=== PATIENT | female | born 1945 | race Caucasian/White ===

== ENCOUNTER → 2018-03-05 | Outpatient (CLI) | payer OTHER ==
--- NOTE | 2018-03-06 07:56 | MAMMOGRAPHY REPORT ---
THIS REPORT HAS BEEN AMENDED. BILATERAL DIGITAL SCREENING MAMMOGRAM TOMOSYNTHESIS WITH CAD: 03/05/2018 CLINICAL HISTORY: Routine screening. Patient has no complaints. TECHNIQUE: The study was acquired using full field digital technology and interpreted from soft copy. Breast tomosynthesis in addition to standard 2D mammography was performed. Current study was also ev aluated with a Computer Aided Detection (CAD) system. COMPARISON: No prior exams were available for comparison. BREAST COMPOSITION: There are scattered areas of fibroglandular density in both breasts. FINDINGS: No suspicious mass, architectural distortion or cluster of microcalcifications is seen. IMPRESSION: ACR BI-RADS CATEGORY 1: NEGATIVE There is no mammographic evidence of malignancy. Prior outside mammograms are currently being reques dwight and if obtained they will be reviewed, compared to the current exam to assess for any more subtle changes, and an addendum will be made to this report. Otherwise, a 1 year screening mammogram is re commended. The patient will receive written notification of the results. Some breast cancers are not detected with mammography. A negative mammographic report should not mariam y biopsy if a clinically suggestive mass is present. Brandy Trujillo M.D. ay/:03/05/2018 17:15:33 Production Consultant: RT Wyatt(Doc)(Tu), [facility] letter sent: Normal 08/13 BI-RADS Code: ACR BI-RADS Category 1: Negative AMENDMENT: 03/12/2018 Brandy Trujillo M.D. Prior outside mammograms from [facility] dated 11/17/2004, 03/10/2009, 03/23/2010, 03/24/2011, , 01/11/2014, 12/12/2015 became available for review. There is stable asymmetry in the posterior right breast along the posterior nipple line on the cc view. No new suspicious masses, asymmetries, areas of architectural distortion or suspicious calcifications identified bilaterally. Recommend ro utine screening mammography in 1 year. Amended BI-RADS: ACR BI-RADS Category 2: Benign letter sent: Normal 08/13
== END | disposition home or self-care (01) ==
LOC: C.MAMM 13:49
PROVIDERS: ATTEND Family Medicine
DX: Z12.31 Encounter for screening mammogram for malignant neoplasm of breast (principal)

== ENCOUNTER 2021-01-11 06:25 | Inpatient (IN) ==
--- NOTE | 2020-12-08 08:55 | PAT Medication Instructions ---
Medication Instructions Date of Service December 08, 2020 Home Medications Medication Instructions Recorded antiarthritic combination no.2 900 See Rx Instructions PO DAILY #90 04/09/19 mg tablet tab solifenacin 5 mg tablet 5 mg PO DAILY #30 tab 11/21/20 amlodipine 5 mg tablet 5 mg PO BID #180 tab 11/24/20 hydrochlorothiazide 25 mg tablet 25 mg PO BID #180 tab 11/24/20 pravastatin 80 mg tablet 80 mg PO DAILY #90 tab 11/24/20 spironolactone 25 mg tablet 25 mg PO BID #60 tab 11/24/20 antiarthritic combination no.2 900 mg tablet See Rx Instructions PO DAILY flaxseed oil 1,000 mg capsule 250 mg PO QAM evening primrose oil 500 mg capsule 1,000 mg PO QAM multivitamin 1 tab PO QAM ascorbic acid (vitamin C) 500 mg tablet 500 mg PO QAM solifenacin 5 mg tablet 5 mg PO DAILY amlodipine 5 mg tablet 5 mg PO BID hydrochlorothiazide 25 mg tablet 25 mg PO BID pravastatin 80 mg tablet 80 mg PO DAILY spironolactone 25 mg tablet 25 mg PO BID biotin 5,000 mcg SL QAM calcium carbonate-vitamin D3 [Calcium + D] 1 tab PO QAM lysine 1,000 mg PO QAM magnesium 250 mg PO QAM vit A-vit B-zxpqlg-xcjt-copper [Wqvn-Inzp-Jucl(vit A,C-biotin)] 1 cap PO QAM vitamin E 400 unit PO BID STOP taking 2 weeks before surgery (or as soon as possible if surgery is within 2 weeks) antiarthritic combination no.2 900 mg tablet See Rx Instructions PO DAILY flaxseed oil 1,000 mg capsule 250 mg PO QAM evening primrose oil 500 mg capsule 1,000 mg PO QAM lysine 1,000 mg PO QAM vit A-vit U-rhrijf-ykau-copper [Cwly-Vvxh-Vedd(vit A,C-biotin)] 1 cap PO QAM vitamin E 400 unit PO BID DO NOT take the morning of surgery multivitamin 1 tab PO QAM ascorbic acid (vitamin C) 500 mg tablet 500 mg PO QAM solifenacin 5 mg tablet 5 mg PO DAILY hydrochlorothiazide 25 mg tablet 25 mg PO BID spironolactone 25 mg tablet 25 mg PO BID biotin 5,000 mcg SL QAM calcium carbonate-vitamin D3 [Calcium + D] 1 tab PO QAM magnesium 250 mg PO QAM Take morning of surgery With a small sip of water, OTHERWISE NOTHING TO EAT OR DRINK AFTER MIDNIGHT: amlodipine 5 mg tablet 5 mg PO BID pravastatin 80 mg tablet 80 mg PO DAILY Take evening before surgery amlodipine 5 mg tablet 5 mg PO BID hydrochlorothiazide 25 mg tablet 25 mg PO BID spironolactone 25 mg tablet 25 mg PO BID Other Notes If you have any questions please call us at [phone] or [phone] or [phone] or [phone]
--- NOTE | 2020-12-12 09:21 | Anesthesiology Consultation ---
Date of Service December 12, 2020 Assessment & Plan (1) Encounter for pre-operative examination: COVID screening: Per assessment on 12/12: Travel screen negative, no known COVID- 19 positive contacts or current COVID-19 related symptoms. Patient fully vaccinated. Surgeon arranging preop COVID testing. Awaiting results. Chart Review Chart Review: Acceptable Risk for Surgery (pending surgeon-ordered PCP and cardiology clearances) and Patient seen in Pre Admission Testing Teaching & Discussion Pre-Anesthesia Teaching/Discussion Notes: Instructed NPO after midnight before surgery,except medications with 15 cc of water. Medication instructions provided according to the PAT guidelines. History Surgery Operation Date: 01/11/21 08:25 Proposed Procedures p Left Total Knee Revision - Yosvany Neumann DO Height/Weight Height: 5 ft 7 in Weight: 84.9 kg Allergies Allergy/AdvReac Type Severity Reaction Status Date / Time cyclobenzaprine AdvReac Severe Hallucinati Verified 12/08/20 13:08 ons gabapentin AdvReac Severe Hallucinati Verified 12/08/20 13:08 ons hydrocodone AdvReac Severe Hallucinati Verified 12/08/20 13:08 ons *AMITRIPTYLINE/PERPHENAZINE Allergy Unknown Unknown Uncoded 12/08/20 13:08 (Generic Allergy) TRIAVIL,FLEXORIL AdvReac Severe Hallucinati Uncoded 12/08/20 13:08 ons Medications Home Medications Medication Instructions Recorded Confirmed Last Taken antiarthritic combination no.2 900 See Rx Instructions PO DAILY #90 04/09/19 12/02/20 Unknown mg tablet tab flaxseed oil 1,000 mg capsule 250 mg PO QAM cap 02/02/20 12/02/20 Unknown evening primrose oil 500 mg capsule 1,000 mg PO QAM cap 06/02/20 12/02/20 Unknown multivitamin 1 tab PO QAM 06/02/20 12/02/20 Unknown ascorbic acid (vitamin C) 500 mg 500 mg PO QAM 09/08/20 12/02/20 Unknown tablet solifenacin 5 mg tablet 5 mg PO DAILY #30 tab 11/21/20 12/02/20 Unknown amlodipine 5 mg tablet 5 mg PO BID #180 tab 11/24/20 12/02/20 Unknown hydrochlorothiazide 25 mg tablet 25 mg PO BID #180 tab 11/24/20 12/02/20 Unknown pravastatin 80 mg tablet 80 mg PO DAILY #90 tab 11/24/20 12/02/20 Unknown spironolactone 25 mg tablet 25 mg PO BID #60 tab 11/24/20 12/02/20 Unknown biotin 5,000 mcg SL QAM 11/30/20 12/02/20 Unknown calcium carbonate-vitamin D3 1 tab PO QAM 11/30/20 12/02/20 Unknown [Calcium + D] lysine 1,000 mg PO QAM 11/30/20 12/02/20 Unknown magnesium 250 mg PO QAM 11/30/20 12/02/20 Unknown vit A-vit L-ehkjbd-bqcn-copper 1 cap PO QAM 11/30/20 12/02/20 Unknown [Oohx-Toym-Alqp(vit A,C-biotin)] vitamin E 400 unit PO BID 11/30/20 12/02/20 Unknown Past Medical History Medical History Alopecia Arthritis Claustrophobia Deep vein thrombosis post-op knee scope (2000) Degenerative disc disease GERD (gastroesophageal reflux disease) History of stomach ulcers History of TIA (transient ischemic attack) 30+ years ago HTN (hypertension) Hyperlipidemia Irregular heartbeat PAC/PVCs- follows with [facility] (Dr. Callahan) Urinary urgency + frequency Exercise / Class Metabolic Activity III < 4 Walking/Shop/Light housework (one flight of stairs (no chest pain, + sob )) Past Family History Family History Aunt Breast cancer Mother Breast cancer Colorectal cancer Father Myocardial infarction Hypertension Brother Parkinson disease Hypertension Grandfather (Maternal) Myocardial infarction Hypertension Grandmother (Maternal) Myocardial infarction Grandmother (Paternal) Myocardial infarction Aunt Breast cancer Aunt Breast cancer Aunt Breast cancer Aunt Breast cancer Aunt Breast cancer Denies family history of Ovarian cancer Prostate cancer Past Surgical History Surgical History H/O oral surgery Gum surgery H/O total hysterectomy History of arthroscopy Left knee History of back surgery x2, removal of Schwannomas (1997 + 1998) History of colonoscopy History of dilatation and curettage History of ear surgery "Water removed" from ear History of esophagogastroduodenoscopy (EGD) History of tonsillectomy and adenoidectomy History of tooth extraction 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 Resolved with "shot." Patient states she was told later that the reason was because they "fo rgot" to give her prescribed post-op medication. No similar issues with other surgeries/anesthesia. Mother- "slow to wake" History of PONV No Hx of PONV and No Hx of Motion Sickness Social History Smoking Status: Never smoker Do You Dip or Chew Tobacco: No Hx Alcohol Use: No Hx Substance Use: No Review of Systems Patient denies chest pain, shortness of breath, fever, chills, cough, wheezing, palpitations. Physical Exam Vital Signs VITALS BP 128/75 P 58 TEMP 98.2 SP02 97%RA RESP 18 PHYSICAL Mildly decreased cervical extension range of motion. Full TMJ range of motion. TMD 3 finger breaths Mallampati Score 3 Dentition: intact, +caps , + bridge (including upper front dental work) Lungs: clear throughout to auscultation Cardiac: regular rate and rhythm, III/ systolic murmur Spine: normal Carotid arteries: negative bruit Extremities: no edema Testing Laboratory Results 12/12/20 09:58 12/12/20 09:58 PT 10.2 Seconds (9.0-12.0) 12/12/20 09:58 INR 1.0 (0.9-1.1) 12/12/20 09:58 APTT 28.8 Seconds (21.0-31.0) 12/12/20 09:58 Hemoglobin A1c 5.7 % (4.5-5.6) H 12/12/20 09:58 Urine Color Dark Yellow 12/12/20 09:58 Urine Appearance Clear (Clear) 12/12/20 09:58 Urine pH 5.0 (4.5-7.5) 12/12/20 09:58 Ur Specific [place] 1.033 (1.000-1.030) H 12/12/20 09:58 Urine Protein Negative (Negative) 12/12/20 09:58 Urine Glucose (UA) Negative (Negative) 12/12/20 09:58 Urine Ketones Trace (Negative) H 12/12/20 09:58 Urine Nitrite Negative (Negative) 12/12/20 09:58 Ur Leukocyte Esterase 1+ (Negative) H 12/12/20 09:58 Urine WBC (Auto) 1-5 /hpf (0-5) 12/12/20 09:58 Urine RBC (Auto) 0-4 /hpf (0-4) 12/12/20 09:58 U Hyaline Cast (Auto) 1-5 /lpf (0-5) 12/12/20 09:58 U Epithel Cells (Auto) >30 /lpf (0-5) H 12/12/20 09:58 Urine Bacteria (Auto) Negative (Negative) 12/12/20 09:58 Blood Type O Positive 12/12/20 09:58 Antibody Screen NEGATIVE 12/12/20 09:58 Electrocardiogram Date: 01/22/20 Sinus rhythm with PVC at 61 bpm. Incomplete right bundle branch block. Moderate voltage criteria for LVH, may be normal variant. Nonspecific ST abnormality. Chest X-Ray Date: 12/12/20 FINDINGS: Lung volumes are normal. Lungs are clear. There is no pneumothorax or pleural effusion. Cardiac size is normal. Mediastinal contours are normal. There is no evidence for pulmonary edema. Incidental note is made of S-shaped scoliosis of the thoracolumbar spine. IMPRESSION: No acute cardiopulmonary findings. Echocardiogram Date: 10/24/18 EF 60 to 65%. No regional wall motion abnormality. Mild concentric LVH. Grade 1 diastolic dysfunction. Mild MR. Moderate TR.
--- NOTE | 2020-12-12 10:41 | XRay Report ---
XR chest Pre-admission PA/Lat CLINICAL HISTORY: Preoperative evaluation. COMPARISON STUDY: No previous studies for comparison. FINDINGS: Lung volumes are normal. Lungs are clear. There is no pneumothorax or pleural effusion. Car diac size is normal. Mediastinal contours are normal. There is no evidence for pulmonary edema. Incid ental note is made of S-shaped scoliosis of the thoracolumbar spine. IMPRESSION: No acute cardiopulmonary findings. ACT 112: Negative or not required by law. Electronically signed by: Sincere Mccoy M.D. 12/12/2020 10:40 AM
[2020-12-12 10:58] LABS: Basophils # (auto) 0.01 K/uL (0-0.2); Basophils % (auto) 0.1 %; Eosinophils % (auto) 1.3 %; Hematocrit (blood only) 42.2 % (37-47); Hemoglobin 14.3 g/dL (12.0-16.0); Immature Granulocytes # (auto) 0.07 K/uL (0.00-0.02); Immature Granulocytes % (auto) 0.9 %; Lymphocytes # (auto) 1.38 K/uL (1.2-3.4); Lymphocytes % (auto) 18.1 %; Mean Corpuscular Hemoglobin 31.5 pg (25-34); Mean Corpuscular Hgb Conc 33.9 g/dL (32-36); Mean Platelet Volume 9.1 fL (7.4-10.4); Monocytes # (auto) 0.74 K/uL (0.11-0.59); Monocytes % (auto) 9.7 %; Neutrophils # (auto) 5.33 K/uL (1.4-6.5); Neutrophils % (auto) 69.9 %; Platelet Count 234 K/uL (130-400); RDW Coefficient of Variation 13.5 % (11.5-14.5); RDW Standard Deviation 45.6 fL (36.4-46.3); Red Blood Count 4.54 M/uL (4.2-5.4); White Blood Count 7.63 K/uL (4.8-10.8)
[2020-12-12 11:05] LABS: Appearance Urine Clear (Clear); Bacteria Urine Automated Negative (Negative); Bilirubin Urine Negative (Negative); Blood Urine Trace (Negative); Color Urine Dark Yellow; Epithelial Cell Urine Auto >30 /lpf (0-5); Glucose Urine UA Negative (Negative); Ketones Urine Trace (Negative); Leukocyte Esterase Urine 1+ (Negative); Nitrite Urine Negative (Negative); Protein Urine Negative (Negative); Specific Gravity Urine 1.033 (1.000-1.030); Urobilinogen Urine Negative (Negative)
[2020-12-12 11:08] LABS: Albumin Level 3.9 gm/dl (3.4-5.0); BUN Creatinine Ratio 35.5 (10-20); Calcium 9.2 mg/dl (8.5-10.1); Est GFR (African American) 68.3; Est GFR (Non-African American) 58.9; Potassium 4.1 mmol/L (3.5-5.1)
[2020-12-12 11:16] LABS: Partial Thromboplastin Ratio 1.1; Partial Thromboplastin Time 28.8 Seconds (21.0-31.0); Prothrombin Time 10.2 Seconds (9.0-12.0)
[2020-12-12 11:26] LABS: RBC Urine Automated 0-4 /hpf (0-4)
[2020-12-12 12:03] LABS: Estimated Average Glucose 117 mg/dl; Hemoglobin A1C 5.7 % (4.5-5.6)
--- NOTE | 2020-12-15 12:05 | History & Physical Report ---
Date of Service December 15, 2020 date of surgery: 01/11/21 Procedure: Left Total Knee Revision Assessment & Plan (1) Aseptic loosening of prosthetic knee: presents with continued left knee pain and instability, her bone scan shows loosening of her knee prosthesis, she would like to proceed with left total knee revision at [facility]. intra-op cultures will be obtained as well. The risks and benefits have been discussed including, but not limited to, risk of infection, nerve injury, stiffness, loss of motion, failure to improve, etc. Reasonable outcomes and options of treatment were discussed. An explanation of appropriate alternatives to the procedure that may be advantageous were discusse d and their risks and benefits, as well as the risks and benefits of not proceeding with treatment. I offered to answer any additional inquiries concerning the treatment involved. All the patient's questions were answered. The patient is agreeable, understanding of the treatment plan and alternatives, and wishes to proceed with the treatment plan. History of Present Illness Chief Complaint: left knee pain Primary Care Provider: Mey Gruber DO Irish is a pleasant 75 year old female who complains of left knee pain, presents for pre op evaluation prior to a left total knee revision arthroplasty at [facility] by Dr Neumann. she originally underwent left TKA by Dr Dangelo on 05/12/2001 and did well for the past several years. she denies any injuries or trauma, denies fever or chills, has intermittent swelling with activities. she also admits to instability to her knee. she had a bone scan performed on 03/10/20 which showed loosening of her left tka. Allergies Allergy/AdvReac Type Severity Reaction Status Date / Time cyclobenzaprine AdvReac Severe Hallucinati Verified 12/08/20 13:08 ons gabapentin AdvReac Severe Hallucinati Verified 12/08/20 13:08 ons hydrocodone AdvReac Severe Hallucinati Verified 12/08/20 13:08 ons *AMITRIPTYLINE/PERPHENAZINE Allergy Unknown Unknown Uncoded 12/08/20 13:08 (Generic Allergy) TRIAVIL,FLEXORIL AdvReac Severe Hallucinati Uncoded 12/08/20 13:08 ons Home Medications Medication Instructions Recorded Confirmed Type antiarthritic combination no.2 900 See Rx Instructions PO DAILY #90 04/09/19 12/02/20 Rx mg tablet tab flaxseed oil 1,000 mg capsule 250 mg PO QAM cap 02/02/20 12/02/20 History evening primrose oil 500 mg capsule 1,000 mg PO QAM cap 06/02/20 12/02/20 History multivitamin 1 tab PO QAM 06/02/20 12/02/20 History ascorbic acid (vitamin C) 500 mg 500 mg PO QAM 09/08/20 12/02/20 History tablet solifenacin 5 mg tablet 5 mg PO DAILY #30 tab 11/21/20 12/02/20 Rx amlodipine 5 mg tablet 5 mg PO BID #180 tab 11/24/20 12/02/20 Rx hydrochlorothiazide 25 mg tablet 25 mg PO BID #180 tab 11/24/20 12/02/20 Rx pravastatin 80 mg tablet 80 mg PO DAILY #90 tab 11/24/20 12/02/20 Rx spironolactone 25 mg tablet 25 mg PO BID #60 tab 11/24/20 12/02/20 Rx biotin 5,000 mcg SL QAM 11/30/20 12/02/20 History calcium carbonate-vitamin D3 1 tab PO QAM 11/30/20 12/02/20 History [Calcium + D] lysine 1,000 mg PO QAM 11/30/20 12/02/20 History magnesium 250 mg PO QAM 11/30/20 12/02/20 History vit A-vit J-pdebwh-grcf-copper 1 cap PO QAM 11/30/20 12/02/20 History [Lgii-Sjaw-Xkra(vit A,C-biotin)] vitamin E 400 unit PO BID 11/30/20 12/02/20 History Past Med/Surg History Medical History Alopecia Arthritis Claustrophobia Deep vein thrombosis post-op knee scope (2000) Degenerative disc disease GERD (gastroesophageal reflux disease) History of stomach ulcers History of TIA (transient ischemic attack) 30+ years ago HTN (hypertension) Hyperlipidemia Irregular heartbeat PAC/PVCs- follows with [facility] (Dr. 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 Family History Aunt Breast cancer Mother Breast cancer Colorectal cancer Father Myocardial infarction Hypertension Brother Parkinson disease Hypertension Grandfather (Maternal) Myocardial infarction Hypertension Grandmother (Maternal) Myocardial infarction Grandmother (Paternal) Myocardial infarction Aunt Breast cancer Aunt Breast cancer Aunt Breast cancer Aunt Breast cancer Aunt Breast cancer Denies family history of Ovarian cancer Prostate cancer Social History Smoking Status: Never smoker Second Hand Exposure: Yes ( A CHILD); Hx Alcohol Use: No Hx Substance Use: No Preferred Language: Welsh Communication Ability: Effective Visual Impairment: No Limitations Hearing Ability: Normal Cutter Machine Required: No Beliefs That Will Affect Care: None marital status: Current Living Situation: Spouse current occupational status: retired Feels Safe at Home: Yes caffeine: No during the past year weight has: remained stable Dental Care, Regularly: Yes Physical Activity Frequency: 3-4 Times per Week Physical Activity Frequency Comment: walking and gardening Seatbelt Use: always Sunscreen Use: Yes Assistive Devices: Glasses Review of Systems Review of Systems: All systems reviewed & are unremarkable except as noted in HPI & below Constitutional: no fever, no chills and no sweats Respiratory: no cough and no dyspnea Cardiovascular: no chest pain, no dyspnea and no orthopnea Gastrointestinal: no abdominal pain, no nausea and no vomiting Musculoskeletal: as per Subjective / HPI Physical Exam Physical Exam: HT: 5ft 7in WT: 84.9kg Constitutional: WD/WN, vitals as above no acute distress Respiratory: normal respiratory effort, lungs clear to auscultation no respiratory distress, no labored breathing and does not use accessory muscles Cardiovascular: RRR, no murmur, no edema Gastrointestinal (Abdomen): normal bowel sounds, soft, nontender, no hepatosplenomegaly Musculoskeletal: Left Knee Exam Ambulates with a limp, overall neutral alignment, there is no atrophy warmth or ecchymosis noted, mild effusion, maximum tenderness medial aspect of her tibia. negative patellar Apprehension , no crepitation with motion, valgus stress Negative, Varus stress Negative, no Extensor lag, Pain with Active range of motion, also passive painful ROM, Range of motion 0/3/115. No pain with active/passive ROM of ankle. Lower Extremity Strength normal. Lower Extremity Neuro-vascular is normal Results & Data Results & Data ([facility]) Laboratory Results Laboratory Results WBC 7.63 K/uL (4.8-10.8) 12/12/20 09:58 RBC 4.54 M/uL (4.2-5.4) 12/12/20 09:58 Hgb 14.3 g/dL (12.0-16.0) 12/12/20 09:58 Hct 42.2 % (37-47) 12/12/20 09:58 MCV 93.0 fL (80-100) 12/12/20 09:58 MCH 31.5 pg (25-34) 12/12/20 09:58 MCHC 33.9 g/dL (32-36) 12/12/20 09:58 RDW Std Deviation 45.6 fL (36.4-46.3) 12/12/20 09:58 RDW Coeff of Ronald 13.5 % (11.5-14.5) 12/12/20 09:58 Plt Count 234 K/uL (130-400) 12/12/20 09:58 MPV 9.1 fL (7.4-10.4) 12/12/20 09:58 Immature Gran % (Auto) 0.9 % 12/12/20 09:58 Neut % (Auto) 69.9 % 12/12/20 09:58 Lymph % (Auto) 18.1 % 12/12/20 09:58 [place] % (Auto) 9.7 % 12/12/20 09:58 Eos % (Auto) 1.3 % 12/12/20 09:58 Baso % (Auto) 0.1 % 12/12/20 09:58 Neut # (Auto) 5.33 K/uL (1.4-6.5) 12/12/20 09:58 Lymph # (Auto) 1.38 K/uL (1.2-3.4) 12/12/20 09:58 [place] # (Auto) 0.74 K/uL (0.11-0.59) H 12/12/20 09:58 Eos # (Auto) 0.10 K/uL (0-0.5) 12/12/20 09:58 Baso # (Auto) 0.01 K/uL (0-0.2) 12/12/20 09:58 Immature Gran # (Auto) 0.07 K/uL (0.00-0.02) H 12/12/20 09:58 PT 10.2 Seconds (9.0-12.0) 12/12/20 09:58 INR 1.0 (0.9-1.1) 12/12/20 09:58 APTT 28.8 Seconds (21.0-31.0) 12/12/20 09:58 PTT Ratio 1.1 12/12/20 09:58 Sodium 138 mmol/L (136-145) 12/12/20 09:58 Potassium 4.1 mmol/L (3.5-5.1) 12/12/20 09:58 Chloride 106 mmol/L (98-107) 12/12/20 09:58 Carbon Dioxide 27 mmol/L (21-32) 12/12/20 09:58 Anion Gap 5.0 (3-11) 12/12/20 09:58 BUN 33 mg/dl (7-18) H 12/12/20 09:58 Creatinine 0.94 mg/dl (0.6-1.2) 12/12/20 09:58 Est Cr Clr Drug Dosing 57.0 ml/min 12/12/20 09:58 Est GFR ( Amer) 68.3 12/12/20 09:58 Est GFR (Non-Af Amer) 58.9 12/12/20 09:58 BUN/Creatinine Ratio 35.5 (10-20) H 12/12/20 09:58 Glucose 107 mg/dl (70-99) H 12/12/20 09:58 Estimat Average Glucose 117 mg/dl 12/12/20 09:58 Hemoglobin A1c 5.7 % (4.5-5.6) H 12/12/20 09:58 Calcium 9.2 mg/dl (8.5-10.1) 12/12/20 09:58 Albumin 3.9 gm/dl (3.4-5.0) 12/12/20 09:58 Urine Color Dark Yellow 12/12/20 09:58 Urine Appearance Clear (Clear) 12/12/20 09:58 Urine pH 5.0 (4.5-7.5) 12/12/20 09:58 Ur Specific [place] 1.033 (1.000-1.030) H 12/12/20 09:58 Urine Protein Negative (Negative) 12/12/20 09:58 Urine Glucose (UA) Negative (Negative) 12/12/20 09:58 Urine Ketones Trace (Negative) H 12/12/20 09:58 Urine Blood Trace (Negative) H 12/12/20 09:58 Urine Nitrite Negative (Negative) 12/12/20 09:58 Urine Bilirubin Negative (Negative) 12/12/20 09:58 Urine Urobilinogen Negative (Negative) 12/12/20 09:58 Ur Leukocyte Esterase 1+ (Negative) H 12/12/20 09:58 Urine WBC (Auto) 1-5 /hpf (0-5) 12/12/20 09:58 Urine RBC (Auto) 0-4 /hpf (0-4) 12/12/20 09:58 U Hyaline Cast (Auto) 1-5 /lpf (0-5) 12/12/20 09:58 U Epithel Cells (Auto) >30 /lpf (0-5) H 12/12/20 09:58 Urine Bacteria (Auto) Negative (Negative) 12/12/20 09:58 Urine Crystals Not Reportable 12/12/20 09:58 Blood Type O Positive 12/12/20 09:58 Antibody Screen NEGATIVE 12/12/20 09:58 Impressions Chest X-Ray 12/12/20 08:14 XR chest Pre-admission PA/Lat CLINICAL HISTORY: Preoperative evaluation. COMPARISON STUDY: No previous studies for comparison. FINDINGS: Lung volumes are normal. Lungs are clear. There is no pneumothorax or pleural effusion. Cardiac size is normal. Mediastinal contours are normal. There is no evidence for pulmonary edema. Incidental note is made of S-shaped scoliosis of the thoracolumbar spine. IMPRESSION: No acute cardiopulmonary findings. ACT 112: Negative or not required by law. Electronically signed by: Sincere Mccoy M.D. 12/12/2020 10:40 AM Diagnostic Findings left knee Radiographs reveal a cemented total knee replacement arthroplasty, question loosening tibial component. The patella is tracking well. ASSESSMENT: status post cemented posterior stabilized total knee replacement arthroplasty with question loosening of tka. bone scan reviewed from 03/10/20 showing loosening of her total knee arthroplasty
[~2021-01-11 06:25] MED LIST: ACETAMINOPHEN 500 MG TAB PO SCH; CeleBREX 200 MG CAP PO SCH; FAMOTIDINE 20 MG TAB PO SCH; GABAPENTIN 300 MG CAP PO SCH; LR 500ML BOLUS, THEN 15ML/HR IV SCH; METOCLOPRAMIDE HCL 10 MG TABLET PO SCH; ROPIVACAINE 0.5% HCL/PF 150 MG, BUPIVACAINE 0.75% MPF 20 ML, EPINEPHrine 30MG/30ML (OR ... INSTIL SCH; Scopolamine 1 MG TDSY TD SCH; ceFAZolin 2000MG 2,000 MG/15 ML SYR IV SCH; dexAMETHasone 4 MG TAB PO SCH
[2021-01-11] MEDS ORDERED: EPINEPHrine INJ 1 MG/ML AMP ONE (06:29)
[2021-01-11] MEDS ORDERED: ROPIVACAINE 0.5% 5 MG/ML 30 ML VIAL ONE (06:29)
[2021-01-11] MEDS ORDERED: BUPIVACAINE 0.5 % 5 MG/1 ML PF 10ML VIAL ONE (06:29)
--- NOTE | 2021-01-11 07:23 | History & Physical Bridge Note ---
Date of Service January 11, 2021 History & Physical Bridge Note I have examined the patient, reviewed the History & Physical and in the interval since the performance of the History & Physical I have noted the following changes of clinical significance: no changes noted
[2021-01-11] MEDS ORDERED: LABETALOL HCL IV 5 MG/ML 20ML IV PRN (08:03)
[2021-01-11] MEDS ORDERED: ONDANSETRON INJ 2 MG/ML 2 ML VIAL IV PRN ×2 (08:03→16:43)
[2021-01-11] MEDS ORDERED: ATROPINE SULFATE 0.1 MG/ML 10ML SYR IV PRN (08:03)
[2021-01-11] MEDS ORDERED: ePHEDrine sulfate 50 MG/ML AMP IV PRN (08:03)
[2021-01-11] MEDS ORDERED: MEPERIDINE HCL 25 MG/ML CARP/VIAL IV PRN (08:03)
[2021-01-11] MEDS ORDERED: PHENYLEPHRINE 100MCG/ML 5ML SYR IV PRN (08:03)
[2021-01-11] MEDS ORDERED: fentaNYL citrate 100 MCG/2 ML VIAL IV PRN (08:03)
[2021-01-11] MEDS ORDERED: MIDAZOLAM HCL 1 MG/ML 2ML VIAL ONE (08:23)
[2021-01-11] MEDS ORDERED: LIDOCAINE 2% 2 ML VIAL/AMP(20MG/ML) INFIL ONE (08:23)
[2021-01-11] MEDS ORDERED: PROPOFOL IV EMULSION 10 MG/ML 20 ML VIAL IV ONE (08:23)
[2021-01-11] MEDS ORDERED: ONDANSETRON INJ 2 MG/ML 2 ML VIAL ONE ×2 (08:23→10:10)
[2021-01-11] MEDS ORDERED: fentaNYL citrate 100 MCG/2 ML VIAL ONE ×3 (08:23→11:19)
[2021-01-11] MEDS ORDERED: ORTHO JOINT ANESTHETIC ONE (09:18)
[2021-01-11] MEDS ORDERED: DEXAMETHASONE SOD INJ 4 MG/ML VIAL ONE (10:10)
[2021-01-11] MEDS ORDERED: HYDROmorphone INJ 2 MG/ML SYR/VIAL ONE (11:59)
--- NOTE | 2021-01-11 12:58 | Operative Report ---
Post Operative Report Pre & Post Diagnosis Operation Date: 01/11/21 08:40 Pre-Op Diagnosis: Left Knee Loose Hardware Post-Op Diagnosis: Left Knee Loose Hardware I identified the patient and participated in the time-out.: Yes Procedure Operation Date: 01/11/21 08:40 Actual Procedures p Left Total Knee Revision(Left) utilizing [employer] Seven revision total knee system size femur 5 x 14 x 162 mm offset 6:00 5 mm medial distal augment tibia size 318 polyethylene ethylene by 13 x 162 mm offset at eleven 5 mm medial 5 mm lateral offset 29 oval patella- Yosvany Neumann DO Surgeon Yosvany Neumann DO [employer] Kuldip POOL Estimated Blood Loss 25 Findings Consistent with Post-Op Diagnosis 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 placed by another surgeon approximately 20 years prior aseptic loosening of the tibia preoperative work-up including sed rate C-reactive protein values were all within normal limits Synovasure was no alpha defense since and a no call no other cultures of any positive growth were noted intraoperative frozen section of of tissue from thin femoral bone interface tibial bone interface revealed less than 5 white cells per high-power field with no acute inflammation noted no organisms the tibial and femoral component were both loose as was the patellar component Specimens Bone and removed implant Drains Medium bore Hemovac Anesthesia Type MAC Spinal Regional Complications none Disposition Accompanied Patient To Recovery: No Disposition: Recovery Room Indications Patient presents after having ongoing complaints of pain about the left total knee arthroplasty and had developing aseptic loosening of the implant patient presents for implant removal intraoperative frozen section as well as a revision total knee arthroplasty utilizing a [employer] total knee arthroplasty as noted above the above intraoperative findings were noted patient is failed attempted conservative management quitting relative rest activity modification bracing the above intraoperative findings were noted Description of Procedure Initiation of regional anesthesia the left lower extremity was socially prepped and draped you sterile fashion surgeon's type incision the region of the previous anterior incision was made dissection was carried down to the region of the extensor mechanism medial parapatellar incision was made the patella was subluxed lateralward the synovectomy was performed at this time the distal femoral component was noted to have loosening and was subsequently removed utilizing a series of small osteotomes flexible artist osteotomes and that was removed a good bone stock was still preserved samples of tissue from the interface at the bone implant interface were sent for frozen section revealed less than 5 white cells per high-power field with no acute inflammation the tibial component was also removed utilizing Ultra-Drive as well as osteotomes and arteries chisels the medial portion of the tibial component was visibly loose part of the stemmed component that was still fixated and it was removed subsequently this the cement was removed from the part of the canal of the tibia the wound was irrigated cups amounts of sterile saline solution the patellar component was noted to have undermining and was also noted to be loose was removed subsequently appropriate reaming for the femur and tibia were performed the sample of the tissue from the interface of the implant on the tibia was also sent for white cells per high-power field was noted to be less than 5 white cells with no acute inflammation cells and performed a thorough irrigation synovectomy irrigation debridement lavage appropriate trials with a 5 femur 14 x 160 with a offset of 2 mm at 6:00 5 mm distal medial augment was placed femoral component was noted excellent fixation fit tibial component was sized to a 3 x 1 8 x 13 with 160 mm stem 2 mm offset at 11:00 with 2 medial and lateral distal augments 5 mm each 29 oval patella recreate normal patellofemoral mechanics socially the components were taken through full range of motion stability to be excellent both flexion extension mid flexion wound was irrigated tourniquet was deflated left down for 20minutes the wound was irrigated the components having been removed the final components were then subsequent brought on the back table the tourniquet was reapplied after 20 minutes of downtime the tourniquet being reinflated the wound was irrigated with copious muscle sterile saline solution the standard joint mix was placed in the posterior capsule and periosteal tissue subsequently the wound having been thoroughly irrigated the tibia followed by the femur followed by the patellar components were also uncemented to think of excellent range of motion with quite excellent stability excess cement was removed the wound having been irrigated the medial parapatellar incision closed with #1 Vicryl the a medium Hemovac in place a deep wound subcu was closed with 0 Vicryl 2-0 Vicryl skin clips sterile compressive dressings placed patient was subsequently taken to recovery in stable condition please note CORINE Naylor was necessary prepping draping traction wound closure of deep fascia subcu skin was necessary for the case I attest to the content of the Intraoperative Record and any orders documented therein. Any exceptions are noted below.
--- NOTE | 2021-01-11 14:28 | XRay Report ---
TWO VIEWS LEFT KNEE CLINICAL HISTORY: Postoperative examination. FINDINGS: AP and crosstable lateral portable views of the left knee are obtained. A left knee arthrop lasty is in near anatomic alignment. There are long tibial and femoral stems. There has been undersur face remodeling of the patella. No acute fracture is seen. There are expected postoperative changes a round the knee including skin clips, a surgical drain, soft tissue edema, and subcutaneous gas. IMPRESSION: Expected postoperative changes status post left knee arthroplasty. No acute fracture is s een. ACT 112: Negative or not required by law. Electronically signed by: Aj Sethi M.D. 01/11/2021 2:27 PM
[2021-01-11] MEDS ORDERED: NALOXONE HCL 0.4 MG/1 ML VIAL/CARP IV STA ×2 (14:29→14:40)
[2021-01-11] MEDS ORDERED: NALOXONE HCL 0.4 MG/1 ML VIAL/CARP ONE (14:29)
--- NOTE | 2021-01-11 15:26 | Communication Note ---
Date of Service: January 11, 2021 The patient was brought to PACU with an oral airway. She was breathing on her own but requiring jaw thrust to maintain respirations. Her vitals remained s table with SpO2 in the high 90s. Her pupils were noted to be significantly miotic. The patient was given several doses of naloxone in PACU. She became more arousable and her pupils slightly dilated. The patient was under general anesthesia for several hours and had received hydromorphone and fentanyl in the OR. The PACU nurses were instructed to monitor the patient and not to give her any further narcotics. Dr. Suggs evaluated the patient with me and will take over her care.
[2021-01-11] MEDS ORDERED: Scopolamine CHECK PATCH PLACEMENT SCH (16:00)
--- NOTE | 2021-01-11 16:37 | Anesthesiology Progress Note ---
Date of Service January 11, 2021 Anesthesia Post Procedure Vital Signs Vital Signs: Temp Pulse Pulse Resp BP Pulse Ox 01/11/21 16:15 65 18 115/69 95 01/11/21 16:05 36.3 C L 69 18 118/65 95 01/11/21 15:55 59 L 14 122/71 97 01/11/21 15:45 61 18 119/72 97 01/11/21 15:35 66 16 123/68 97 01/11/21 15:25 63 16 131/83 95 01/11/21 15:15 67 16 133/70 95 01/11/21 15:05 62 16 126/81 97 01/11/21 14:55 78 16 144/74 H 97 01/11/21 14:45 81 16 132/72 97 01/11/21 14:35 62 14 111/62 95 01/11/21 14:25 63 16 110/62 95 01/11/21 14:15 60 14 103/60 94 01/11/21 14:05 66 14 109/60 94 01/11/21 13:55 70 16 116/59 L 97 01/11/21 13:45 36.5 C 72 16 124/67 97 01/11/21 09:15 62 16 130/70 99 01/11/21 09:10 59 L 16 123/66 98 01/11/21 09:05 61 18 119/65 98 01/11/21 07:06 36.8 C 69 167/92 H 99 Pain Intensity Left Knee: Pain Intensity: 8 Right Leg: Pain Intensity: 9 Transfer of Care Handoff Completed per policy Notes Mental Status: alert / awake / arousable Patient Amnestic to Procedure: Yes Nausea / Vomiting: adequately controlled Pain: adequately controlled Airway Patency, RR, SpO2: stable & adequate BP & HR: stable & adequate Hydration State: stable & adequate Anesthetic Complications: no major complications apparent
[2021-01-11] MEDS ORDERED: bisacodyL 10 MG SUPP PR PRN (16:43)
[2021-01-11] MEDS ORDERED: NALOXONE HCL 0.4 MG/1 ML VIAL/CARP IV PRN (16:43)
[2021-01-11] MEDS ORDERED: MAGNESIUM HYDROXIDE SUSP 30 ML UDC PO PRN (16:43)
[2021-01-11] MEDS ORDERED: HYDROmorphone INJ 0.5 MG/0.5 ML SYR IV PRN (16:43)
--- NOTE | 2021-01-11 16:45 | Anesthesiology Progress Note ---
Date of Service January 11, 2021 Anesthesia Post Procedure Vital Signs Vital Signs: Temp Pulse Pulse Resp BP Pulse Ox 01/11/21 16:15 65 18 115/69 95 01/11/21 16:05 36.3 C L 69 18 118/65 95 01/11/21 15:55 59 L 14 122/71 97 01/11/21 15:45 61 18 119/72 97 01/11/21 15:35 66 16 123/68 97 01/11/21 15:25 63 16 131/83 95 01/11/21 15:15 67 16 133/70 95 01/11/21 15:05 62 16 126/81 97 01/11/21 14:55 78 16 144/74 H 97 01/11/21 14:45 81 16 132/72 97 01/11/21 14:35 62 14 111/62 95 01/11/21 14:25 63 16 110/62 95 01/11/21 14:15 60 14 103/60 94 01/11/21 14:05 66 14 109/60 94 01/11/21 13:55 70 16 116/59 L 97 01/11/21 13:45 36.5 C 72 16 124/67 97 01/11/21 09:15 62 16 130/70 99 01/11/21 09:10 59 L 16 123/66 98 01/11/21 09:05 61 18 119/65 98 01/11/21 07:06 36.8 C 69 167/92 H 99 Pain Intensity Left Knee: Pain Intensity: 8 Right Leg: Pain Intensity: 9 Transfer of Care Handoff Completed per policy Notes Mental Status: alert / awake / arousable and participated in evaluation Patient Amnestic to Procedure: Yes Nausea / Vomiting: adequately controlled Pain: adequately controlled Airway Patency, RR, SpO2: stable & adequate BP & HR: stable & adequate Hydration State: stable & adequate Anesthetic Complications: no major complications apparent
[2021-01-11] MEDS: ceFAZolin 2000MG 2,000 MG/15 ML SYR IV SCH (18:26)
[2021-01-11] MEDS: FERROUS GLUCONATE 324 MG TAB PO SCH (18:26)
[2021-01-11] MEDS: ACETAMINOPHEN 500 MG TAB PO SCH ×2 (18:27→21:51)
[2021-01-11] MEDS: SODIUM CHLORIDE 0.9% 1000ML 1,000 ML IV SCH (18:36)
[2021-01-11] MEDS: oxyCODONE HCL IR 5 MG TAB (IMMEDIATE RELEASE) PO PRN (20:28)
[2021-01-11] MEDS: DOCUSATE SODIUM 100 MG CAP PO SCH (20:38)
[2021-01-11] MEDS: ASPIRIN 81 MG ECTAB PO SCH (20:38)
[2021-01-11] MEDS: SENNA 8.6 MG TAB PO SCH (20:38)
[2021-01-11] MEDS: hydroCHLOROthiazide 25 MG TAB PO SCH (20:46)
[2021-01-11] MEDS: amLODIPine BESYLATE 5 MG TAB PO SCH (20:46)
[2021-01-11] MEDS: SPIRONOLACTONE 25 MG TAB PO SCH (20:46)
[2021-01-12] MEDS: ceFAZolin 2000MG 2,000 MG/15 ML SYR IV SCH (01:55)
[2021-01-12] MEDS: oxyCODONE HCL IR 5 MG TAB (IMMEDIATE RELEASE) PO PRN (02:19)
[2021-01-12] MEDS: SODIUM CHLORIDE 0.9% 1000ML 1,000 ML IV SCH ×2 (02:29→11:43)
[2021-01-12 06:38] LABS: Hematocrit (blood only) 32.2 % (37-47); Mean Corpuscular Hemoglobin 31.9 pg (25-34); Mean Corpuscular Hgb Conc 34.2 g/dL (32-36); Mean Corpuscular Volume 93.3 fL (80-100); Mean Platelet Volume 8.7 fL (7.4-10.4); Platelet Count 220 K/uL (130-400); RDW Coefficient of Variation 13.1 % (11.5-14.5); RDW Standard Deviation 44.9 fL (36.4-46.3); Red Blood Count 3.45 M/uL (4.2-5.4); White Blood Count 24.06 K/uL (4.8-10.8)
--- NOTE | 2021-01-12 07:02 | Orthopedic Progress Note ---
Date of Service January 12, 2021 Assessment & Plan (1) History of revision of total replacement of left knee joint: POD #1 s/p Left TKA revision pt/ot dvt proph with J[facility]/SCD/ASA plan for d/c home with home health PT Admission and Anticipated Discharge Date Admission Date: January 11, 2021 Subjective POD #1 s/p Left TKA revision Review of Systems Constitutional: no fever, no chills and no sweats Respiratory: no cough and no dyspnea Cardiovascular: no chest pain and no dyspnea Gastrointestinal: no abdominal pain, no nausea and no vomiting Physical Exam Physical Exam: Vital Signs Temp 36.2 C L 01/11/21 23:19 Pulse 56 L 01/12/21 02:26 Resp 20 01/12/21 02:26 BP 115/72 01/12/21 02:26 Pulse Ox 96 01/12/21 02:26 Intake & Output 01/11/21 01/12/21 01/12/21 18:59 06:59 18:59 Intake Total 1550 / 2538.333 988.333 / 2538.333 Output Total 465 / 1340 875 / 1340 Balance 1085 / 1198.333 113.333 / 1198.333 Weight 86.772 kg Intake: IV 0 / 788.333 788.333 / 788.333 Lactated Ringe r's 1,000 ml @ 15 0 / 0 mls/hr IV .Q24 H [facility] Rx#: [id number] Sodium Chlorid e 0.9% 1000ML 1, 788.333 / 788.333 000 ml @ 100 m ls/hr IV .Q10H [facility] Rx#:[id number] IV Perioperative 1550 / 1550 Oral 200 / 200 Output: Estimated Blood Loss 25 / 25 Urine Amount (Ca theter) 300 / 875 575 / 875 Zavala/Indwelli ng 300 / 875 575 / 875 Drain Output 140 / 440 300 / 440 Left Knee Hemo vac 140 / 440 300 / 440 Other: Weight Measureme nt Method Standing Scale Constitutional: WD/WN, vitals as above + acute distress Musculoskeletal: Left Leg: NVDI, calf SNT, negative eitan sign. DP palpable, able to wiggle toes/ankle movement without difficulty. dressing clean dry and intact. Vital Signs Temp 36.2 C L 01/11/21 23:19 Pulse 56 L 06/03/21 02:26 Resp 20 01/12/21 02:26 BP 115/72 01/12/21 02:26 Pulse Ox 96 01/12/21 02:26 Intake & Output 01/11/21 01/12/21 01/12/21 18:59 06:59 18:59 Intake Total 1550 / 2538.333 988.333 / 2538.333 Output Total 465 / 1340 875 / 1340 Balance 1085 / 1198.333 113.333 / 1198.333 Weight 86.772 kg Intake: IV 0 / 788.333 788.333 / 788.333 Lactated Ringe r's 1,000 ml @ 15 0 / 0 mls/hr IV .Q24 H [facility] Rx#: [id number] Sodium Chlorid e 0.9% 1000ML 1, 788.333 / 788.333 000 ml @ 100 m ls/hr IV .Q10H [facility] Rx#:[id number] IV Perioperative 1550 / 1550 Oral 200 / 200 Output: Estimated Blood Loss 25 / 25 Urine Amount (Ca theter) 300 / 875 575 / 875 Zavala/Indwelli ng 300 / 875 575 / 875 Drain Output 140 / 440 300 / 440 Left Knee Hemo vac 140 / 440 300 / 440 Other: Weight Measureme nt Method Standing Scale Results & Data ([facility]) Vital Signs (Past 12 Hours) Vital Signs Temp Pulse Resp BP Pulse Ox 01/12/21 02:26 56 L 20 115/72 96 01/11/21 23:19 36.2 C L 53 L 16 100/61 95 01/11/21 20:43 64 127/75 98 01/11/21 19:13 36.3 C L 55 L 16 116/71 95 Laboratory Results Laboratory Results WBC 24.06 K/uL (4.8-10.8) H 01/12/21 06:27 RBC 3.45 M/uL (4.2-5.4) L 01/12/21 06:27 Hgb 11.0 g/dL (12.0-16.0) L 01/12/21 06:27 Hct 32.2 % (37-47) L 01/12/21 06:27 MCV 93.3 fL (80-100) 01/12/21 06:27 MCH 31.9 pg (25-34) 01/12/21 06:27 MCHC 34.2 g/dL (32-36) 01/12/21 06:27 RDW Std Deviation 44.9 fL (36.4-46.3) 01/12/21 06:27 RDW Coeff of Ronald 13.1 % (11.5-14.5) 01/12/21 06:27 Plt Count 220 K/uL (130-400) 01/12/21 06:27 MPV 8.7 fL (7.4-10.4) 01/12/21 06:27 Immature Gran % (Auto) 0.9 % 12/12/20 09:58 Neut % (Auto) 69.9 % 12/12/20 09:58 Lymph % (Auto) 18.1 % 12/12/20 09:58 [place] % (Auto) 9.7 % 12/12/20 09:58 Eos % (Auto) 1.3 % 12/12/20 09:58 Baso % (Auto) 0.1 % 12/12/20 09:58 Neut # (Auto) 5.33 K/uL (1.4-6.5) 12/12/20 09:58 Lymph # (Auto) 1.38 K/uL (1.2-3.4) 12/12/20 09:58 [place] # (Auto) 0.74 K/uL (0.11-0.59) H 12/12/20 09:58 Eos # (Auto) 0.10 K/uL (0-0.5) 12/12/20 09:58 Baso # (Auto) 0.01 K/uL (0-0.2) 12/12/20 09:58 Immature Gran # (Auto) 0.07 K/uL (0.00-0.02) H 12/12/20 09:58 PT 10.2 Seconds (9.0-12.0) 12/12/20 09:58 INR 1.0 (0.9-1.1) 12/12/20 09:58 APTT 28.8 Seconds (21.0-31.0) 12/12/20 09:58 PTT Ratio 1.1 12/12/20 09:58 Sodium 138 mmol/L (136-145) 12/12/20 09:58 Potassium 4.1 mmol/L (3.5-5.1) 12/12/20 09:58 Chloride 106 mmol/L (98-107) 12/12/20 09:58 Carbon Dioxide 27 mmol/L (21-32) 12/12/20 09:58 Anion Gap 5.0 (3-11) 12/12/20 09:58 BUN 33 mg/dl (7-18) H 12/12/20 09:58 Creatinine 0.94 mg/dl (0.6-1.2) 12/12/20 09:58 Est Cr Clr Drug Dosing 57.0 ml/min 12/12/20 09:58 Est GFR ( Amer) 68.3 12/12/20 09:58 Est GFR (Non-Af Amer) 58.9 12/12/20 09:58 BUN/Creatinine Ratio 35.5 (10-20) H 12/12/20 09:58 Glucose 107 mg/dl (70-99) H 12/12/20 09:58 Estimat Average Glucose 117 mg/dl 12/12/20 09:58 Hemoglobin A1c 5.7 % (4.5-5.6) H 12/12/20 09:58 Calcium 9.2 mg/dl (8.5-10.1) 12/12/20 09:58 Albumin 3.9 gm/dl (3.4-5.0) 12/12/20 09:58 Urine Color Dark Yellow 12/12/20 09:58 Urine Appearance Clear (Clear) 12/12/20 09:58 Urine pH 5.0 (4.5-7.5) 12/12/20 09:58 Ur Specific [place] 1.033 (1.000-1.030) H 12/12/20 09:58 Urine Protein Negative (Negative) 12/12/20 09:58 Urine Glucose (UA) Negative (Negative) 12/12/20 09:58 Urine Ketones Trace (Negative) H 12/12/20 09:58 Urine Blood Trace (Negative) H 12/12/20 09:58 Urine Nitrite Negative (Negative) 12/12/20 09:58 Urine Bilirubin Negative (Negative) 12/12/20 09:58 Urine Urobilinogen Negative (Negative) 12/12/20 09:58 Ur Leukocyte Esterase 1+ (Negative) H 12/12/20 09:58 Urine WBC (Auto) 1-5 /hpf (0-5) 12/12/20 09:58 Urine RBC (Auto) 0-4 /hpf (0-4) 12/12/20 09:58 U Hyaline Cast (Auto) 1-5 /lpf (0-5) 12/12/20 09:58 U Epithel Cells (Auto) >30 /lpf (0-5) H 12/12/20 09:58 Urine Bacteria (Auto) Negative (Negative) 12/12/20 09:58 Urine Crystals Not Reportable 12/12/20 09:58 COVID-19 Eval Order Covid19 [facility]Now [facility] 01/11/21 06:45 SARS-CoV-2, RNA, NAAT NEGATIVE (NEGATIVE) 01/11/21 06:45 Blood Type O Positive 01/11/21 06:51 Antibody Screen NEGATIVE 01/11/21 06:51 Crossmatch See Detail 01/11/21 06:51 Impressions Chest X-Ray 12/12/20 08:14 XR chest Pre-admission PA/Lat CLINICAL HISTORY: Preoperative evaluation. COMPARISON STUDY: No previous studies for comparison. FINDINGS: Lung volumes are normal. Lungs are clear. There is no pneumothorax or pleural effusion. Cardiac size is normal. Mediastinal contours are normal. There is no evidence for pulmonary edema. Incidental note is made of S-shaped scoliosis of the thoracolumbar spine. IMPRESSION: No acute cardiopulmonary findings. ACT 112: Negative or not required by law. Electronically signed by: Sincere Mccoy M.D. 12/12/2020 10:40 AM Knee X-Ray 01/11/21 13:55 TWO VIEWS LEFT KNEE CLINICAL HISTORY: Postoperative examination. FINDINGS: AP and crosstable lateral portable views of the left knee are obtained. A left knee arthroplasty is in near anatomic alignment. There are long tibial and femoral stems. There has been undersurface remodeling of the patella. No acute fracture is seen. There are expected postoperative changes around the knee including skin clips, a surgical drain, soft tissue edema, and subcutaneous gas. IMPRESSION: Expected postoperative changes status post left knee arthroplasty. No acute fracture is seen. ACT 112: Negative or not required by law. Electronically signed by: Aj Sethi M.D. 01/11/2021 2:27 PM
[2021-01-12 07:19] LABS: BUN Creatinine Ratio 26.9 (10-20); Calcium 8.5 mg/dl (8.5-10.1); Creatinine Clr Calc Pharmacy 43.3 ml/min; Est GFR (African American) 48.4 ml/min; Est GFR (Non-African American) 41.8 ml/min
[2021-01-12] MEDS: ACETAMINOPHEN 500 MG TAB PO SCH ×3 (07:52→21:26)
[2021-01-12] MEDS: FERROUS GLUCONATE 324 MG TAB PO SCH ×2 (09:59→18:12)
[2021-01-12] MEDS: amLODIPine BESYLATE 5 MG TAB PO SCH (10:01)
[2021-01-12] MEDS: ASCORBIC ACID 500 MG TAB PO SCH (10:03)
[2021-01-12] MEDS: ASPIRIN 81 MG ECTAB PO SCH ×2 (10:03→20:00)
[2021-01-12] MEDS: CALCIUM 600MG + VIT D 400 IU TAB PO SCH (10:04)
[2021-01-12] MEDS: DOCUSATE SODIUM 100 MG CAP PO SCH ×2 (10:06→20:00)
[2021-01-12] MEDS: MAGNESIUM OXIDE 400 MG TAB PO SCH (10:09)
[2021-01-12] MEDS: MULTIVITAMIN TAB PO SCH (10:10)
[2021-01-12] MEDS: PRAVASTATIN SOD 40 MG TAB PO SCH (10:11)
[2021-01-12] MEDS: SPIRONOLACTONE 25 MG TAB PO SCH (10:15)
[2021-01-12] MEDS: hydroCHLOROthiazide 25 MG TAB PO SCH (10:15)
--- NOTE | 2021-01-12 10:37 | XRay Report ---
XR chest 1V portable CLINICAL HISTORY: elevated WBC COMPARISON STUDY: Chest radiograph December 12, 2020. FINDINGS: Lung volumes are diminished. There is S-shaped scoliosis of the thoracolumbar spine. No pne umothorax or pleural effusion is noted. Mild enlargement of the cardiac silhouette is accentuated on this hypoventilatory study. There is minimal left basilar opacity. This favors atelectasis. There may be minimal right basilar opacity. IMPRESSION: Low lung volumes with minimal bibasilar opacities that favor atelectasis. ACT 112: Negative or not required by law. Electronically signed by: Sincere Mccoy M.D. 01/12/2021 10:36 AM
--- NOTE | 2021-01-12 10:49 | Hospitalist Consultation ---
Date of Consultation January 12, 2021 Assessment & Plan (1) Confusion, postoperative: POD 1 s/p L TKA revision with Dr. Neumann PT/OT/pain management/DVT prophylaxis per primary service (ASA 81mg BID) --> developed confusion overnight and ended up pulling out IV, Kaminski and her surgical drain Of note, per anesthesia note yesterday afternoon, "The patient was brought to PACU with an oral airway. She was breathing on her own but requiring jaw thrust to maintain respirations. Her vitals remained stable with SpO2 in the high 90s. Her pupils were noted to be significantly miotic. The patient was given several doses of naloxone in PACU. She became more arousable and her pupils slightly dilated. The patient was under general anesthesia for several hours and had received hydromorphone and fentanyl in the OR. The PACU nurses were instructed to monitor the patient and not to give her any further narcotics. Dr. Suggs evaluated the patient with me and will take over her care. " Possible prior adverse rxn to anesthesia vs pain medications vs infection/inflammatory response -- Allergy to hydrocodone with hallucinations (she did also get a scopolamine patch pre-op and anticholinergic with anesthesia may also be contributing) She recalls looking down and seeing blood but did not remember events. Did get dose of oxycodone around 2am and this may be culprit but will also investigate other causes WBC elevated to 24k post-operative from 5.5k. Bicarb 20 H/h dropped from 14.3/11 -- acute blood loss anemia from surgery/above and dilutional from IVF which have since been discontinued Will obtain CXR, repeat UA (hx hematuria in setting of UTI/urinary freq/urg and started vesicae recently to help), ammonia, TSH, EKG Hold HCTZ and spironolactone -- IVF ordered for MICHELLE and dehydration Avoid oxycodone -- utilize tramadol if needed but would try to get relief with Tylenol alone for now *CXR with atelectasis but possible L basilar opacity -- Ordered incentive spirometer -- 91% on RA Continue to monitor (2) History of revision of total replacement of left knee joint: pod 1 management per surgery (3) HTN (hypertension): BP slightly low -- recent addition of BP medication last year and followed by Dr Dranov 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 evening but will hold AM HCTZ, Spironolactone given MICHELLE Cr 1.24 and provide some IVF Resume on reassessment of BP/BMP Continue to monitor (4) Hyperlipidemia: continue statin (5) History of TIA (transient ischemic attack): Hx of, related to poorly controlled blood pressure -- on ASA on "as needed basis" and pravastatin 80mg daily ASA 81 -- on BID for DVT proph No focal deficits at this time (6) Diastolic dysfunction: follows locally w Dr Callahan last echo in October 2018 noting EF 60-65%, grade 1 diastolic dysfunction, Mild MR, mod TR hypovolemic as above (7) Incomplete RBBB: Hx of -- repeating EKG, trop (8) Hypothyroidism: Supposed history of such, but per most recent PCP note, currently not on medication and noted patient was told her thyroid function is ok -- did previously try medication however did not feel well with medication apparently and last TSH in May 2020 was within normal range Repeating TSH DVT Proph -- ASA 81mg BID Thank you for allowing hospitalist to participate int he care of Ms Muhammad. Hospitalist service will follow along. Please call with any urgent questions/concerns. Supervising Physician Co-Signing Physician Notes Patient was seen and examined independently I discussed the case with Ana Drake PAC I reviewed pertinent past medical social family history and also the plan of care and agree with the plan of care. Patient was seen in her room without much distress her leg looked to be fine no explanation for her leukocytosis the previous noted issues with her oxycodone and the seemingly resolved. Physical neurological exam was found to be nonfocal her knee looked to be with typical postoperative changes there is no changes with regard to her pulmonary exam or abdominal exam. This time will recommend having a hospital overnight because of her white count 24,000 and mental status changes this morning. We will continue to evaluate her Any exceptions will be noted below History of Present Illness Reason for Consultation: post op med management -- post-op confusion Requesting Physician: Dr Neumann Attending Physician: Yosvany Neumann DO History of Present Illness 75 yo female presented for LEFT TKA revision by Dr Neumann. She had been doing well until overnight after administration of oxycodone around 2am and subsequently pulled her IV site, kaminski catheter and Hemovac out. She states she does not remember doing this until after it happened. There may be a chance she has had issues with anesthesia in the past however it does appear that this could have been another family member but she does endorse waking up from anethesia and feeling like something was sitting on her chest and seeing a white cloud when she was in [place] for prior surgery. She states she is very sensitive to medications and that she cannot take hydrocodone. Discussed may possibly be from the oxycodone and we will try alternative medications for pain control if needed to avoid further confusion. She denies fever, chills, chest pain. She endorses chronic shortness of breath w ith exertion but denies any increased shortness of breath, cough, or sputum production. Does have some suprapubic discomfort but she states this is chronic. No visual changes, blurred vision, neck pain or headache. Of note, she states her BP was elevated significantly last summer and her Turning Machine Operator, Dr Callahan, got her in with nephrology and they have added several medications to help gain better control, which she notes has been excellent since starting these medications. Review of her chart indicates elevated WBC to 24k from 5k pre-operatively. Cr elevated to 1.24 from normal baseline. Will place on IVF, obtain CXR and repeat UA. No focal deficits, given her hx of TIA. No need for CT Head at this time. She did have a DVT post-op knee scope 2010 -- does have swelling and slightly tender. Will get Venous Doppler to r/o DVT. Allergies Allergy/AdvReac Type Severity Reaction Status Date / Time cyclobenzaprine AdvReac Severe Hallucinati Verified 01/11/21 06:47 ons gabapentin AdvReac Severe Hallucinati Verified 01/11/21 06:47 ons hydrocodone AdvReac Severe Hallucinati Verified 01/11/21 06:47 ons amitriptyline AdvReac Hallucinati Verified 01/11/21 08:14 ng perphenazine AdvReac Hallucinati Verified 01/11/21 08:14 ng Home Medications Medication Instructions Recorded Confirmed Type antiarthritic combination no.2 900 See Rx Instructions PO DAILY #90 04/09/19 01/11/21 Rx mg tablet tab flaxseed oil 1,000 mg capsule 250 mg PO QAM cap 02/02/20 01/11/21 History evening primrose oil 500 mg capsule 1,000 mg PO QAM cap 06/02/20 01/11/21 History multivitamin 1 tab PO QAM 06/02/20 01/11/21 History ascorbic acid (vitamin C) 500 mg 500 mg PO QAM 09/08/20 01/11/21 History tablet solifenacin 5 mg tablet 5 mg PO DAILY #30 tab 11/21/20 01/11/21 Rx amlodipine 5 mg tablet 5 mg PO BID #180 tab 11/24/20 01/11/21 Rx hydrochlorothiazide 25 mg tablet 25 mg PO BID #180 tab 11/24/20 01/11/21 Rx pravastatin 80 mg tablet 80 mg PO DAILY #90 tab 11/24/20 01/11/21 Rx biotin 5,000 mcg SL QAM 11/30/20 01/11/21 History calcium carbonate-vitamin D3 1 tab PO QAM 11/30/20 01/11/21 History [Calcium + D] lysine 1,000 mg PO QAM 11/30/20 01/11/21 History magnesium 250 mg PO QAM 11/30/20 01/11/21 History vit A-vit H-kpiecu-fnhh-copper 1 cap PO QAM 11/30/20 01/11/21 History [Qeoq-Utkv-Nces(vit A,C-biotin)] vitamin E 400 unit PO BID 11/30/20 01/11/21 History spironolactone 25 mg tablet 25 mg PO BID #180 tab 12/20/20 01/11/21 Rx Patient History Medical History Alopecia Arthritis Claustrophobia Deep vein thrombosis post-op knee scope (2000) Degenerative disc disease GERD (gastroesophageal reflux disease) History of stomach ulcers History of TIA (transient ischemic attack) 30+ years ago HTN (hypertension) Hyperlipidemia Irregular heartbeat PAC/PVCs- follows with [facility] (Dr. 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 Family History Aunt Breast cancer Mother Breast cancer Colorectal cancer Father Myocardial infarction Hypertension Brother Parkinson disease Hypertension Grandfather (Maternal) Myocardial infarction Hypertension Grandmother (Maternal) Myocardial infarction Grandmother (Paternal) Myocardial infarction Aunt Breast cancer Aunt Breast cancer Aunt Breast cancer Aunt Breast cancer Aunt Breast cancer Denies family history of Ovarian cancer Prostate cancer Social History Smoking Status: Never smoker Second Hand Exposure: Yes ( A CHILD); Do You Dip or Chew Tobacco: No; Hx Alcohol Use: No Hx Substance Use: No Preferred Language: Sinhala Communication Ability: Effective Visual Impairment: No Limitations Hearing Ability: Normal Client Retention Specialist Required: No Beliefs That Will Affect Care: None marital status: Current Living Situation: Spouse current occupational status: retired How many Children do You have: 2 Feels Safe at Home: Yes Safety Concerns: Feels Safe At This Time caffeine: No during the past year weight has: remained stable Dental Care, Regularly: Yes Physical Activity Frequency: 3-4 Times per Week Physical Activity Frequency Comment: walking and gardening Seatbelt Use: always Sunscreen Use: Yes Assistive Devices: Walker Review of Systems Review of Systems: All systems reviewed & are unremarkable except as noted in HPI & below Physical Exam Constitutional: WD/WN, vitals as above cooperative and comfortable; no acute distress confused at times Eyes: + anicteric sclerae and PERRL ENMT: Ears: no hearing impairment dry mm Neck: trachea midline, no thyromegaly Respiratory: normal respiratory effort, lungs clear to auscultation Auscultation: + crackles (bibasilar) Cardiovascular: Rate/Rhythm: regular rate and regular rhythm Heart Sounds: + murmur (ANGELA) Vessels: no JVD Extremities: + calf tenderness (L leg) and + edema (L leg) Gastrointestinal (Abdomen): Inspection/Auscultation: abdomen normal to inspection and normal bowel sounds Percussion/Palpation: + abdomen tender (suprapubic) and abdomen soft; no guarding and abdomen not rigid Musculoskeletal: dressing to R knee c/d/i prevena/hemovac not intact NVI pulses palpable L calf tender to palpation strength equal b/l Skin: no rashes, warm and dry Neurologic: patellar DTR's 2+ bilat, sensation intact and PERRL, EOMI, accommodation nl, no face palsy, no dysarthria Psychiatric: Orientation: alert, oriented to person, oriented to place, oriented to time (intermittient confusion) and cooperative Genitourinary: NO KAMINSKI Results & Data Results & Data ([facility]) Vital Signs (Past 12 Hours) Vital Signs Temp Pulse Resp BP BP Pulse Ox 01/12/21 07:11 36.7 C 60 16 113/65 91 01/12/21 02:26 56 L 20 115/72 96 01/11/21 23:19 36.2 C L 53 L 16 100/61 95 Laboratory Results 01/12/21 01/12/21 Range/Units 06:27 06:27 WBC 24.06 H (4.8-10.8) K/uL RBC 3.45 L (4.2-5.4) M/uL Hgb 11.0 L (12.0-16.0) g/dL Hct 32.2 L (37-47) % MCV 93.3 (80-100) fL MCH 31.9 (25-34) pg MCHC 34.2 (32-36) g/dL RDW Std Deviation 44.9 (36.4-46.3) fL RDW Coeff of Ronald 13.1 (11.5-14.5) % Plt Count 220 (130-400) K/uL MPV 8.7 (7.4-10.4) fL Sodium 138 (136-145) mmol/L Potassium 4.0 (3.5-5.1) mmol/L Chloride 107 (98-107) mmol/L Carbon Dioxide 20 L (21-32) mmol/L Anion Gap 11.0 (3-11) BUN 34 H (7-18) mg/dl Creatinine 1.25 H (0.6-1.2) mg/dl Est Cr Clr Drug Dosing 43.3 ml/min Est GFR ( Amer) 48.4 ml/min Est GFR (Non-Af Amer) 41.8 ml/min BUN/Creatinine Ratio 26.9 H (10-20) Glucose 137 H (70-99) mg/dl Calcium 8.5 (8.5-10.1) mg/dl Diagnostic Findings Knee X-Ray 01/11/21 13:55 TWO VIEWS LEFT KNEE CLINICAL HISTORY: Postoperative examination. FINDINGS: AP and crosstable lateral portable views of the left knee are obtained. A left knee arthroplasty is in near anatomic alignment. There are long tibial and femoral stems. There has been undersurface remodeling of the patella. No acute fracture is seen. There are expected postoperative changes around the knee including skin clips, a surgical drain, soft tissue edema, and subcutaneous gas. IMPRESSION: Expected postoperative changes status post left knee arthroplasty. No acute fracture is seen. ACT 112: Negative or not required by law. Electronically signed by: Aj Sethi M.D. 01/11/2021 2:27 PM Chest X-Ray 01/12/21 10:04 XR chest 1V portable CLINICAL HISTORY: elevated WBC COMPARISON STUDY: Chest radiograph December 12, 2020. FINDINGS: Lung volumes are diminished. There is S-shaped scoliosis of the thoracolumbar spine. No pneumothorax or pleural effusion is noted. Mild enlargement of the cardiac silhouette is accentuated on this hypoventilatory study. There is minimal left basilar opacity. This favors atelectasis. There may be minimal right basilar opacity. IMPRESSION: Low lung volumes with minimal bibasilar opacities that favor atelectasis. ACT 112: Negative or not required by law. Electronically signed by: Sincere Mccoy M.D. 01/12/2021 10:36 AM PG Care Time/CCT Total # of Minutes Spent Total Time Spent with Patient: Total time spent is greater than 50% in coordination of care (as documented) at patient's floor/unit and/or counseling patient: Coding Level of Care Code 65476 Office/OBS Consult Lvl 3 Diagnoses Confusion, postoperative R41.0 History of revision of total replacement of left knee joint Z96.652 HTN (hypertension) I10 Hyperlipidemia E78.5 History of TIA (transient ischemic attack) Z86.73 Diastolic dysfunction I51.89 Incomplete RBBB I45.10 Hypothyroidism E03.9
[2021-01-12 11:56] LABS: Thyroid Stimulating Hormone 0.389 uIu/ml (0.300-4.500); Troponin I < 0.015 ng/ml (0-0.045)
--- NOTE | 2021-01-12 12:36 | Electrocardiogram Report ---
Test Reason : Blood Pressure : / mmHG Vent. Rate : 058 BPM Atrial Rate : 058 BPM P-R Int : 162 ms QRS Dur : 108 ms QT Int : 438 ms P-R-T Axes : 006 -13 007 degrees QTc Int : 429 ms Poor data quality, interpretation may be adversely affected Sinus bradycardia Voltage criteria for left ventricular hypertrophy Abnormal ECG When compared with ECG of 24-APR-2001 15:45, No significant change was found Confirmed by Carmelo Teixeira ([id number]) on 01/12/2021 12:36:03 PM Referred By: Yosvany Neumann Confirmed By:Carmelo Teixeira
[2021-01-12 13:27] LABS: Appearance Urine Clear (Clear); Bacteria Urine Automated Negative (Negative); Bilirubin Urine Negative (Negative); Blood Urine 3+ (Negative); Color Urine Yellow; Epithelial Cell Urine Auto >30 /lpf (0-5); Glucose Urine UA Negative (Negative); Ketones Urine Negative (Negative); Leukocyte Esterase Urine 2+ (Negative); Nitrite Urine Negative (Negative); Protein Urine Negative (Negative); RBC Urine Automated >30 /hpf (0-4); Specific Gravity Urine 1.016 (1.000-1.030); Urobilinogen Urine Negative (Negative)
--- NOTE | 2021-01-12 13:56 | Ultrasound Report ---
LEFT LOWER EXTREMITY VENOUS DOPPLER CLINICAL HISTORY: Left lower extremity pain and swelling. COMPARISON STUDY: No previous studies for comparison. TECHNIQUE: Sonography of the deep venous system of the left lower extremity was performed. Compressi on and augmentation were evaluated. FINDINGS: The left common femoral, superficial femoral and popliteal veins were compressible. Augmen tation was normal. Flow was shown within the deep calf vessels. IMPRESSION: No evidence of deep venous thrombus within the left lower extremity. ACT 112: Negative or not required by law. Electronically signed by: Sincere Mccoy M.D. 01/12/2021 1:54 PM
[2021-01-12 14:17] LABS: Hematocrit (blood only) 31.3 % (37-47); Hemoglobin 10.6 g/dL (12.0-16.0); Mean Corpuscular Hemoglobin 31.1 pg (25-34); Mean Corpuscular Hgb Conc 33.9 g/dL (32-36); Mean Corpuscular Volume 91.8 fL (80-100); Platelet Count 222 K/uL (130-400); RDW Coefficient of Variation 13.4 % (11.5-14.5); RDW Standard Deviation 44.7 fL (36.4-46.3); Red Blood Count 3.41 M/uL (4.2-5.4); White Blood Count 23.74 K/uL (4.8-10.8)
[2021-01-12 14:40] LABS: Basophils # (auto) 0.02 K/uL (0-0.2); Basophils % (auto) 0.1 %; Immature Granulocytes % (auto) 0.4 %; Lymphocytes # (auto) 0.73 K/uL (1.2-3.4); Lymphocytes % (auto) 3.1 %; Monocytes # (auto) 1.83 K/uL (0.11-0.59); Monocytes % (auto) 7.7 %; Neutrophils # (auto) 21.06 K/uL (1.4-6.5); Neutrophils % (auto) 88.7 %
[2021-01-12] MEDS ORDERED: cefTRIAXone SODIUM 2,000 MG in DEXTROSE 5% 50 ML IV SCH (17:00)
--- NOTE | 2021-01-12 17:55 | Ultrasound Report ---
ULTRASOUND KIDNEYS AND BLADDER CLINICAL HISTORY: Hematuria. Low back pain. COMPARISON STUDY: Renal ultrasound dated 05/19/2020. TECHNIQUE: Real-time, grayscale, and color flow sonography of the kidneys and bladder is performed. I mages are reviewed in the transverse and longitudinal planes. FINDINGS: Kidneys: The kidneys demonstrate cortical atrophy. Echotexture is normal. The right kidney measures 1 3.1 x 5.1 x 5.7 cm and the left kidney measures 11.8 x 5.9 x 5.5 cm. There is no hydronephrosis. No shadowing renal calculi are identified. A 1.2 cm cyst is incidentally noted on the left. There is no sonographic evidence of contour deforming renal mass lesion. No perinephric fluid is identified. Bladder: The bladder is normal in appearance. Bilateral ureteral jets were seen. Upper abdomen: Survey images of the liver show evidence of steatosis. IMPRESSION: 1. The kidneys demonstrate cortical atrophy and are without hydronephrosis. 2. No shadowing renal calculi are identified. 3. The bladder is normal as imaged. ACT 112: Negative or not required by law. Electronically signed by: Aj Sethi M.D. 01/12/2021 5:54 PM
[2021-01-12] MEDS: traMADol HCL 50 MG TABLET PO PRN (18:01)
[2021-01-12] MEDS: SENNA 8.6 MG TAB PO SCH (20:00)
[2021-01-13] MEDS: SODIUM CHLORIDE 0.9% 1000ML 1,000 ML IV SCH (00:50)
[2021-01-13] MEDS: traMADol HCL 50 MG TABLET PO PRN (03:21)
[2021-01-13] MEDS: ACETAMINOPHEN 500 MG TAB PO SCH (05:53)
[2021-01-13 06:38] LABS: Hematocrit (blood only) 29.6 % (37-47); Hemoglobin 9.8 g/dL (12.0-16.0); Immature Granulocytes # (auto) 0.06 K/uL (0.00-0.02); Immature Granulocytes % (auto) 0.4 %; Lymphocytes # (auto) 1.18 K/uL (1.2-3.4); Lymphocytes % (auto) 7.8 %; Mean Corpuscular Hemoglobin 31.6 pg (25-34); Mean Corpuscular Hgb Conc 33.1 g/dL (32-36); Mean Corpuscular Volume 95.5 fL (80-100); Mean Platelet Volume 9.2 fL (7.4-10.4); Monocytes # (auto) 1.12 K/uL (0.11-0.59); Monocytes % (auto) 7.4 %; Neutrophils # (auto) 12.82 K/uL (1.4-6.5); Neutrophils % (auto) 84.4 %; Nucleated RBC # (auto) 0.03 K/uL (0-0); Nucleated RBC % (auto) 0.2 %; Platelet Count 212 K/uL (130-400); RDW Coefficient of Variation 13.7 % (11.5-14.5); RDW Standard Deviation 47.4 fL (36.4-46.3); White Blood Count 15.18 K/uL (4.8-10.8)
[2021-01-13 06:49] LABS: BUN Creatinine Ratio 38.1 (10-20); Bilirubin,Total 0.5 mg/dl (0.2-1); Calcium 8.2 mg/dl (8.5-10.1); Creatinine Clr Calc Pharmacy 68.5 ml/min; Est GFR (African American) 84.3 ml/min; Est GFR (Non-African American) 72.7 ml/min; Globulin 2.9 gm/dl (2.5-4.0); Total Protein 5.9 gm/dl (6.4-8.2)
--- NOTE | 2021-01-13 07:05 | Orthopedic Progress Note ---
Date of Service January 13, 2021 Assessment & Plan (1) History of revision of total replacement of left knee joint: POD #2 s/p Left TKA revision pt/ot dvt proph with JESE/SCD/ASA plan for d/c home with home health PT she seems to be doing much better this am, will await CXR, UA and medical wo rkup. reassess this afternoon, we discussed using home health at time of d/c and she is agreeble, will then set up OPPT at [facility] after she completes HHPT Admission and Anticipated Discharge Date Admission Date: January 11, 2021 Subjective POD #2 s/p Left TKA revision denies fever/chills denies CP/SOB Review of Systems Constitutional: no fever and no chills Respiratory: no cough Cardiovascular: no chest pain, no dyspnea and no orthopnea Gastrointestinal: no nausea and no vomiting Physical Exam Physical Exam: Vital Signs Temp 36.8 C 01/12/21 22:11 Pulse 72 01/12/21 22:11 Resp 20 01/12/21 22:11 BP 150/72 H 01/12/21 22:11 Pulse Ox 94 01/12/21 22:11 Intake & Output 01/12/21 01/13/21 01/13/21 18:59 06:59 18:59 Intake Total 914.334 / 1691.667 777.333 / 1691.667 Output Total 350 / 2275 1925 / 2275 Balance 564.334 / -583.333 -1147.667 / -583.3 33 Intake: IV 914.334 / 1691.667 777.333 / 1691.667 Sodium Chlorid e 0.9% 1000ML 1, 844.334 / 1621.667 777.333 / 1621.667 000 ml @ 80 ml s/hr IV .[id number] [facility] Rx#:[id number] cefTRIAXone SO DIUM 2,000 mg In 70 / 70 Dextrose 5% 50 ml @ 100 mls/hr IV Q24H [facility] Rx #:[id number] Output: Urine 350 / 1675 1325 / 1675 Urine Amount (Ca theter) 600 / 600 Straight 600 / 600 Other: # Unmeasured Voi ds 1 Constitutional: WD/WN, vitals as above no acute distress Musculoskeletal: Left knee: NVDI, calf SNT, negative eitan sign. DP palpable, able to wiggle toes/ankle movement without difficulty. AVELINO dressing clean dry and intact. expected post-operative bruising noted. Results & Data ([facility]) Vital Signs (Past 12 Hours) Vital Signs Temp Pulse Resp BP Pulse Ox 01/12/21 22:11 36.8 C 72 20 150/72 H 94
[2021-01-13] MEDS: FERROUS GLUCONATE 324 MG TAB PO SCH (07:59)
[2021-01-13] MEDS: CALCIUM 600MG + VIT D 400 IU TAB PO SCH (07:59)
[2021-01-13] MEDS: ASPIRIN 81 MG ECTAB PO SCH (07:59)
[2021-01-13] MEDS: MULTIVITAMIN TAB PO SCH (07:59)
[2021-01-13] MEDS: ASCORBIC ACID 500 MG TAB PO SCH (07:59)
[2021-01-13] MEDS: MAGNESIUM OXIDE 400 MG TAB PO SCH (08:00)
[2021-01-13] MEDS: PRAVASTATIN SOD 40 MG TAB PO SCH (08:00)
[2021-01-13] MEDS: DOCUSATE SODIUM 100 MG CAP PO SCH (08:00)
--- NOTE | 2021-01-13 08:24 | Hospitalist Progress Note ---
Date of Service January 13, 2021 Assessment & Plan (1) Confusion, postoperative: POD 2 s/p L TKA revision with Dr. Neumann PT/OT/pain management/DVT prophylaxis per primary service (ASA 81mg BID) --> developed confusion overnight 01/11-01/12 and ended up pulling out IV, Zavala and her surgical drain Of note, per anesthesia note yesterday afternoon, "The patient was brought to PACU with an oral airway. She was breathing on her own but requiring jaw thrust to maintain respirations. Her vitals remained stable with SpO2 in the high 90s. Her pupils were noted to be significantly miotic. The patient was given several doses of naloxone in PACU. She became more arousable and her pupils slightly dilated. The patient was under general anesthesia for several hours and had received hydromorphone and fentanyl in the OR. The PACU nurses were instructed to monitor the patient and not to give her any further narcotics. Dr. Suggs evaluated the patient with me and will take over her care. " Possible prior adverse rxn to anesthesia vs pain medications vs infection/inflammatory response -- Allergy to hydrocodone with hallucinations (she did also get a scopolamine patch pre-op and anticholinergic with anesthesia may also be contributing) She recalls looking down and seeing blood but did not remember events. Did get dose of oxycodone around 2am and this may be culprit but will also investigate other causes WBC elevated to 24k post-operative from 5.5k. Bicarb 20 H/h dropped from 14.3/11 -- acute blood loss anemia from surgery/above and dilutional from IVF which have since been discontinued CXR negative UA without bacteria but with leuk est/WBC --> given ROcephin and would dc with Keflex for another 2 days given symptoms and improvement of those symptoms. -- Cx pending AMmonia wnl CTAP without acute infection, chronic changes ECHO LV systolic function normal, EF 6-065%, no wma, Grade I diastolic. Mild , Mild MN, mod-severe TR ---> recommend f/u with Cardiology at d/c. RVSP elevated 30-40mmhG TSH wnl Hold HCTZ and spironolactone -- IVF ordered for MICHELLE and dehydration Avoid oxycodone -- utilize tramadol if needed but would try to get relief with Tylenol alone for now (2) History of revision of total replacement of left knee joint: pod 2 management per surgery (3) HTN (hypertension): BP slightly low -- recent addition of BP medication last year and followed by Dr Holman Held HCTZ, spironolactone, amlodipine but ok to resume in AM Cr now stable 0.79, no further IVF (4) Hyperlipidemia: continue statin (5) History of TIA (transient ischemic attack): Hx of, related to poorly controlled blood pressure -- on ASA on "as needed basis" and pravastatin 80mg daily ASA 81 -- on BID for DVT proph No focal deficits at this time (6) Diastolic dysfunction: follows locally w Dr Callahan last echo in October 2018 noting EF 60-65%, grade 1 diastolic dysfunction, Mild MR, mod TR --> mod-severe MR --> rec f/u with PCP/Cardiology at discharge hypovolemic as above posot-operatively -- euvolemic today (7) Incomplete RBBB: Hx of -- repeating EKG, trop. Trop negative. EKG sinus aftab (8) Hypothyroidism: Supposed history of such, but per most recent PCP note, currently not on medication and noted patient was told her thyroid function is ok -- did previously try medication however did not feel well with medication apparently and last TSH in May 2020 was within normal range Repeating TSH -- wnl but low nowmal 0.389 DVT Proph -- ASA 81mg BID Thank you for allowing hospitalist to participate int he care of Ms Muhammad. Hospitalist service will follow along. Please call with any urgent questions/concerns. Ok for d/c from medical standpoint Admission and Anticipated Discharge Date Admission Date: January 11, 2021 Subjective Patient evaluated this morning. Doing well. Much more alert/oriented. Discussed continuing with tylenol alone for control given increased issues last night with the tramadol. Pain controlled with tylenol. Less suprapubic discomfort. Less frequency Discussed Urine cx pending but given symptoms and improvement in WBC (which could also be in part from stress/surgery/anesthesia and post op issues w anesthesia). She is feels well and hopeful for d/c this afternoon. Review of Systems Review of Systems: All systems reviewed & are unremarkable except as noted in HPI & below Physical Exam 2 Constitutional: WD/WN, vitals as above cooperative and comfortable; no acute distress Eyes: + anicteric sclerae and PERRL ENMT: Ears: no hearing impairment Neck: trachea midline, no thyromegaly Respiratory: normal respiratory effort, lungs clear to auscultation Auscultation: + crackles (bibasilar (IMPROVED, faint)) Cardiovascular: Rate/Rhythm: regular rate and regular rhythm Heart Sounds: + murmur (ANGELA) Vessels: no JVD Extremities: + edema (post-op, expected); no calf tenderness Gastrointestinal (Abdomen): Inspection/Auscultation: abdomen normal to inspection and normal bowel sounds Percussion/Palpation: + abdomen tender (suprapubic) and abdomen soft; no guarding and abdomen not rigid Musculoskeletal: dressing to knee c/d/i NVI pulses palpable calves non-tender equal strength dorsiflexion/plantar flexion Skin: no rashes, warm and dry Neurologic: patellar DTR's 2+ bilat, sensation intact and PERRL, EOMI, accommodation nl, no face palsy, no dysarthria Psychiatric: Orientation: alert, oriented to person, oriented to place, oriented to time and cooperative Results & Data Results & Data ([facility]) Vital Signs (Past 12 Hours) Vital Signs Temp Pulse Pulse Resp BP Pulse Ox 01/13/21 07:59 36.7 C 58 L 18 138/78 95 01/12/21 22:11 36.8 C 72 20 150/72 H 94 Laboratory Results 01/13/21 01/13/21 01/12/21 Range/Units 05:25 05:25 14:08 WBC 15.18 H 23.74 H (4.8-10.8) K/uL RBC 3.10 L 3.41 L (4.2-5.4) M/uL Hgb 9.8 L 10.6 L (12.0-16.0) g/dL Hct 29.6 L 31.3 L (37-47) % MCV 95.5 91.8 (80-100) fL MCH 31.6 31.1 (25-34) pg MCHC 33.1 33.9 (32-36) g/dL RDW Std Deviation 47.4 H 44.7 (36.4-46.3) fL RDW Coeff of Ronald 13.7 13.4 (11.5-14.5) % Plt Count 212 222 (130-400) K/uL MPV 9.2 9.0 (7.4-10.4) fL Immature Gran % (Auto) 0.4 0.4 % Neut % (Auto) 84.4 88.7 % Lymph % (Auto) 7.8 3.1 % [place] % (Auto) 7.4 7.7 % Eos % (Auto) 0.0 0.0 % Baso % (Auto) 0.0 0.1 % Neut # (Auto) 12.82 H 21.06 H (1.4-6.5) K/uL Lymph # (Auto) 1.18 L 0.73 L (1.2-3.4) K/uL [place] # (Auto) 1.12 H 1.83 H (0.11-0.59) K/uL Eos # (Auto) 0.00 0.00 (0-0.5) K/uL Baso # (Auto) 0.00 0.02 (0-0.2) K/uL Immature Gran # (Auto) 0.06 H 0.10 H (0.00-0.02) K/uL Absolute Nucleated RBC 0.03 H (0-0) K/uL Nucleated RBC % (auto) 0.2 % Sodium 142 (136-145) mmol/L Potassium 4.0 (3.5-5.1) mmol/L Chloride 112 H (98-107) mmol/L Carbon Dioxide 24 (21-32) mmol/L Anion Gap 6.0 (3-11) BUN 30 H (7-18) mg/dl Creatinine 0.79 D (0.6-1.2) mg/dl Est Cr Clr Drug Dosing 68.5 ml/min Est GFR ( Amer) 84.3 ml/min Est GFR (Non-Af Amer) 72.7 ml/min BUN/Creatinine Ratio 38.1 H (10-20) Glucose 93 (70-99) mg/dl Calcium 8.2 L (8.5-10.1) mg/dl Total Bilirubin 0.5 (0.2-1) mg/dl AST 26 (15-37) U/L ALT 16 (12-78) U/L Alkaline Phosphatase 59 (45-117) U/L Ammonia (11-32) umol/L Troponin I (0-0.045) ng/ml Total Protein 5.9 L (6.4-8.2) gm/dl Albumin 3.0 L (3.4-5.0) gm/dl Globulin 2.9 (2.5-4.0) gm/dl Albumin/Globulin Ratio 1.0 (0.9-2) Lipase 56 L (73-393) U/L TSH (0.300-4.500) uIu/ml Urine Color Urine Appearance (Clear) Urine pH (4.5-7.5) Ur Specific [place] (1.000-1.030) Urine Protein (Negative) Urine Glucose (UA) (Negative) Urine Ketones (Negative) Urine Blood (Negative) Urine Nitrite (Negative) Urine Bilirubin (Negative) Urine Urobilinogen (Negative) Ur Leukocyte Esterase (Negative) Urine WBC (Auto) (0-5) /hpf Urine RBC (Auto) (0-4) /hpf U Hyaline Cast (Auto) (0-5) /lpf U Epithel Cells (Auto) (0-5) /lpf Urine Bacteria (Auto) (Negative) Crossmatch 01/12/21 01/12/21 01/12/21 Range/Units 13:15 11:20 11:10 WBC (4.8-10.8) K/uL RBC (4.2-5.4) M/uL Hgb (12.0-16.0) g/dL Hct (37-47) % MCV (80-100) fL MCH (25-34) pg MCHC (32-36) g/dL RDW Std Deviation (36.4-46.3) fL RDW Coeff of Ronald (11.5-14.5) % Plt Count (130-400) K/uL MPV (7.4-10.4) fL Immature Gran % (Auto) % Neut % (Auto) % Lymph % (Auto) % [place] % (Auto) % Eos % (Auto) % Baso % (Auto) % Neut # (Auto) (1.4-6.5) K/uL Lymph # (Auto) (1.2-3.4) K/uL [place] # (Auto) (0.11-0.59) K/uL Eos # (Auto) (0-0.5) K/uL Baso # (Auto) (0-0.2) K/uL Immature Gran # (Auto) (0.00-0.02) K/uL Absolute Nucleated RBC (0-0) K/uL Nucleated RBC % (auto) % Sodium (136-145) mmol/L Potassium (3.5-5.1) mmol/L Chloride (98-107) mmol/L Carbon Dioxide (21-32) mmol/L Anion Gap (3-11) BUN (7-18) mg/dl Creatinine (0.6-1.2) mg/dl Est Cr Clr Drug Dosing ml/min Est GFR ( Amer) ml/min Est GFR (Non-Af Amer) ml/min BUN/Creatinine Ratio (10-20) Glucose (70-99) mg/dl Calcium (8.5-10.1) mg/dl Total Bilirubin (0.2-1) mg/dl AST (15-37) U/L ALT (12-78) U/L Alkaline Phosphatase (45-117) U/L Ammonia 14.0 (11-32) umol/L Troponin I < 0.015 (0-0.045) ng/ml Total Protein (6.4-8.2) gm/dl Albumin (3.4-5.0) gm/dl Globulin (2.5-4.0) gm/dl Albumin/Globulin Ratio (0.9-2) Lipase (73-393) U/L TSH 0.389 (0.300-4.500) uIu/ml Urine Color Yellow Urine Appearance Clear (Clear) Urine pH 5.0 (4.5-7.5) Ur Specific [place] 1.016 (1.000-1.030) Urine Protein Negative (Negative) Urine Glucose (UA) Negative (Negative) Urine Ketones Negative (Negative) Urine Blood 3+ H (Negative) Urine Nitrite Negative (Negative) Urine Bilirubin Negative (Negative) Urine Urobilinogen Negative (Negative) Ur Leukocyte Esterase 2+ H (Negative) Urine WBC (Auto) 10-30 H (0-5) /hpf Urine RBC (Auto) >30 H (0-4) /hpf U Hyaline Cast (Auto) 1-5 (0-5) /lpf U Epithel Cells (Auto) >30 H (0-5) /lpf Urine Bacteria (Auto) Negative (Negative) Crossmatch 01/11/21 Range/Units 06:51 WBC (4.8-10.8) K/uL RBC (4.2-5.4) M/uL Hgb (12.0-16.0) g/dL Hct (37-47) % MCV (80-100) fL MCH (25-34) pg MCHC (32-36) g/dL RDW Std Deviation (36.4-46.3) fL RDW Coeff of Ronald (11.5-14.5) % Plt Count (130-400) K/uL MPV (7.4-10.4) fL Immature Gran % (Auto) % Neut % (Auto) % Lymph % (Auto) % [place] % (Auto) % Eos % (Auto) % Baso % (Auto) % Neut # (Auto) (1.4-6.5) K/uL Lymph # (Auto) (1.2-3.4) K/uL [place] # (Auto) (0.11-0.59) K/uL Eos # (Auto) (0-0.5) K/uL Baso # (Auto) (0-0.2) K/uL Immature Gran # (Auto) (0.00-0.02) K/uL Absolute Nucleated RBC (0-0) K/uL Nucleated RBC % (auto) % Sodium (136-145) mmol/L Potassium (3.5-5.1) mmol/L Chloride (98-107) mmol/L Carbon Dioxide (21-32) mmol/L Anion Gap (3-11) BUN (7-18) mg/dl Creatinine (0.6-1.2) mg/dl Est Cr Clr Drug Dosing ml/min Est GFR ( Amer) ml/min Est GFR (Non-Af Amer) ml/min BUN/Creatinine Ratio (10-20) Glucose (70-99) mg/dl Calcium (8.5-10.1) mg/dl Total Bilirubin (0.2-1) mg/dl AST (15-37) U/L ALT (12-78) U/L Alkaline Phosphatase (45-117) U/L Ammonia (11-32) umol/L Troponin I (0-0.045) ng/ml Total Protein (6.4-8.2) gm/dl Albumin (3.4-5.0) gm/dl Globulin (2.5-4.0) gm/dl Albumin/Globulin Ratio (0.9-2) Lipase (73-393) U/L TSH (0.300-4.500) uIu/ml Urine Color Urine Appearance (Clear) Urine pH (4.5-7.5) Ur Specific [place] (1.000-1.030) Urine Protein (Negative) Urine Glucose (UA) (Negative) Urine Ketones (Negative) Urine Blood (Negative) Urine Nitrite (Negative) Urine Bilirubin (Negative) Urine Urobilinogen (Negative) Ur Leukocyte Esterase (Negative) Urine WBC (Auto) (0-5) /hpf Urine RBC (Auto) (0-4) /hpf U Hyaline Cast (Auto) (0-5) /lpf U Epithel Cells (Auto) (0-5) /lpf Urine Bacteria (Auto) (Negative) Crossmatch See Detail Diagnostic Findings Chest X-Ray 01/12/21 10:04 XR chest 1V portable CLINICAL HISTORY: elevated WBC COMPARISON STUDY: Chest radiograph December 12, 2020. FINDINGS: Lung volumes are diminished. There is S-shaped scoliosis of the thoracolumbar spine. No pneumothorax or pleural effusion is noted. Mild enlargement of the cardiac silhouette is accentuated on this hypoventilatory study. There is minimal left basilar opacity. This favors atelectasis. There may be minimal right basilar opacity. IMPRESSION: Low lung volumes with minimal bibasilar opacities that favor atelectasis. ACT 112: Negative or not required by law. Electronically signed by: Sincere Mccoy M.D. 01/12/2021 10:36 AM Venous Doppler Study 01/12/21 13:30 LEFT LOWER EXTREMITY VENOUS DOPPLER CLINICAL HISTORY: Left lower extremity pain and swelling. COMPARISON STUDY: No previous studies for comparison. TECHNIQUE: Sonography of the deep venous system of the left lower extremity was performed. Compression and augmentation were evaluated. FINDINGS: The left common femoral, superficial femoral and popliteal veins were compressible. Augmentation was normal. Flow was shown within the deep calf vessels. IMPRESSION: No evidence of deep venous thrombus within the left lower extremity. ACT 112: Negative or not required by law. Electronically signed by: Sincere Mccoy M.D. 01/12/2021 1:54 PM Renal Ultrasound 01/12/21 16:38 ULTRASOUND KIDNEYS AND BLADDER CLINICAL HISTORY: Hematuria. Low back pain. COMPARISON STUDY: Renal ultrasound dated 05/19/2020. TECHNIQUE: Real-time, grayscale, and color flow sonography of the kidneys and bladder is performed. Images are reviewed in the transverse and longitudinal planes. FINDINGS: Kidneys: The kidneys demonstrate cortical atrophy. Echotexture is normal. The right kidney measures 13.1 x 5.1 x 5.7 cm and the left kidney measures 11.8 x 5.9 x 5.5 cm. There is no hydronephrosis. No shadowing renal calculi are identified. A 1.2 cm cyst is incidentally noted on the left. There is no sonographic evidence of contour deforming renal mass lesion. No perinephric fluid is identified. Bladder: The bladder is normal in appearance. Bilateral ureteral jets were seen. Upper abdomen: Survey images of the liver show evidence of steatosis. IMPRESSION: 1. The kidneys demonstrate cortical atrophy and are without hydronephrosis. 2. No shadowing renal calculi are identified. 3. The bladder is normal as imaged. ACT 112: Negative or not required by law. Electronically signed by: Aj Sethi M.D. 01/12/2021 5:54 PM PG Care Time/CCT Total # of Minutes Spent Total Time Spent with Patient: Total time spent is greater than 50% in coordination of care (as documented) at patient's floor/unit and/or counseling patient: Coding Level of Care Code 46570 Subseq Obs Care Lvl 3 Diagnoses Confusion, postoperative R41.0 History of revision of total replacement of left knee joint Z96.652 HTN (hypertension) I10 Hyperlipidemia E78.5 History of TIA (transient ischemic attack) Z86.73 Diastolic dysfunction I51.89 Incomplete RBBB I45.10 Hypothyroidism E03.9
[2021-01-13] MEDS ORDERED: PANTOprazole 40 MG TAB PO SCH (09:00)
--- NOTE | 2021-01-13 09:28 | XRay Report ---
SINGLE VIEW CHEST CLINICAL HISTORY: Leukocytosis. FINDINGS: An AP, portable, upright chest radiograph is compared to study dated 01/12/2021. The heart is enlarged noting atherosclerotic calcification of the thoracic aorta. The pulmonary vasculature is no ncongested. There is improved aeration as compared to yesterday. Mild bibasilar atelectasis is noted. No airspace consolidation or large pleural effusion is identified. No pneumothorax is seen. The skel etal structures are osteopenic. The bony thorax is grossly intact. IMPRESSION: Cardiomegaly with no active disease in the chest. ACT 112: Negative or not required by law. Electronically signed by: Aj Sethi M.D. 01/13/2021 9:27 AM
--- NOTE | 2021-01-13 10:26 | XCELERA ---
[id number]
[2021-01-13] MEDS ORDERED: OPTIRAY 320 150ml IV ONE (10:50)
--- NOTE | 2021-01-13 11:45 | CT Scan Report ---
CT SCAN OF THE ABDOMEN AND PELVIS WITH IV CONTRAST CLINICAL HISTORY: Generalized abdominal pain. Leukocytosis. Change in mental status. COMPARISON STUDY: Renal ultrasound dated 01/12/2021. TECHNIQUE: Following the IV administration of 90 cc of Optiray 320, CT scan of the abdomen and pelvi s is performed from the lung bases to the proximal femora. Images are reviewed in the axial, sagittal , and coronal planes. IV contrast was administered without complication. Oral contrast was utilized. A dose lowering technique was utilized adhering to the principles of ALARA. CT DOSE: 911.65 mGycm FINDINGS: Lung bases: The heart is enlarged and without pericardial effusion. There are trace pleural effusions with dependent atelectasis. A small hiatal hernia is noted. Liver: The contrast-enhanced liver is normal in size, contour, and attenuation. There is no intrahepa tic biliary ductal dilatation. The hepatic veins and portal veins are patent. Gallbladder: Unremarkable. Spleen: Normal in size and attenuation. Pancreas: Moderately atrophic and grossly unremarkable. Adrenal glands: Unremarkable. Kidneys: The contrast enhanced kidneys demonstrate mild cortical atrophy and are without hydronephros is. The kidneys enhance symmetrically. Small renal cysts measure up to 12 mm. Additional subcentimete r cortical hypodensities also likely represent cysts but are too small for definitive catheterization . Peripelvic cysts are noted on the left. Abdominal vasculature: There is advanced atherosclerotic calcification and ectasia of the abdominal a lonnie. Bowel: There is mild to moderate colonic fecal retention. No bowel obstruction is seen. Enteric contr ast reaches the left colon. A small duodenal diverticulum is incidentally noted. The appendix is not identified and reported surgically absent. Peritoneum: Trace free fluid is seen in the pelvis. No intraperitoneal free air is identified. Lymphadenopathy: None. Pelvic viscera: The bladder is distended but otherwise normal in appearance. The uterus is surgically absent. No adnexal lesion is seen. Skeletal structures: The skeletal structures are osteopenic. There is moderate to advanced lumbosacra l spondylosis as well as mild scoliosis. Postlaminectomy change is noted in the lower thoracic spine. No lytic or blastic lesions are seen. IMPRESSION: 1. Trace nonspecific free fluid is seen in the pelvis and may be on a reactive basis. 2. No additional abnormality is identified in the abdomen or pelvis. 3. Cardiomegaly and trace pleural effusions 4. Additional chronic findings as above. ACT 112: Negative or not required by law. Electronically signed by: Aj Sethi M.D. 01/13/2021 11:44 AM
--- NOTE | 2021-01-26 12:18 | Discharge Summary ---
Date of Service January 26, 2021 Admission HPI Per Admitting Provider Chief Complaint: left knee pain Primary Care Provider: Mey Gruber DO Irish is a pleasant 75 year old female who complains of left knee pain, presents for pre op evaluation prior to a left total knee revision arthroplasty at [facility] by Dr Neumann. she originally underwent left TKA by Dr Dangelo on 05/12/2001 and did well for the past several years. she denies any injuries or trauma, denies fever or chills, has intermittent swelling with activities. she also admits to instability to her knee. she had a bone scan performed on 03/10/20 which showed loosening of her left tka. Admission Exam Per Admitting Provider Physical Exam: HT: 5ft 7in WT: 84.9kg Constitutional: WD/WN, vitals as above no acute distress Respiratory: normal respiratory effort, lungs clear to auscultation no respiratory distress, no labored breathing and does not use accessory muscles Cardiovascular: RRR, no murmur, no edema Gastrointestinal (Abdomen): normal bowel sounds, soft, nontender, no hepatosplenomegaly Musculoskeletal: Left Knee Exam Ambulates with a limp, overall neutral alignment, there is no atrophy warmth or ecchymosis noted, mild effusion, maximum tenderness medial aspect of her tibia. negative patellar Apprehension , no crepitation with motion, valgus stress Negative, Varus stress Negative, no Extensor lag, Pain with Active range of motion, also passive painful ROM, Range of motion 0/3/115. No pain with active/passive ROM of ankle. Lower Extremity Strength normal. Lower Extremity Neuro-vascular is normal Principal Diagnosis Aseptic loosening left TKA Discharge Exam Subjective POD #2 s/p Left TKA revision denies fever/chills denies CP/SOB Review of Systems Constitutional: no fever and no chills Respiratory: no cough Cardiovascular: no chest pain, no dyspnea and no orthopnea Gastrointestinal: no nausea and no vomiting Physical Exam Physical Exam: Vital Signs Temp 36.8 C 01/12/21 22:11 Pulse 72 01/12/21 22:11 Resp 20 01/12/21 22:11 BP 150/72 H 01/12/21 22:11 Pulse Ox 94 01/12/21 22:11 Intake & Output 01/12/21 01/13/21 01/13/21 18:59 06:59 18:59 Intake Total 914.334 / 1691.667 777.333 / 1691.667 Output Total 350 / 2275 1925 / 2275 Balance 564.334 / -583.333 -1147.667 / -583.3 33 Intake: IV 914.334 / 1691.667 777.333 / 1691.667 Sodium Chlorid e 0.9% 1000ML 1, 844.334 / 1621.667 777.333 / 1621.667 000 ml @ 80 ml s/hr IV .[id number] TRICIA Rx#:[id number] cefTRIAXone SO DIUM 2,000 mg In 70 / 70 Dextrose 5% 50 ml @ 100 mls/hr IV Q24H TRICIA Rx #:[id number] Output: Urine 350 / 1675 1325 / 1675 Urine Amount (Ca theter) 600 / 600 Straight 600 / 600 Other: # Unmeasured Voi ds 1 Constitutional: WD/WN, vitals as above no acute distress Musculoskeletal: Left knee: NVDI, calf SNT, negative eitan sign. DP palpable, able to wiggle toes/ankle movement without difficulty. AVELINO dressing clean dry and intact. expected post-operative bruising noted. Discharge Data Allergies Allergy/AdvReac Type Severity Reaction Status Date / Time cyclobenzaprine AdvReac Severe Hallucinati Verified 01/11/21 06:47 ons gabapentin AdvReac Severe Hallucinati Verified 01/11/21 06:47 ons hydrocodone AdvReac Severe Hallucinati Verified 01/11/21 06:47 ons amitriptyline AdvReac Hallucinati Verified 01/11/21 08:14 ng perphenazine AdvReac Hallucinati Verified 01/11/21 08:14 ng Consultations 01/12/21 09:55 Consult Medical [Consult Internal Medicine] Routine Procedures Performed Operation Date: 01/11/21 08:40 Actual Procedures p Left Total Knee Revision(Left) - Yosvany Neumann DO Ordered Studies 01/11/21 05:00 US - OR guided needle placemen Routine 01/12/21 13:30 US venous doppler LE LT Routine 01/12/21 16:38 US renal/blad retro comp Routine 01/13/21 09:00 CT abd pelvis oral and IV con Routine Hospital Course (1) History of revision of total replacement of left knee joint: Patient was admitted on the above-noted date and had the above-noted procedure performed.Postoperatively, the patient was breathing on her own but was requiring jaw thrust to maintain respirations. Vital signs remained stable and SPO2 in the high 90s. Pupils were myotic. She was given several doses of naloxone in PACU. She became more arousable she was monitored further by the PACU team and was not given any further narcotics. She continued to remain stable and was then eventually taken to her regular [facility] floor. On her first postoperative day, she was without complaints. She denies shortness of breath, chest pain, lightheadedness. Vital signs are stable and she was afebrile. Hemoglobin was 11.0 and WBC was 24. Neurovascular is intact, calves are soft nontender, and dorsalis pedis pulse was palpable. Dressings were clean dry and intact. Patient was started on her PT and OT protocols and continued on DVT prophylaxis and pain management. A medicine consult was placed for about any physician group hospitalist service. Patient was seen by Ana Drake PA-C and plans were made for work-up for WBC elevation. Hospitalist service continue to follow patient till discharge. By the patient's second postoperative day, she continued to feel well and denied fever, shortness of breath, chest pain, lightheadedness. Vital signs were remaining stable. Avelino dressing was clean dry and intact. Calves are soft and nontender. Neurovascular was intact. Toes were mobile. Medical work-up showed a negative chest x-ray and a UA without bacteria. Rocephin had been given and plans were for Keflex orally for the next several days. Urine culture was eventually noted to be negative. CTAP without acute infection, chronic changes and echo showing LV systolic function normal, mild , mild OK, mild to severe TR with cardiology recommendations for follow- up. He was otherwise remaining stable and progressing well with her physical therapy. Plans were for continuing Tylenol alone for pain control and trying to stay away from any type of narcotic due to her immediate postoperative reaction to the narcotics post surgery. She was thusly discharged home with home health services. Total Time Total Time Spent Total Time Spent (In Minutes): 10 Discharge Plan Discharge Items Patient Disposition: Home - Home Health Services Reason For Visit: Left Knee Loose Hardware Discharge Diagnosis: left total knee revision arthroplasty Condition on Discharge: Good Activity: Per Instructions section Lifting: Wait until after follow-up appointment Weightbearing Comment: WBAT with walker Non-emergency contact: Surgeon Call non-emergency contact if: you have any medication questions, your pain is concerning for you, your temperature is above 101, your wound has increased redness, your wound has increased drainage and your wound pain has increased Follow-up/Referrals: Mey Gruber DO [Primary Care Provider] - Diet: Regular Addtl Attending Provider Instructions: ACTIVITY RECOMMENDATIONS: SELF CARE INSTRUCTIONS AFTER TOTAL KNEE REPLACEMENT A. You may need to continue a physical therapy program after discharge from the hospital. There are several options available to you. Your doctor will assist you in selecting the best one for you. 1. An out-patient facility 2 to 3 times a week for therapy or home therapy. 2. Continue working on all exercises taught to you in the hospital. Your goals should be to increase bending of your knee to 90 degrees and beyond and to fully straighten your knee. B. You may progress at your own pace from walking with a walker or crutches to a cane; then to no assistive devices. C. Make walking a part of your daily routine. Be up as much as comfortable with rest periods throughout the day. Rest with leg elevation is very important. Use the ice wrap frequently for the first 3-4 weeks. D. There are no restrictions on activities. You may ride in a car, shop, participate in park guard and all social activities. E. Wear the long elastic stockings (JESE hose) 20 hours a day for 2 weeks after surgery. They can be removed several times a day for laundering and for a bath. F. You may shower, no tub baths until cleared by your doctor. SPECIAL CARE INSTRUCTIONS: VERY IMPORTANT TO READ AND REVIEW A. There are a few signs you need to watch for after you are home. Call [facility] if you notice any of the followin. Increased severe knee pain. Some pain is expected especially when you exercise. 2. Increased swelling in your leg or knee; pain or swelling of the calf muscle in either lower leg. 3. Any fluid drainage from the incision. 4. Shortness of breath or chest pain. B. Please call [facility] at if you have any concerns or questions about your operation or recovery. The doctor or his nurse will return your call promptly. C. You must take antibiotics before dental work, bladder, bowel or other surgery. Your doctor will provide you with a permanent care to carry describing this precaution. IMPORTANT: * REMEMBER TO TAKE ASPIRIN, 81 MG, TWICE DAILY FOR 4 WEEKS UNLESS OTHERWISE DIRECTED. THIS IS YOUR BLOOD THINNER. * HIGH RISK PATIENTS MAY BE PRESCRIBED A STRONGER BLOOD THINNER. THIS WILL BE PROVIDED AT DISCHARGE. * CALL IF INCREASED PAIN, REDNESS, DRAINAGE OR FEVER GREATER THAT 101. * WEAR JESE HOSE 20 HOURS PER DAY FOR 2 WEEKS. * AVELINO Dressing- This is a large suction dressing covering your incision. This will help pull any excess drainage from the wound and allow your incision to heal properly. You may shower with this if you can keep the unit outside of the shower. If any bleeding or leakage is noted please call your doctor's office. This will remain on your incision for 7 days and then should be removed. This can be done yourself or by the home nursing staff if applicable. The entire unit is disposable once removed. Once removed, keep incision clean and dry. If redness or drainage is noted, please call your surgeon. IF INCISION IS LEAKING THROUGH DRESSING, CALL THE OFFICE . FOLLOW UP VISIT: If appointment is not already scheduled: Please call [facility] to make a follow-up appointment for 2 weeks after your surgery at . Addtl Stitcher Hand Provider Instructions: You will continue keflex 500mg FOUR times daily for another two days to treat possible UTI. Urine culture is pending at time of discharge, however UA did not show bacteria but you did get a dose of antibiotics before this sample was taken. If you continue to have urinary symptoms please follow up with PCP and Urology to further evaluate. Pending Studies at Discharge: No Stand-Alone Forms: My [employer], Smoking Cessation Medications and DC Order Prescriptions: New acetaminophen 500 mg Tablet 1,000 mg PO Q8 21 Days Qty: 126 RF: 0 aspirin 81 mg Tablet,Delayed Release (Dr/Ec) 81 mg PO BID 30 Days Qty: 60 RF: 0 celecoxib [Celebrex] 200 mg capsule 200 mg PO BID Qty: 30 RF: 0 Continued spironolactone 25 mg tablet 25 mg PO BID Qty: 180 RF: 1 multivitamin Tablet 1 tab PO QAM RF: 0 amlodipine 5 mg tablet 5 mg PO BID Qty: 180 RF: 2 hydrochlorothiazide 25 mg tablet 25 mg PO BID Qty: 180 RF: 1 pravastatin 80 mg tablet 80 mg PO DAILY Qty: 90 RF: 3 solifenacin [Vesicare] 5 mg tablet 5 mg PO DAILY Qty: 30 RF: 2 ascorbic acid (vitamin C) 500 mg tablet 500 mg PO QAM RF: 0 calcium carbonate-vitamin D3 600 mg(1,500mg) -200 unit Tablet 1 tab PO QAM RF: 0 magnesium 250 mg Tablet 250 mg PO QAM RF: 0 vitamin E 400 unit Capsule 400 unit PO BID RF: 0 lysine 1,000 mg tablet 1,000 mg PO QAM RF: 0 Discontinued evening primrose oil 500 mg capsule 1,000 mg PO QAM RF: 0 glucosamine-chondroitin 900 mg tablet See Rx Instructions PO DAILY Qty: 90 RF: 0 flaxseed oil 1,000 mg capsule 250 mg PO QAM RF: 0 Rbbh-Sdus-Zxuc(vit A,C-biotin) 2,500 unit-100 mg-2,500 mcg Capsule 1 cap PO QAM RF: 0 biotin 5,000 mcg tablet, sublingual 5,000 mcg SL QAM RF: 0 Discharge Orders: Discharge Order (Routine); Ordered 01/13/21 Ordered By: Casa Farley Admission Data Admit Date/Time: 01/11/21 13:55 Attending Provider: Yosvany Neumann Admit Provider: Yosvany Neumann Primary Care Provider: Mey Gruber Other Providers: Yosvany Phillips Other Interventions: Discharge Summary Assessment (RN) Last Done: 01/13/21 12:04
--- NOTE | 2021-01-29 10:41 | Coding Query ---
CODING QUERY To promote full compliance with coding requirements relating to patient care, provider participation is requested in all cases of center aisle cashier uncertainty. Please assist us with the question(s) below: Coding Question(s): The Operative Report documents, "the final components were then subsequent brought on the back table the tourniquet was reapplied after 20 minutes of downtime the tourniquet being reinflated the wound was irrigated with copious muscle sterile saline solution the standard joint mix was placed in the posterior capsule and periosteal tissue subsequently the wound having been thoroughly irrigated the tibia followed by the femur followed by the patellar components were also uncemented to think of excellent range of motion with quite excellent stability excess cement was removed". It is not clear if the final components were Uncemented or Cemented. Please specify below. ( x ) the final components were Cemented ( ) the final components were Uncemented ( ) Other: Please Specify Physician's Response(s): Thank you Amairani Dennis Principal Diagnosis: "that condition established after study, to be chiefly responsible for occasioning the admission of the patient to the hospital for care." Co-Existing Principal Diagnosis: "when two or more diagnoses equally meet the criteria for principal diagnosis as determined by the circumstances of admission, diagnostic work up, and/or therapy provided, and the Alphabetic Index, Tabular List, or another coding guideline does not provide sequencing direction, any one of the diagnoses may be sequenced first." "When the physician has documented what appears to be a current diagnosis in the body of the record, but has not included the diagnosis in the final diagnostic statement, the physician should be asked whether the diagnosis should be added." ([facility] 2 QTR90. p3-4) REKHA
--- NOTE | 2021-01-29 11:03 | Coding Query ---
PRESENT ON ADMISSION QUERY To promote full compliance with coding requirements relating to pateint care, physician participation is requested in all cases of information coder uncertainty. Please assist us with the question(s) below: Please place an X within the parenthesis (x). The following diagnosis listed in this patient's medical record require physician assistance to determine if they were present on admission (POA) or not. Please advise for each diagnosis whether it was present on admission, not present on admission, or if it was clinically undetermined. 1. Possible UTI (documented on Discharge Summary under Addl English Professor Provider Instructions) ( ) Present On Admission (x) Not Present On Admission ( ) Clinically Undetermined Thank you Amairani Dennis *Definition of the present on admission (POA)-Present on admission is defined as present at the time the order for inpatient admission occurs. Conditions that develop during an outpatient encounter prior to a written order for inpatient admission (including emergency department, observation, or outpatient surgery) are considered present on admission. MTDD
--- NOTE | 2021-01-29 11:06 | Coding Query ---
CODING QUERY To promote full compliance with coding requirements relating to patient care, provider participation is requested in all cases of cognos architect uncertainty. Please assist us with the question(s) below: Please clarify the meaning of MICHELLE as documented on the 01/12 Consultation and 01/13 Progress Note. MICHELLE is not a valid abbreviation. Thank you. ( xx ) Acute Kidney Injury ( ) Acute Kidney Insufficiency ( ) Other (Specify): Principal Diagnosis: "that condition established after study, to be chiefly responsible for occasioning the admission of the patient to the hospital for care." Co-Existing Principal Diagnosis: "when two or more diagnoses equally meet the criteria for principal diagnosis as determined by the circumstances of admission, diagnostic work up, and/or therapy provided, and the Alphabetic Index, Tabular List, or another coding guideline does not provide sequencing direction, any one of the diagnoses may be sequenced first." "When the physician has documented what appears to be a current diagnosis in the body of the record, but has not included the diagnosis in the final diagnostic statement, the physician should be asked whether the diagnosis should be added." ([facility]oding [facility] 2 QTR90. p3-4) REKHA
== END 2021-01-13 13:09 | disposition home health service (06) | DRG 467 ==
LOC: ASU 06:25 → 3E 06:25 → OBSVTOIN 13:55

== ENCOUNTER 2021-03-04 11:32 | Observation (INO) ==
[2021-03-04] MEDS ORDERED: SODIUM CHLORIDE 0.9% 500 ML IV STA (11:48)
[2021-03-04] MEDS ORDERED: SODIUM CHLORIDE 0.9% 1000ML 500 ML IV ONE (11:55)
[2021-03-04 12:06] LABS: Basophils # (auto) 0.03 K/uL (0-0.2); Basophils % (auto) 0.4 %; Eosinophils # (auto) 0.12 K/uL (0-0.5); Eosinophils % (auto) 1.4 %; Hematocrit (blood only) 38.1 % (37-47); Immature Granulocytes # (auto) 0.01 K/uL (0.00-0.02); Immature Granulocytes % (auto) 0.1 %; Lymphocytes # (auto) 1.91 K/uL (1.2-3.4); Lymphocytes % (auto) 22.7 %; Mean Corpuscular Hemoglobin 31.1 pg (25-34); Mean Corpuscular Hgb Conc 34.1 g/dL (32-36); Mean Corpuscular Volume 91.1 fL (80-100); Mean Platelet Volume 9.1 fL (7.4-10.4); Monocytes # (auto) 0.55 K/uL (0.11-0.59); Monocytes % (auto) 6.5 %; Neutrophils # (auto) 5.79 K/uL (1.4-6.5); Neutrophils % (auto) 68.9 %; Platelet Count 259 K/uL (130-400); RDW Coefficient of Variation 13.2 % (11.5-14.5); RDW Standard Deviation 44.3 fL (36.4-46.3); Red Blood Count 4.18 M/uL (4.2-5.4); White Blood Count 8.41 K/uL (4.8-10.8)
--- NOTE | 2021-03-04 12:16 | XRay Report ---
XR chest 1V portable CLINICAL HISTORY: abnormal lbs COMPARISON STUDY: Chest radiograph January 13, 2021. FINDINGS: Lung volumes are normal. Lungs are clear. There is no pneumothorax or pleural effusion. Car diac size is stable. Mediastinal contours are normal. There is no evidence for pulmonary edema. Patie nt is mildly rotated. Scoliosis is again noted. IMPRESSION: No acute cardiopulmonary findings. ACT 112: Negative or not required by law. Electronically signed by: Sincere Mccoy M.D. 03/04/2021 12:15 PM
[2021-03-04 12:18] LABS: Partial Thromboplastin Ratio 1.1; Partial Thromboplastin Time 29.9 Seconds (21.0-31.0); Prothrombin Time 10.5 Seconds (9.0-12.0)
[2021-03-04 12:24] LABS: Alanine Aminotransferase 22 U/L (12-78); Albumin Level 4.4 gm/dl (3.4-5.0); Aspartate Aminotransferase 22 U/L (15-37); BUN Creatinine Ratio 22.4 (10-20); Blood Urea Nitrogen 69 mg/dl (7-18); Calcium 9.9 mg/dl (8.5-10.1); Carbon Dioxide 20 mmol/L (21-32); Chloride 106 mmol/L (98-107); Creatinine Clr Calc Pharmacy 17.3 ml/min; Est GFR (African American) 16.3 ml/min; Est GFR (Non-African American) 14.1 ml/min; Glucose 96 mg/dl (70-99); Lipase 200 U/L (73-393); Potassium 4.7 mmol/L (3.5-5.1); Sodium 136 mmol/L (136-145)
[2021-03-04 12:29] LABS: Albumin Globulin Ratio 1.2 (0.9-2); Alkaline Phosphatase 105 U/L (45-117); Bilirubin,Total 0.3 mg/dl (0.2-1); Globulin 3.8 gm/dl (2.5-4.0); Total Protein 8.2 gm/dl (6.4-8.2); Troponin I < 0.015 ng/ml (0-0.045)
--- NOTE | 2021-03-04 12:46 | Ultrasound Report ---
BILATERAL LOWER EXTREMITY VENOUS DOPPLER CLINICAL HISTORY: swelling COMPARISON STUDY: Left lower extremity venous Doppler ultrasound January 12, 2021. TECHNIQUE: Sonography of the deep venous system of the bilateral lower extremities was performed. Co mpression and augmentation were evaluated. FINDINGS: The bilateral common femoral, superficial femoral and popliteal veins were compressible. A ugmentation was normal. Flow was shown within the deep calf vessels. IMPRESSION: No evidence of deep venous thrombus within the bilateral lower extremities. ACT 112: Negative or not required by law. Electronically signed by: Sincere Mccoy M.D. 03/04/2021 12:45 PM
[2021-03-04 12:51] LABS: Appearance Urine Clear (Clear); Bacteria Urine Automated Negative (Negative); Bilirubin Urine Negative (Negative); Blood Urine Trace (Negative); Color Urine Yellow; Epithelial Cell Urine Auto >30 /lpf (0-5); Glucose Urine UA Negative (Negative); Ketones Urine Negative (Negative); Leukocyte Esterase Urine Trace (Negative); Nitrite Urine Negative (Negative); Protein Urine 1+ (Negative); RBC Urine Automated 0-4 /hpf (0-4); Specific Gravity Urine 1.013 (1.000-1.030); Urobilinogen Urine Negative (Negative)
--- NOTE | 2021-03-04 12:52 | Emergency Department Note ---
Impression & Plan Acute kidney injury, Edema, Exertional shortness of breath ED Provider Note NAME: OMI MEZA AGE: 75 SEX: F : 1945 ARRIVES VIA: Walk-In INFORMANT: Patient, ED PROVIDER(S): Jim Saucedo DO CHIEF COMPLAINT: Edema HPI: The patient is a 75-year-old female who presented to the emergency department with left leg swelling. The patient has a history of recent knee surgery. The patient states that she is also had other symptoms such as leg pain difficulty breathing and generalized weakness. She went to see her family doctor and had outpatient laboratory studies done. She was found to have an elevation in her creatinine as well as an elevated D-dimer. She was sent to the emergency department for further evaluation as well as possible admission. The patient denies having any dysuria or frequency. She denies having any flank pain or abdominal pain. She denies having any chest pain. She has had no recent trauma. She did note that she has had decreased urine output but did urinate prior to coming to the emergency department. The patient states her symptoms are moderate and worsened with exertion. ROS: See above HPI for pertinent positives & negatives. A total of 10 systems reviewed and were otherwise negative. PAST MEDICAL HISTORY: See Below PAST SURGICAL HISTORY: See Below FAMILY HISTORY: See Below SOCIAL HISTORY: See Below HOME MEDICATIONS: See Below ALLERGIES: See Below VITALS: See Below PHYSICAL EXAMINATION: GENERAL: Patient is awake alert in no acute distress patient is resting comfortably and showing no signs of anxiety EYES: The conjunctivae are clear. The pupils are round and reactive. EARS, NOSE, MOUTH AND THROAT: The nose is without any evidence of any deformity. Mucous membranes are moist. Tongue is midline. NECK: The neck is nontender and supple. RESPIRATORY: Normal respiratory effort is noted there is no evidence of wheezing rhonchi or rales CARDIOVASCULAR: Regular rate and rhythm noted there no murmurs rubs or gallops normal S1 normal S2. GASTROINTESTINAL: The abdomen is soft. Abdomen is nontender. MUSCULOSKELETAL/EXTREMITIES: Postoperative site on the left knee is well-healed. There is a slight effusion in the left knee but there is no warmth or erythema appreciated over the joint. SKIN: There is no obvious evidence of any rash. There are no petechiae, pallor or cyanosis noted. NEUROLOGIC: Patient is awake alert and oriented x3. MEDICAL DECISION MAKING: The patient is a 75-year-old female who presented to the emergency department for an evaluation of shortness of breath dyspnea exertion and lower extremity swelling. The patient had a previous DVT in the past. She went to see her family doctor for the symptoms and had laboratory studies drawn. She was sent to the emergency department because she had an elevated D-dimer as well as signs of acute kidney injury. She was making urine. She was treated with IV fluids in the emergency department. I discussed the patient's laboratory and radiographic studies with her. There was no signs of DVT on Doppler the lower extremities. The patient is not tachycardic or significantly hypoxic. I would defer pulmonary embolism work-up to the admitting team. The [facility] hospitalist was notified about the patient. They will evaluate the patient in the emergency department. Triage Nursing notes reviewed. Prior medical records reviewed Vital Signs: reviewed and remarkable for elevated blood pressure. Differential diagnosis: Infection, dehydration, metabolic abnormality, hypo/hyperglycemia, electrolyte disturbance, anemia, hypoxia, cardiac sources, intracerebral event, toxicologic, neurologic, as well as other pathologies. ER treatment provided: See below Diagnostics interpreted by me: ECG: EKG was obtained in the emergency department. My interpretation is normal sinus rhythm at 62 bpm. Nonspecific T wave abnormalities were noted in the anterior leads. LVH was noted by voltage criteria. This was compared to a tracing from January 122020. No significant changes were noted. Cardiac Monitoring: An order was placed for continuous cardiac monitoring. The monitor shows a rate of 62 bpm sinus with rhythm. Laboratory studies: As stated above and show below. Imaging studies: See below Consultation(s): Dr. Marie was notified about the patient in the emergency department. Past Med/Surg History Medical History Alopecia Arthritis Claustrophobia Deep vein thrombosis post-op knee scope (2000) Degenerative disc disease GERD (gastroesophageal reflux disease) History of stomach ulcers History of TIA (transient ischemic attack) 30+ years ago HTN (hypertension) Hyperlipidemia Irregular heartbeat PAC/PVCs- follows with [facility] (Dr. Callahan) Urinary urgency + frequency Surgical History H/O oral surgery Gum surgery H/O total hysterectomy History of arthroscopy Left knee History of back surgery x2, removal of Schwannomas (1997 + 1998) History of colonoscopy History of dilatation and curettage History of ear surgery "Water removed" from ear History of esophagogastroduodenoscopy (EGD) History of revision of total replacement of left knee joint (~01/11/21) History of tonsillectomy and adenoidectomy History of tooth extraction Hx of total knee replacement (2001) Left Family History Aunt Breast cancer Mother Breast cancer Colorectal cancer Father Myocardial infarction Hypertension Brother Parkinson disease Hypertension Grandfather (Maternal) Myocardial infarction Hypertension Grandmother (Maternal) Myocardial infarction Grandmother (Paternal) Myocardial infarction Aunt Breast cancer Aunt Breast cancer Aunt Breast cancer Aunt Breast cancer Aunt Breast cancer Denies family history of Ovarian cancer Prostate cancer Social History Smoking Status: Never smoker Second Hand Exposure: Yes ( A CHILD); Hx Alcohol Use: No Hx Substance Use: No Preferred Language: Bengali Communication Ability: Effective Visual Impairment: No Limitations Hearing Ability: Normal Rehab Director Occupational Therapist Required: No Beliefs That Will Affect Care: None marital status: Current Living Situation: Spouse current occupational status: retired How many Children do You have: 2 Feels Safe at Home: Yes caffeine: No during the past year weight has: remained stable Dental Care, Regularly: Yes Physical Activity Frequency: 3-4 Times per Week Physical Activity Frequency Comment: walking and gardening Seatbelt Use: always Sunscreen Use: Yes Assistive Devices: Glasses and Walker Allergies Allergies Allergy/AdvReac Type Severity Reaction Status Date / Time cyclobenzaprine AdvReac Severe Hallucinati Verified 03/03/21 15:03 ons gabapentin AdvReac Severe Hallucinati Verified 03/03/21 15:03 ons hydrocodone AdvReac Severe Hallucinati Verified 03/03/21 15:03 ons amitriptyline AdvReac Hallucinati Verified 03/03/21 15:03 ng perphenazine AdvReac Hallucinati Verified 03/03/21 15:03 ng Home Meds Home Medications Medication Instructions Recorded Confirmed multivitamin 1 tab PO QAM 06/02/20 03/04/21 ascorbic acid (vitamin C) 500 mg 500 mg PO QAM 09/08/20 03/04/21 tablet calcium carbonate 600 mg (1,500 1 tab PO QAM 11/30/20 03/04/21 mg)-vitamin D3 200 unit tablet lysine 1,000 mg tablet 1,000 mg PO QAM 11/30/20 03/04/21 magnesium 250 mg tablet 250 mg PO QAM 11/30/20 03/04/21 vitamin E 400 unit capsule 400 unit PO BID 11/30/20 03/04/21 Previous Rx's Medication Instructions Recorded solifenacin 5 mg tablet (Vesicare) 5 mg PO DAILY #30 tab 11/21/20 amlodipine 5 mg tablet 5 mg PO BID #180 tab 11/24/20 hydrochlorothiazide 25 mg tablet 25 mg PO BID #180 tab 11/24/20 pravastatin 80 mg tablet 80 mg PO DAILY #90 tab 11/24/20 spironolactone 25 mg tablet 25 mg PO BID #180 tab 12/20/20 ondansetron HCl 4 mg tablet 4 mg PO Q8H PRN #30 tab 03/03/21 (Zofran) Results & Data (ED) Vital Signs Vital Signs - 24 hr 03/04/21 11:34 03/04/21 11:44 03/04/21 13:55 Temperature 36.5 C Temperature Source Temporal Artery Scan Pulse Rate 68 Pulse Rate [Apical] 64 Respiratory Rate 18 18 Respiratory Effort / Characteristics Non-Labored Non-Labored Respiratory Depth Normal Normal Blood Pressure 156/90 H Blood Pressure [Right Arm] 151/75 H Blood Pressure Mean 112 Blood Pressure Mean [Right Arm] 100 Pulse Oximetry 98 Oxygen Delivery Method Room Air Room Air Sepsis Recent Fever Within 48 Hours No Sepsis New/Unexplained Change in Mental Status No Sepsis Action Taken by Nursing No Action Required Home Medications Current Medication List: was personally reviewed by me Laboratory Data Attestation: I reviewed the patient's lab results. Result diagrams: 03/04/21 11:55 03/04/21 11:55 Lab Results 03/04/21 03/04/21 03/04/21 Range/Units 11:55 11:55 11:55 WBC 8.41 (4.8-10.8) K/uL RBC 4.18 L (4.2-5.4) M/uL Hgb 13.0 (12.0-16.0) g/dL Hct 38.1 (37-47) % MCV 91.1 (80-100) fL MCH 31.1 (25-34) pg MCHC 34.1 (32-36) g/dL RDW Std Deviation 44.3 (36.4-46.3) fL RDW Coeff of Ronald 13.2 (11.5-14.5) % Plt Count 259 (130-400) K/uL MPV 9.1 (7.4-10.4) fL Immature Gran % (Auto) 0.1 % Neut % (Auto) 68.9 % Lymph % (Auto) 22.7 % [place] % (Auto) 6.5 % Eos % (Auto) 1.4 % Baso % (Auto) 0.4 % Neut # (Auto) 5.79 (1.4-6.5) K/uL Lymph # (Auto) 1.91 (1.2-3.4) K/uL [place] # (Auto) 0.55 (0.11-0.59) K/uL Eos # (Auto) 0.12 (0-0.5) K/uL Baso # (Auto) 0.03 (0-0.2) K/uL Immature Gran # (Auto) 0.01 (0.00-0.02) K/uL PT 10.5 (9.0-12.0) Seconds INR 1.0 (0.9-1.1) APTT 29.9 (21.0-31.0) Seconds PTT Ratio 1.1 Sodium 136 (136-145) mmol/L Potassium 4.7 (3.5-5.1) mmol/L Chloride 106 (98-107) mmol/L Carbon Dioxide 20 L (21-32) mmol/L Anion Gap 10.0 (3-11) BUN 69 H (7-18) mg/dl Creatinine 3.07 H (0.6-1.2) mg/dl Est Cr Clr Drug Dosing 17.3 ml/min Est GFR ( Amer) 16.3 ml/min Est GFR (Non-Af Amer) 14.1 ml/min BUN/Creatinine Ratio 22.4 H (10-20) Glucose 96 (70-99) mg/dl Calcium 9.9 (8.5-10.1) mg/dl Total Bilirubin 0.3 (0.2-1) mg/dl AST 22 (15-37) U/L ALT 22 (12-78) U/L Alkaline Phosphatase 105 (45-117) U/L Troponin I < 0.015 (0-0.045) ng/ml Total Protein 8.2 (6.4-8.2) gm/dl Albumin 4.4 (3.4-5.0) gm/dl Globulin 3.8 (2.5-4.0) gm/dl Albumin/Globulin Ratio 1.2 (0.9-2) Lipase 200 (73-393) U/L Urine Color Urine Appearance (Clear) Urine pH (4.5-7.5) Ur Specific Jackson (1.000-1.030) Urine Protein (Negative) Urine Glucose (UA) (Negative) Urine Ketones (Negative) Urine Blood (Negative) Urine Nitrite (Negative) Urine Bilirubin (Negative) Urine Urobilinogen (Negative) Ur Leukocyte Esterase (Negative) Urine WBC (Auto) (0-5) /hpf Urine RBC (Auto) (0-4) /hpf U Hyaline Cast (Auto) (0-5) /lpf U Epithel Cells (Auto) (0-5) /lpf Urine Bacteria (Auto) (Negative) Ur Renal Epithelial Cell (0-5) /lpf WBC Casts (0) /lpf COVID-19 Eval Order SARS-CoV-2 (PCR) (Negative) 03/04/21 03/04/21 03/04/21 Range/Units 12:11 13:22 13:22 WBC (4.8-10.8) K/uL RBC (4.2-5.4) M/uL Hgb (12.0-16.0) g/dL Hct (37-47) % MCV (80-100) fL MCH (25-34) pg MCHC (32-36) g/dL RDW Std Deviation (36.4-46.3) fL RDW Coeff of Ronald (11.5-14.5) % Plt Count (130-400) K/uL MPV (7.4-10.4) fL Immature Gran % (Auto) % Neut % (Auto) % Lymph % (Auto) % [place] % (Auto) % Eos % (Auto) % Baso % (Auto) % Neut # (Auto) (1.4-6.5) K/uL Lymph # (Auto) (1.2-3.4) K/uL [place] # (Auto) (0.11-0.59) K/uL Eos # (Auto) (0-0.5) K/uL Baso # (Auto) (0-0.2) K/uL Immature Gran # (Auto) (0.00-0.02) K/uL PT (9.0-12.0) Seconds INR (0.9-1.1) APTT (21.0-31.0) Seconds PTT Ratio Sodium (136-145) mmol/L Potassium (3.5-5.1) mmol/L Chloride (98-107) mmol/L Carbon Dioxide (21-32) mmol/L Anion Gap (3-11) BUN (7-18) mg/dl Creatinine (0.6-1.2) mg/dl Est Cr Clr Drug Dosing ml/min Est GFR ( Amer) ml/min Est GFR (Non-Af Amer) ml/min BUN/Creatinine Ratio (10-20) Glucose (70-99) mg/dl Calcium (8.5-10.1) mg/dl Total Bilirubin (0.2-1) mg/dl AST (15-37) U/L ALT (12-78) U/L Alkaline Phosphatase (45-117) U/L Troponin I (0-0.045) ng/ml Total Protein (6.4-8.2) gm/dl Albumin (3.4-5.0) gm/dl Globulin (2.5-4.0) gm/dl Albumin/Globulin Ratio (0.9-2) Lipase (73-393) U/L Urine Color Yellow Urine Appearance Clear (Clear) Urine pH 5.0 (4.5-7.5) Ur Specific Jackson 1.013 (1.000-1.030) Urine Protein 1+ H (Negative) Urine Glucose (UA) Negative (Negative) Urine Ketones Negative (Negative) Urine Blood Trace H (Negative) Urine Nitrite Negative (Negative) Urine Bilirubin Negative (Negative) Urine Urobilinogen Negative (Negative) Ur Leukocyte Esterase Trace H (Negative) Urine WBC (Auto) 5-10 H (0-5) /hpf Urine RBC (Auto) 0-4 (0-4) /hpf U Hyaline Cast (Auto) 1-5 (0-5) /lpf U Epithel Cells (Auto) >30 H (0-5) /lpf Urine Bacteria (Auto) Negative (Negative) Ur Renal Epithelial Cell 0-5 (0-5) /lpf WBC Casts 1-5 H (0) /lpf COVID-19 Eval Order Covid[address] at [facility] SARS-CoV-2 (PCR) NEGATIVE (Negative) Administered Medications Discontinued Medications Sodium Chloride (Nss) 500 mls @ 999 mls/hr IV .Q31M STA Stop: 03/04/21 12:18 Last Infusion: 03/04/21 13:21 Dose: 0 mls/hr Documented by: [id number] Admin: 03/04/21 12:30 Dose: 999 mls/hr Documented by: [id number] Sodium Chloride (Nss 1000ml) 500 mls @ 999 mls/hr IV .Q31M ONE Stop: 03/04/21 12:25 Last Infusion: 03/04/21 13:21 Dose: 0 mls/hr Documented by: [id number] Admin: 03/04/21 12:30 Dose: 999 mls/hr Documented by: [id number] Sodium Chloride (Nss 1000ml) 1,000 mls @ 999 mls/hr IV .Q1H1M ONE Stop: 03/04/21 13:56 Last Admin: 03/04/21 13:53 Dose: 999 mls/hr Documented by: [id number] Imaging Data Radiologist's Impression: Chest X-Ray 03/04/21 11:49 XR chest 1V portable CLINICAL HISTORY: abnormal lbs COMPARISON STUDY: Chest radiograph January 13, 2021. FINDINGS: Lung volumes are normal. Lungs are clear. There is no pneumothorax or pleural effusion. Cardiac size is stable. Mediastinal contours are normal. There is no evidence for pulmonary edema. Patient is mildly rotated. Scoliosis is again noted. IMPRESSION: No acute cardiopulmonary findings. ACT 112: Negative or not required by law. Electronically signed by: Sincere Mccoy M.D. 03/04/2021 12:15 PM Venous Doppler Study 03/04/21 11:55 BILATERAL LOWER EXTREMITY VENOUS DOPPLER CLINICAL HISTORY: swelling COMPARISON STUDY: Left lower extremity venous Doppler ultrasound January 12, 2021. TECHNIQUE: Sonography of the deep venous system of the bilateral lower extremities was performed. Compression and augmentation were evaluated. FINDINGS: The bilateral common femoral, superficial femoral and popliteal veins were compressible. Augmentation was normal. Flow was shown within the deep calf vessels. IMPRESSION: No evidence of deep venous thrombus within the bilateral lower extremities. ACT 112: Negative or not required by law. Electronically signed by: Sincere Mccoy M.D. 03/04/2021 12:45 PM Discharge Plan Visit Data Chief Complaint: Referred by Doctor Stated Complaint: DR REF FOR BLOOD CLOTS AND KIDNEY FAILURE ED Provider: Jim Saucedo Discharge Problem: Acute kidney injury, Edema, Exertional shortness of breath Patient Disposition: Being Evaluated by Hospitalist Condition: Good Forms Stand Alone Forms: My [facility] [employer] Prescriptions Prescriptions: No Action spironolactone 25 mg tablet 25 mg PO BID Qty: 180 RF: 1 multivitamin Tablet 1 tab PO QAM RF: 0 amlodipine 5 mg tablet 5 mg PO BID Qty: 180 RF: 2 hydrochlorothiazide 25 mg tablet 25 mg PO BID Qty: 180 RF: 1 pravastatin 80 mg tablet 80 mg PO DAILY Qty: 90 RF: 3 solifenacin [Vesicare] 5 mg tablet 5 mg PO DAILY Qty: 30 RF: 2 ondansetron HCl [Zofran] 4 mg tablet 4 mg PO Q8H PRN (Reason: nausea and vomiting) Qty: 30 RF: 0 ascorbic acid (vitamin C) 500 mg tablet 500 mg PO QAM RF: 0 calcium carbonate-vitamin D3 600 mg(1,500mg) -200 unit Tablet 1 tab PO QAM RF: 0 magnesium 250 mg Tablet 250 mg PO QAM RF: 0 vitamin E 400 unit Capsule 400 unit PO BID RF: 0 lysine 1,000 mg tablet 1,000 mg PO QAM RF: 0 Referrals Referrals: Mey Gruber DO [Primary Care Provider] - Discharge Problem: Edema Qualifiers: Edema type: unspecified Qualified Code(s): R60.9 - Edema, unspecified
[2021-03-04] MEDS ORDERED: SODIUM CHLORIDE 0.9% 1000ML 1,000 ML IV ONE (12:56)
[2021-03-04 13:03] LABS: Renal Epithelial Cells Urine 0-5 /lpf (0-5)
--- NOTE | 2021-03-04 18:04 | History & Physical Report ---
Date of Service March 04, 2021 Assessment & Plan (1) Acute kidney injury: Plan: 75 y/o F Hx HTN, HLD. She underwent a L TKA approximately 8 weeks ago and has been struggling with pain and swelling. Recently she has felt progressively weak and has developed nausea and mild SOB over the past few days. She presented to her primary MD who was concerned that she may have a DVT or PE and sent her to the ER for evaluation. LE Doppler was negative and she did not display any tachycardia or hypoxia. Labs were notable for ARF with a BUN creatinine of 70/3, and an elevated dimer. Her renal function was normal one month prior. She does state that since surgery 01/11, she has been taking ibuprofen 3 x daily as she cannot tolerate narcotics. 1) ARF - may be due to NSAIDS combined with her BP medications and the residual effects of surgery. Will provide IVF overnight and hold all NSAIDs and diuretics. We will obtain a FENa however, she has been taking diuretics so the value may not be diagnostic. A renal US is ordered and a nephrology consultation is requested. 2) SOB and an elevated dimer. I do not suspect a PE based on her clinical presentation, vitals and negative LE ultrasound. She cannot be subjected to contrast, so if there is persistent SOB we can order a VQ after Saturday. 3) Fatigue ad nausea are likely due to uremia 4) HTN - per the pt, this has been difficult to control. She will need a sub for her diuretics and will receive PRN IV Hydralazine for now. 5) HLD - cont statin although we will check a CK Full code - Heparin prophylaxis Total time for this admit including review of abs, meds, imaging, records - discussion with pt and ER attending - 51 min (2) Exertional shortness of breath: (3) Aortic stenosis: (4) Diastolic dysfunction: (5) Left knee pain: History of Present Illness Chief Complaint: Fatigue, nausea Primary Care Provider: Mey Gruber, 75 y/o F Hx HTN, HLD. She underwent a L TKA approximately 8 weeks ago and has been struggling with pain and swelling. Recently she has felt progressively weak and has developed nausea and mild SOB over the past few days. She presented to her primary MD who was concerned that she may have a DVT or PE and sent her to the ER for evaluation. LE Doppler was negative and she did not display any tachycardia or hypoxia. Labs were notable for ARF with a BUN creatinine of 70/3, and an elevated dimer. Her renal function was normal one month prior. She does state that since surgery 01/11, she has been taking ibu profen 3 x daily as she cannot tolerate narcotics. PMH: 1) HTN 2) HLD 3) Grade 1 diastolic dysfunction 4) Moderate to severe tricuspid regurge 5) Schwannoma Surgical: 1) L TKA 01/11/2021 2) Hysterectomy 3) Schwannoma 4) Back surgery 5) L TKA - initial 2001 Social: Does not drink or smoke Family: Father - CAD/CT Mother - colon CA Allergies Allergy/AdvReac Type Severity Reaction Status Date / Time cyclobenzaprine AdvReac Severe Hallucinati Verified 03/03/21 15:03 ons gabapentin AdvReac Severe Hallucinati Verified 03/03/21 15:03 ons hydrocodone AdvReac Severe Hallucinati Verified 03/03/21 15:03 ons amitriptyline AdvReac Hallucinati Verified 03/03/21 15:03 ng perphenazine AdvReac Hallucinati Verified 03/03/21 15:03 ng Home Medications Medication Instructions Recorded Confirmed Type multivitamin 1 tab PO QAM 06/02/20 03/04/21 History ascorbic acid (vitamin C) 500 mg 500 mg PO QAM 09/08/20 03/04/21 History tablet solifenacin 5 mg tablet (Vesicare) 5 mg PO DAILY #30 tab 11/21/20 03/04/21 Rx amlodipine 5 mg tablet 5 mg PO BID #180 tab 11/24/20 03/04/21 Rx hydrochlorothiazide 25 mg tablet 25 mg PO BID #180 tab 11/24/20 03/04/21 Rx pravastatin 80 mg tablet 80 mg PO DAILY #90 tab 11/24/20 03/04/21 Rx calcium carbonate 600 mg (1,500 1 tab PO QAM 11/30/20 03/04/21 History mg)-vitamin D3 200 unit tablet lysine 1,000 mg tablet 1,000 mg PO QAM 11/30/20 03/04/21 History magnesium 250 mg tablet 250 mg PO QAM 11/30/20 03/04/21 History vitamin E 400 unit capsule 400 unit PO BID 11/30/20 03/04/21 History spironolactone 25 mg tablet 25 mg PO BID #180 tab 12/20/20 03/04/21 Rx ondansetron HCl 4 mg tablet 4 mg PO Q8H PRN #30 tab 03/03/21 03/04/21 Rx (Zofran) Past Med/Surg History Medical History Alopecia Arthritis Claustrophobia Deep vein thrombosis post-op knee scope (2000) Degenerative disc disease GERD (gastroesophageal reflux disease) History of stomach ulcers History of TIA (transient ischemic attack) 30+ years ago HTN (hypertension) Hyperlipidemia Irregular heartbeat PAC/PVCs- follows with [facility] (Dr. Callahan) Urinary urgency + frequency Surgical History H/O oral surgery Gum surgery H/O total hysterectomy History of arthroscopy Left knee History of back surgery x2, removal of Schwannomas (1997 + 1998) History of colonoscopy History of dilatation and curettage History of ear surgery "Water removed" from ear History of esophagogastroduodenoscopy (EGD) History of revision of total replacement of left knee joint (~01/11/21) History of tonsillectomy and adenoidectomy History of tooth extraction Hx of total knee replacement (2001) Left Family History Aunt Breast cancer Mother Breast cancer Colorectal cancer Father Myocardial infarction Hypertension Brother Parkinson disease Hypertension Grandfather (Maternal) Myocardial infarction Hypertension Grandmother (Maternal) Myocardial infarction Grandmother (Paternal) Myocardial infarction Aunt Breast cancer Aunt Breast cancer Aunt Breast cancer Aunt Breast cancer Aunt Breast cancer Denies family history of Ovarian cancer Prostate cancer Social History Smoking Status: Never smoker Second Hand Exposure: Yes ( A CHILD); Hx Alcohol Use: No Hx Substance Use: No Preferred Language: Kittitian Communication Ability: Effective Visual Impairment: No Limitations Hearing Ability: Normal Topstitcher Lockstitch Required: No Beliefs That Will Affect Care: None marital status: Current Living Situation: Spouse current occupational status: retired How many Children do You have: 2 Feels Safe at Home: Yes caffeine: No during the past year weight has: remained stable Dental Care, Regularly: Yes Physical Activity Frequency: 3-4 Times per Week Physical Activity Frequency Comment: walking and gardening Seatbelt Use: always Sunscreen Use: Yes Assistive Devices: Glasses and Walker Review of Systems Review of Systems: Gen: Denies fevers, night sweats - describes progressive weakness or fatigue ENT: Denies congestion, throat pain, hearing loss Eyes: Denies acute visual changes CV: Denies CP, palpitations Pulmonary: + mild SOB GI: Denies diarrhea, constipation. + Nausea Neuro: Denies acute or unilateral weakness, acute gait impairment, headache or acute visual changes Musculoskeletal: + L knee pain and swelling persists since surgery Endocrine: Denies polydipsia, polyuria Skin: Denies acute rashes or ulcers Physical Exam 2 Physical Exam: General: AAO x 3, no distress ENT: No erythema or exudates, no thrush Eyes: MERY, EOMI Head and neck: Normocephalic, atraumatic, No JVD, neck is supple. Chest/heart: Nontender, S1,2, RRR, no murmurs, no gallops Lungs: CTAB, no wheezing or crackles Abdomen: Nontender, nondistended, BS+ Neuro: AAO x 3, speech is clear, no unilateral weakness or loss of sensation, coordination intact Musculoskeletal: The L knee is swollen without evidence of infection. No pain was elicited with palpation and range of motion is adequate Skin: No acute rashes or ulcers Extremities: No clubbing, cyanosis Results & Data Results & Data ([facility]) Vital Signs (Past 12 Hours) Vital Signs Temp Pulse Pulse Resp BP BP Pulse Ox 03/04/21 17:10 52 L 23 03/04/21 17:04 59 L 16 03/04/21 16:50 55 L 22 03/04/21 16:40 54 L 24 03/04/21 16:30 52 L 19 03/04/21 16:20 55 L 20 03/04/21 16:10 60 20 03/04/21 16:01 75 17 03/04/21 15:00 53 L 53 L 20 114/71 114/71 98 03/04/21 14:00 56 L 18 144/88 H 03/04/21 13:55 64 18 151/75 H 98 03/04/21 13:48 55 L 18 151/75 H 07/24/21 13:20 59 L 22 03/04/21 13:10 54 L 21 03/04/21 13:00 54 L 18 03/04/21 12:51 75 24 03/04/21 12:10 52 L 19 03/04/21 12:05 55 L 23 03/04/21 11:34 97.7 F 68 18 156/90 H Code Status & VTE Plan VTE Prophylaxis Plan VTE Prophylaxis will be ordered: Yes PG Care Time/CCT Total # of Minutes Spent Total Time Spent with Patient: Total time spent is greater than 50% in coordination of care (as documented) at patient's floor/unit and/or counseling patient: Coding Level of Care Code 57169 Initial Inpt Care Lvl 3 Diagnoses Acute kidney injury N17.9 Exertional shortness of breath R06.02 Aortic stenosis I35.0 Diastolic dysfunction I51.89 Left knee pain M25.562
[2021-03-04] MEDS ORDERED: hydrALAZINE HCL 20 MG/ML VIAL IV PRN (18:28)
[2021-03-04] MEDS ORDERED: POLYETHYLENE (MIRALAX) 17 GM PACK PO PRN (19:43)
[2021-03-04] MEDS: SODIUM CHLORIDE 0.9% 1000ML 1,000 ML IV SCH (19:54)
[2021-03-04 19:55] LABS: Thyroid Stimulating Hormone 1.53 uIu/ml (0.300-4.500)
[2021-03-04] MEDS: amLODIPine BESYLATE 5 MG TAB PO SCH (21:16)
[2021-03-04] MEDS: HEPARIN SOD 5,000 UNIT/0.5 ML VIAL SQ SCH (21:17)
[2021-03-05] MEDS: SODIUM CHLORIDE 0.9% 1000ML 1,000 ML IV SCH (02:34)
[2021-03-05] MEDS: ACETAMINOPHEN 325 MG TAB PO PRN ×2 (02:44→09:21)
[2021-03-05] MEDS: HEPARIN SOD 5,000 UNIT/0.5 ML VIAL SQ SCH ×3 (05:47→22:37)
[2021-03-05 07:47] LABS: BUN Creatinine Ratio 26.9 (10-20); Creatinine Clr Calc Pharmacy 26.9 ml/min; Est GFR (African American) 27.7 ml/min; Est GFR (Non-African American) 23.9 ml/min; Magnesium 2.3 mg/dl (1.8-2.4); Phosphorus 4.3 mg/dl (2.5-4.9); Potassium 4.6 mmol/L (3.5-5.1)
[2021-03-05] MEDS ORDERED: DEXTROSE 5% 1,000 ML IV SCH (09:00)
[2021-03-05] MEDS: PRAVASTATIN SOD 40 MG TAB PO SCH (09:22)
[2021-03-05] MEDS: amLODIPine BESYLATE 5 MG TAB PO SCH ×2 (09:22→21:11)
[2021-03-05] MEDS: SODIUM BICARBONATE 650 MG TAB PO SCH ×2 (10:23→20:50)
--- NOTE | 2021-03-05 10:38 | Hospitalist Progress Note ---
Date of Service March 05, 2021 Assessment & Plan (1) Acute kidney injury: Plan: WBC casts in urine Suspected secondary to NSAIDS. Possibly diuretics were also too much for her in addition after her surgery. Renal US ordered Initially cancelled nephrology consult as diagnosis appears clear and patient improving however family insisting she sees nephrology to get on the right anti- hypertensive regimen on discharge (planning on following with Dr Galicia as an outpatient. (2) Hyperchloremic metabolic acidosis: Plan: D5W started intially @ 80ml/hr but given significantly positive balance and suspect she will need to start back on her diuretics tomorrow will discontinue this further. Start sodium bicarbonate 650mg PO BID Monitor with BMP in AM (3) HTN (hypertension): Plan: Reports previously poorly controlled requiring x7 medications. Dr Holman got her down to her current three. Following up with Dr Galicia for hypertension control. While diuretics on hold will use hydralazine PRN. Continue amlodipine 5mg PO BID (4) Exertional shortness of breath: Plan: PT eval (5) Aortic stenosis: Plan: Noted (6) Diastolic dysfunction: Plan: Suspect will need restarting on diuretics tomorrow or Saturday (7) Left knee pain: Plan: VTE prophylaxis - heparin 5000 units SQ Q8H Admission and Anticipated Discharge Date Admission Date: March 04, 2021 Subjective UO good. Urinary frequency from overnight and in the ER. Physical Exam Constitutional: WD/WN, vitals as above Eyes: + anicteric sclerae; normal pupil size ENMT: external ear and nose normal, oropharynx normal Mouth: oral mucous membranes not dry Neck: trachea midline, no thyromegaly Respiratory: normal respiratory effort, lungs clear to auscultation Cardiovascular: RRR, no murmur, no edema Gastrointestinal (Abdomen): normal bowel sounds, soft, nontender, no hepatosplenomegaly Musculoskeletal: no cyanosis or clubbing, extremities motor strength 5/5 Skin: no rashes, warm and dry Neurologic: moves all extremities and awake; not confused Psychiatric: A+Ox3, euthymic affect Genitourinary: no CVA tenderness Results & Data Results & Data ([facility]) Vital Signs (Past 12 Hours) Vital Signs Temp Pulse Pulse Resp BP Pulse Ox 03/05/21 07:35 36.4 C L 55 L 20 147/77 H 99 03/05/21 03:06 36.6 C 48 L 18 126/70 97 03/05/21 00:15 51 L 03/04/21 23:00 36.5 C 49 L 18 132/71 98 PG Care Time/CCT Total # of Minutes Spent Total Time Spent with Patient: Total time spent is greater than 50% in coordination of care (as documented) at patient's floor/unit and/or counseling patient: Coding Level of Care Code 89011 Subseq Hosp Care Lvl 3 Diagnoses Acute kidney injury N17.9 Exertional shortness of breath R06.02 Aortic stenosis I35.0 Diastolic dysfunction I51.89 Left knee pain M25.562 Hyperchloremic metabolic acidosis E87.2 HTN (hypertension) I10
--- NOTE | 2021-03-05 11:25 | Electrocardiogram Report ---
Test Reason : Blood Pressure : / mmHG Vent. Rate : 062 BPM Atrial Rate : 062 BPM P-R Int : 146 ms QRS Dur : 104 ms QT Int : 398 ms P-R-T Axes : 019 -26 069 degrees QTc Int : 403 ms Normal sinus rhythm Left ventricular hypertrophy with repolarization abnormality Abnormal ECG When compared with ECG of 12-JAN-2021 11:29, T wave inversion no longer evident in Inferior leads Confirmed by Roly Addison ([id number]) on 03/05/2021 11:24:32 AM Referred By: REFERRED SELF Confirmed By:Roly Addison
[2021-03-06] MEDS: HEPARIN SOD 5,000 UNIT/0.5 ML VIAL SQ SCH (06:18)
[2021-03-06 06:46] LABS: BUN Creatinine Ratio 25.5 (10-20); Calcium 9.1 mg/dl (8.5-10.1); Creatinine Clr Calc Pharmacy 32.3 ml/min; Est GFR (African American) 34.6 ml/min; Est GFR (Non-African American) 29.8 ml/min; Potassium 4.9 mmol/L (3.5-5.1)
--- NOTE | 2021-03-06 07:58 | Ultrasound Report ---
RENAL ULTRASOUND HISTORY: Acute kidney injury. COMPARISON: Abdomen and pelvis CT 01/13/2021. Renal ultrasound 01/12/2021. FINDINGS: Right kidney: 11.8 cm. No hydronephrosis. Moderate cortical thinning. A few subcentimeter cysts are n oted. Left kidney: 11.5 cm. No hydronephrosis. Moderate cortical thinning. A few subcentimeter cysts are no dwight. Bladder: No bladder wall thickening. The bilateral ureteral jets were identified. IMPRESSION: 1. No hydronephrosis. 2. Moderate bilateral cortical renal thinning. 3. A few bilateral subcentimeter renal cysts. ACT 112: Negative or not required by law. Electronically signed by: Amol Evangelista M.D. 03/06/2021 7:56 AM
[2021-03-06] MEDS: PRAVASTATIN SOD 40 MG TAB PO SCH (08:37)
[2021-03-06] MEDS: amLODIPine BESYLATE 5 MG TAB PO SCH (08:37)
[2021-03-06] MEDS: SODIUM BICARBONATE 650 MG TAB PO SCH (08:37)
--- NOTE | 2021-03-06 10:15 | Nephrology Consultation ---
Date of Consultation March 06, 2021 Assessment & Plan (1) Acute kidney injury: (2) Hyperchloremic metabolic acidosis: (3) Edema: (4) HTN (hypertension): (5) Hyperlipidemia: 75-year-old female with hypertension, dyslipidemia and recent left knee surgery admitted to the hospital with MICHELLE in the setting of heavy NSAID use for 6-8 weeks in addition to hydrochlorothiazide and spironolactone on board. Creatinine peaked to 3.0, which started to improved and down to 1.7, electrolyte abnormality improved. Blood pressure has been variable but overall decent. clinically otherwise asymptomatic and seems to be at baseline. --As renal function improving, electrolyte acceptable, blood pressure well controlled, volume status acceptable, okay to be discharged with close outpatient lab monitoring. Recommend renal panel on 03/08/2021 and sending the report to her PCP and plate maker zinc Dr. Galicia --okay to resume hydrochlorothiazide and spironolactone on discharge. would recommend changing hydrochlorothiazide to 25 mg daily which can be adjusted further as needed during her upcoming nephrology visit with Dr. Galicia --would discontinue sodium bicarbonate on discharge --advised to keep well hydrated, continue to avoid all NSAIDs Will follow while inpatient Thank you for allowing me to participate in your patient's care. It was a pleasure to see Irish History of Present Illness Attending Physician: Dez Whitaker History of Present Illness Irish Muhammad is a 75-year-old female Admitted to the hospital with MICHELLE and left lower extremity edema. Nephrology consult was requested for management of AK I and hypertension. EMR records are reviewed in detail during patient's visit. Irish was admitted to the hospital 3 days ago after outpatient lab showed MICHELLE. she had a laugh knee redo arthroplasty in late January. she has been recovering well from the surgery with physical therapy. For pain control she has been taking ibuprofen 2 tab 4 times a day as she has intolerance to narcotics. She Has been having left lower extremity swelling, pain and shortness of breath as well as generalized weakness. She was evaluated by her PCP and had outpatient lab done which showed elevated D-dimer and elevated creatinine. Lower extremity Doppler was negative for DVT. she was also on hydrochlorothiazide and spironolactone which was on hold since admission. Renal ultrasound was negative for postrenal obstruction. Urinalysis otherwise unremarkable. She has history of poorly controlled hypertension which has been lately well controlled on amlodipine 5 b.i.d., hydrochlorothiazide 25 b.i.d. and spironolactone 25 b.i.d.. History of dyslipidemia, on pravastatin. Has normal renal function at baseline. No evidence of end-organ damage from hypertension. Has been following low-sodium diet. No history of coronary artery disease. she reports history of TIA before without any residual weakness. Renal function continues to improve, creatinine down to 1.7 from peak of 3.0, electrolyte acceptable. Blood pressure overall well controlled with some variability. She denies any symptom, feels she is at her baseline and ready to go home. Has been walking in the hallway without any difficulty. Allergies Allergy/AdvReac Type Severity Reaction Status Date / Time cyclobenzaprine AdvReac Severe Hallucinati Verified 03/03/21 15:03 ons gabapentin AdvReac Severe Hallucinati Verified 03/03/21 15:03 ons hydrocodone AdvReac Severe Hallucinati Verified 03/03/21 15:03 ons amitriptyline AdvReac Hallucinati Verified 03/03/21 15:03 ng perphenazine AdvReac Hallucinati Verified 03/03/21 15:03 ng Home Medications Medication Instructions Recorded Confirmed Type multivitamin 1 tab PO QAM 06/02/20 03/04/21 History ascorbic acid (vitamin C) 500 mg 500 mg PO QAM 09/08/20 03/04/21 History tablet solifenacin 5 mg tablet (Vesicare) 5 mg PO DAILY #30 tab 11/21/20 03/04/21 Rx amlodipine 5 mg tablet 5 mg PO BID #180 tab 11/24/20 03/04/21 Rx hydrochlorothiazide 25 mg tablet 25 mg PO BID #180 tab 11/24/20 03/04/21 Rx pravastatin 80 mg tablet 80 mg PO DAILY #90 tab 11/24/20 03/04/21 Rx calcium carbonate 600 mg (1,500 1 tab PO QAM 11/30/20 03/04/21 History mg)-vitamin D3 200 unit tablet lysine 1,000 mg tablet 1,000 mg PO QAM 11/30/20 03/04/21 History magnesium 250 mg tablet 250 mg PO QAM 11/30/20 03/04/21 History vitamin E 400 unit capsule 400 unit PO BID 11/30/20 03/04/21 History spironolactone 25 mg tablet 25 mg PO BID #180 tab 12/20/20 03/04/21 Rx ondansetron HCl 4 mg tablet 4 mg PO Q8H PRN #30 tab 03/03/21 03/04/21 Rx (Zofran) Patient History Medical History Alopecia Arthritis Claustrophobia Deep vein thrombosis post-op knee scope (2000) Degenerative disc disease GERD (gastroesophageal reflux disease) History of stomach ulcers History of TIA (transient ischemic attack) 30+ years ago HTN (hypertension) Hyperlipidemia Irregular heartbeat PAC/PVCs- follows with [facility] (Dr. Callahan) Urinary urgency + frequency Surgical History H/O oral surgery Gum surgery H/O total hysterectomy History of arthroscopy Left knee History of back surgery x2, removal of Schwannomas (1997 + 1998) History of colonoscopy History of dilatation and curettage History of ear surgery "Water removed" from ear History of esophagogastroduodenoscopy (EGD) History of revision of total replacement of left knee joint (~01/11/21) History of tonsillectomy and adenoidectomy History of tooth extraction Hx of total knee replacement (2001) Left Family History Aunt Breast cancer Mother Breast cancer Colorectal cancer Father Myocardial infarction Hypertension Brother Parkinson disease Hypertension Grandfather (Maternal) Myocardial infarction Hypertension Grandmother (Maternal) Myocardial infarction Grandmother (Paternal) Myocardial infarction Aunt Breast cancer Aunt Breast cancer Aunt Breast cancer Aunt Breast cancer Aunt Breast cancer Denies family history of Ovarian cancer Prostate cancer Social History Smoking Status: Never smoker Second Hand Exposure: No; Hx Alcohol Use: No Hx Substance Use: No Preferred Language: Georgian Communication Ability: Effective Visual Impairment: No Limitations Hearing Ability: Normal Hide Splitter Required: No Beliefs That Will Affect Care: None marital status: Current Living Situation: Spouse current occupational status: retired How many Children do You have: 2 Feels Safe at Home: Yes caffeine: No during the past year weight has: remained stable Dental Care, Regularly: Yes Physical Activity Frequency: 3-4 Times per Week Physical Activity Frequency Comment: walking and gardening Seatbelt Use: always Sunscreen Use: Yes Assistive Devices: Glasses Review of Systems Review of Systems: Detailed review of system was otherwise unremarkable except mentioned in HPI Physical Exam Constitutional: WD/WN, vitals as above well developed and well nourished; no acute distress Eyes: PERRL, conjunctivae normal, anicteric sclerae ENMT: external ear and nose normal, oropharynx normal Ears: no hearing impairment Neck: trachea midline Respiratory: normal respiratory effort, lungs clear to auscultation no cough Auscultation: no crackles, no rales and no wheezes Cardiovascular: RRR, no murmur, no edema Gastrointestinal (Abdomen): normal bowel sounds, soft, nontender, no hepatos plenomegaly Percussion/Palpation: abdomen nontender, no guarding and abdomen not rigid Musculoskeletal: Extremities: extremities normal to inspection Gait: normal gait Knee: + surgical incision ( to well-healed surgical incision, mild edema) Skin: no rashes, warm and dry Neurologic: moves all extremities and awake Psychiatric: A+Ox3, euthymic affect Results & Data ([facility]) Vital Signs (Past 12 Hours) Vital Signs Temp Pulse Pulse Resp BP Pulse Ox 03/06/21 08:00 36.5 C 49 L 18 130/77 93 03/06/21 07:22 55 L 03/06/21 04:18 47 L 03/06/21 04:00 36.7 C 52 L 18 144/67 H 97 03/06/21 00:00 36.8 C 73 18 138/73 97 PG Care Time/CCT Total # of Minutes Spent Total Time Spent with Patient: Total time spent is greater than 50% in coordination of care (as documented) at patient's floor/unit and/or counseling patient: Coding Level of Care Code 57206 Initial Inpt Care Lvl 3 Diagnoses Acute kidney injury N17.9 Hyperchloremic metabolic acidosis E87.2 Edema R60.9 Edema type: unspecified HTN (hypertension) I10 Hyperlipidemia E78.5 (1) Edema Edema type: unspecified Qualified Code(s): R60.9 - Edema, unspecified
--- NOTE | 2021-03-07 13:59 | Discharge Summary ---
Date of Service March 06, 2021 Admission HPI Per Admitting Provider 75 y/o F Hx HTN, HLD. She underwent a L TKA approximately 8 weeks ago and has been struggling with pain and swelling. Recently she has felt progressively weak and has developed nausea and mild SOB over the past few days. She presented to her primary MD who was concerned that she may have a DVT or PE and sent her to the ER for evaluation. LE Doppler was negative and she did not display any tachycardia or hypoxia. Labs were notable for ARF with a BUN creatinine of 70/3, and an elevated dimer. Her renal function was normal one month prior. She does state that since surgery 01/11, she has been taking ibuprofen 3 x daily as she cannot tolerate narcotics. PMH: 1) HTN 2) HLD 3) Grade 1 diastolic dysfunction 4) Moderate to severe tricuspid regurge 5) Schwannoma Surgical: 1) L TKA 01/11/2021 2) Hysterectomy 3) Schwannoma 4) Back surgery 5) L TKA - initial 2001 Social: Does not drink or smoke Family: Father - CAD/TN Mother - colon CA Principal Diagnosis acute kidney injury Discharge Exam Constitutional: WD/WN, vitals as above Eyes: + anicteric sclerae; normal pupil size ENMT: external ear and nose normal, oropharynx normal Mouth: oral mucous membranes not dry Neck: trachea midline, no thyromegaly Respiratory: normal respiratory effort, lungs clear to auscultation Cardiovascular: RRR, no murmur, no edema Gastrointestinal (Abdomen): normal bowel sounds, soft, nontender, no hepatosplenomegaly Musculoskeletal: no cyanosis or clubbing, extremities motor strength 5/5 Skin: no rashes, warm and dry Neurologic: moves all extremities and awake; not confused Psychiatric: A+Ox3, euthymic affect Genitourinary: no CVA tenderness Discharge Data Allergies Allergy/AdvReac Type Severity Reaction Status Date / Time cyclobenzaprine AdvReac Severe Hallucinati Verified 03/03/21 15:03 ons gabapentin AdvReac Severe Hallucinati Verified 03/03/21 15:03 ons hydrocodone AdvReac Severe Hallucinati Verified 03/03/21 15:03 ons amitriptyline AdvReac Hallucinati Verified 03/03/21 15:03 ng perphenazine AdvReac Hallucinati Verified 03/03/21 15:03 ng Consultations 03/04/21 13:17 ED Decision to Admit Stat 03/05/21 17:46 Consult Nephrology Routine Ordered Studies 03/04/21 11:55 US venous doppler LE BI Stat 03/05/21 17:55 US renal/blad retro comp Routine Hospital Course (1) Acute kidney injury: WBC casts in urine Suspected secondary to NSAIDS. Possibly diuretics were also too much for her in addition after her surgery. Renal US ordered Appreciate input from Nephro: --As renal function improving, electrolyte acceptable, blood pressure well controlled, volume status acceptable, okay to be discharged with close outpatient lab monitoring. Recommend renal panel on 03/08/2021 and sending the report to her PCP and breakfast server Dr. Galicia --okay to resume hydrochlorothiazide and spironolactone on discharge. would recommend changing hydrochlorothiazide to 25 mg daily which can be adjusted further as needed during her upcoming nephrology visit with Dr. Galicia --would discontinue sodium bicarbonate on discharge --advised to keep well hydrated, continue to avoid all NSAIDs Patient will be discharged with medication changes listed below in discharge medications list. (2) Hyperchloremic metabolic acidosis: Resolved. Treated below with the following: D5W started intially @ 80ml/hr but given significantly positive balance and suspect she will need to start back on her diuretics tomorrow will discontinue this further. Start sodium bicarbonate 650mg PO BID (3) HTN (hypertension): Reports previously poorly controlled requiring x7 medications. Dr Holman got her down to her current three. Following up with Dr Galicia for hypertension control. While diuretics on hold will use hydralazine PRN. Continue amlodipine 5mg PO BID (4) Exertional shortness of breath: PT eval (5) Aortic stenosis: Noted (6) Diastolic dysfunction: Suspect will need restarting on diuretics tomorrow or Saturday (7) Left knee pain: VTE prophylaxis - heparin 5000 units SQ Q8H Total Time Total Time Spent Total Time Spent (In Minutes): 32 Discharge Plan Discharge Items Patient Disposition: Home - Self-Care Reason For Visit: ARF Discharge Diagnosis: ACUTE RENAL FAILURE Condition on Discharge: Good Activity: Resume your previous activity Non-emergency contact: Primary Care Provider Call non-emergency contact if: you have any medication questions Follow-up/Referrals: Ricotta,Mey M., DO [Primary Care Provider] - 03/10/21 8:20 am Diet: Regular and Heart Healthy Addtl Attending Provider Instructions: Okay to resume hydrochlorothiazide and spironolactone on discharge. But will decrease hydrochlorothiazide to 25 mg daily. This can be adjusted further as needed during your upcoming nephrology visit with Dr. Galicia Advised to keep well hydrated, continue to avoid all NSAIDs Recommend renal panel on 03/08/2021 and sending the report to her PCP and breakfast server Dr. Galicia Pending Studies at Discharge: No Stand-Alone Forms: My [email or web address], Smoking Cessation Medications and DC Order Prescriptions: Continued spironolactone 25 mg tablet 25 mg PO BID Qty: 180 RF: 1 multivitamin Tablet 1 tab PO QAM RF: 0 amlodipine 5 mg tablet 5 mg PO BID Qty: 180 RF: 2 pravastatin 80 mg tablet 80 mg PO DAILY Qty: 90 RF: 3 solifenacin [Vesicare] 5 mg tablet 5 mg PO DAILY Qty: 30 RF: 2 ondansetron HCl [Zofran] 4 mg tablet 4 mg PO Q8H PRN (Reason: nausea and vomiting) Qty: 30 RF: 0 ascorbic acid (vitamin C) 500 mg tablet 500 mg PO QAM RF: 0 calcium carbonate-vitamin D3 600 mg(1,500mg) -200 unit Tablet 1 tab PO QAM RF: 0 magnesium 250 mg Tablet 250 mg PO QAM RF: 0 vitamin E 400 unit Capsule 400 unit PO BID RF: 0 lysine 1,000 mg tablet 1,000 mg PO QAM RF: 0 Changed hydrochlorothiazide 25 mg tablet 25 mg PO DAILY Qty: 180 RF: 1 Discharge Orders: Discharge Order (Routine); Ordered 03/06/21 Ordered By: Dez Whitaker Admission Data Admit Date/Time: 03/04/21 17:51 Attending Provider: Dez Whitaker Admit Provider: Francisco Marie Primary Care Provider: Mey Gruber Other Providers: Francisco Marie ; Samreen Lynn Other Interventions: Discharge Summary Assessment (RN) Last Done: 03/06/21 15:48 Coding Level of Care Code D/C DAY MANAGEMENT >30 MINS Diagnoses Acute kidney injury N17.9 Hyperchloremic metabolic acidosis E87.2 HTN (hypertension) I10 Exertional shortness of breath R06.02 Aortic stenosis I35.0 Diastolic dysfunction I51.89 Left knee pain M25.562
== END 2021-03-06 16:12 | disposition home or self-care (01) ==
LOC: ED 11:32 → 2W 17:51 → SUATTDRO 17:51 → INTOOBSV 17:51 → 2W 18:49 → 2N 03-05 18:45

== ENCOUNTER 2023-06-26 05:03 | Observation (INO) ==
--- NOTE | 2023-05-29 10:34 | PAT Medication Instructions ---
Medication Instructions Date of Service May 29, 2023 Home Medications Medication Instructions Recorded amlodipine 5 mg tablet 5 mg PO BID #180 tabs 08/28/22 fenofibrate 160 mg tablet 160 mg PO DAILY #90 tabs 11/13/22 spironolactone 25 mg tablet 25 mg PO BID #180 tabs 12/20/22 pravastatin 80 mg tablet 80 mg PO DAILY #90 tabs 02/05/23 diclofenac sodium 3 % topical gel 1 applic topical BID PRN pain #100 02/06/23 grams hydrochlorothiazide 25 mg tablet 25 mg PO BID #180 tabs 02/27/23 multivitamin (Multiple Vitamins tablet) 1 tab PO DAILY amlodipine 5 mg tablet 5 mg PO BID fenofibrate 160 mg tablet 160 mg PO DAILY spironolactone 25 mg tablet 25 mg PO BID pravastatin 80 mg tablet 80 mg PO DAILY diclofenac sodium 3 % topical gel 1 applic topical BID PRN hydrochlorothiazide 25 mg tablet 25 mg PO BID Continue as directed pravastatin 80 mg tablet 80 mg PO DAILY STOP taking 48 hours before surgery fenofibrate 160 mg tablet 160 mg PO DAILY STOP taking 24 hours before surgery diclofenac sodium 3 % topical gel 1 applic topical BID PRN DO NOT take the morning of surgery multivitamin (Multiple Vitamins tablet) 1 tab PO DAILY spironolactone 25 mg tablet 25 mg PO BID hydrochlorothiazide 25 mg tablet 25 mg PO BID Take morning of surgery With a small sip of water, OTHERWISE NOTHING TO EAT OR DRINK AFTER MIDNIGHT: amlodipine 5 mg tablet 5 mg PO BID Take evening before surgery amlodipine 5 mg tablet 5 mg PO BID spironolactone 25 mg tablet 25 mg PO BID hydrochlorothiazide 25 mg tablet 25 mg PO BID Other Notes If you have any questions please call us at [phone] or [phone] or [phone] or [phone]
--- NOTE | 2023-05-31 09:55 | Anesthesiology Consultation ---
Date of Service May 31, 2023 Assessment & Plan (1) Encounter for pre-operative examination: Plan - coagulation studies from PAT visit hemolyzed per lab. Neuraxial anesthesia is not primary plan for surgery as noted below; if needed, coags can be ordered by anesthesiologist STAT am DOS. - upcoming 06/12/23 [facility] PCP pre-operative evaluation. - cardiology optimization response 05/31/23: "...She is not on any negative chronotropic medications, her resting HR is typically bradycardic, and she has normal LV systolic function on her most recent echocardiogram. As long as she is asymptomatic from a cardiac standpoint i.e. no unusual dyspnea on exertion, no exertional chest discomfort, and no lightheadedness particularly after exertion -- she is optimized..." - spinal block patient concerns given extensive lumbar surgery. Given this, moderate-severe aortic stenosis and general anesthesia used for 2020 left TKA revision, discussed with patient plan would be for general anesthesia unless patient/assigned anesthesiologist determine otherwise day of surgery. Case discussed in detail with Dr. Leary who agrees with this plan, advised workload note to [facility] and that he felt patient did not need evaluated in their office unless advised by cardiology. - moderate to severe aortic stenosis. - s/p left TKA revision 01/11/21: LMA#4 igel + PNB. - cardiology office visit 03/21/23 [place]: "...Hypertension, Mild LVH, LV Diastolic Dysfunction, Moderate Tricuspid Regurgitation, Mild Mitral Regurgitation, Jerihmsg-[id number] Aortic Stenosis (03/19/2023), Symptomatic PACs/PVCs, CKD, Hypothyroidism, Anxiety, Osteoarthritis, and Hypercholesterolemia who presents today for Cardiologic Follow-up...has remained stable from a cardiac standpoint...stays active on a daily basis by taking care of her home. She enjoys working in her flower beds at this time of the year...scheduled to meet with Dr. Licea regarding her right knee pain/arthritis...able to do her usual activities daily living without limiting cardiopulmonary symptoms...exertional tolerance and stamina are stable...has not experienced any angina pectoris or anginal equivalent symptoms, overt signs or symptoms of heart failure, nor has she had any symptoms suggestive of dysrhythmia. She has not experienced any post exertional lightheadedness or syncopal episodes...has not had any symptoms suggestive of stroke or mini stroke...aortic stenosis is now moderate to severe. When compared to 02/22/2022 study; has progressed. We discussed the red flag symptoms to watch out for regarding progressive aortic stenosis...verbalized understanding of this discussion..." - Outpatient joint assessment: Patient is currently scheduled for inpatient pathway. If re-evaluated and patient/surgeon requests outpatient pathway, patient is not candidate for outpatient joint program from anesthesia standpoint. Chart Review Chart Review: Pending: Refer to Additional Notes / Consult section and Patient seen in Pre Admission Testing Teaching & Discussion Pre-Anesthesia Teaching/Discussion Notes: Instructed NPO after midnight before surgery, except medications with 15 cc of water. Medication instructions provided according to the PAT guidelines. History Surgery Operation Date: 06/26/23 09:50 Proposed Procedures p Right Total Knee Arthroplasty - Yousif Licea MD Height/Weight Height: 5 ft 6 in Weight: 83.8 kg Allergies Allergy/AdvReac Type Severity Reaction Status Date / Time tramadol Allergy Severe Hallucinati Verified 05/24/23 11:12 ons amitriptyline AdvReac Severe Hallucinati Verified 05/24/23 11:12 ng cyclobenzaprine AdvReac Severe Hallucinati Verified 05/24/23 11:12 ons gabapentin AdvReac Severe Hallucinati Verified 05/24/23 11:12 ons hydrocodone AdvReac Severe Hallucinati Verified 05/24/23 11:12 ons NSAIDS (Non-Steroidal AdvReac Severe renal Verified 05/31/23 10:22 Anti-Inflamma failure donepezil AdvReac Intermediate depression Verified 05/31/23 10:25 perphenazine AdvReac Intermediate Hallucinati Verified 05/24/23 11:12 ng Medications Home Medications Medication Instructions Recorded Confirmed Last Taken multivitamin (Multiple Vitamins 1 tab PO DAILY 05/25/21 05/24/23 Unknown tablet) amlodipine 5 mg tablet 5 mg PO BID #180 tabs 08/28/22 05/24/23 Unknown fenofibrate 160 mg tablet 160 mg PO DAILY #90 tabs 11/13/22 05/24/23 Unknown spironolactone 25 mg tablet 25 mg PO BID #180 tabs 12/20/22 05/24/23 Unknown pravastatin 80 mg tablet 80 mg PO DAILY #90 tabs 02/05/23 05/24/23 Unknown diclofenac sodium 3 % topical gel 1 applic topical BID PRN pain #100 02/06/23 05/24/23 Unknown grams hydrochlorothiazide 25 mg tablet 25 mg PO BID #180 tabs 02/27/23 05/24/23 Unknown Past Medical History Medical History (Updated 05/31/23 @ 10:29 by Cheyanne Green PA-C) Anxiety Aortic stenosis moderate to severe CKD (chronic kidney disease) h/o post-op renal failure Claustrophobia Confusion, postoperative has removed IVs post-op in the past Deep vein thrombosis post-op knee scope (2000) Degenerative disc disease GERD (gastroesophageal reflux disease) controlled, stable per pt History of cardiac arrest jm-operatively, 1997-pt states staff advised was due to error-no additional information or available records-states she did well with second spinal surgery in 1998. History of COVID-19 07/2021 no hosp; resolved History of migraine with aura stable per pt History of stomach ulcers several yrs ago History of TIA (transient ischemic attack) 30+ years ago HTN (hypertension) controlled, stable per pt Hyperlipidemia Hypothyroidism Irregular heartbeat PAC/PVCs- follows with [facility] (Dr. Callahan) LVH (left ventricular hypertrophy) MCI (mild cognitive impairment) following with [facility] PCP, not on medication d/t adverse effects Moderate tricuspid regurgitation Pulmonary hypertension RVSP 40-50 mmHg Tricuspid regurgitation moderate Patient denies h/o seizures, heart attack, heart failure, DM, or blood transfusions. Exercise / Class Metabolic Activity II 4-5 Yardwork/Stairs/Walk up hill (denies chest discomfort or shortness of breath with 1 FOS) Past Family History Family History Aunt Breast cancer Mother Breast cancer Colorectal cancer Father Myocardial infarction Hypertension Brother Parkinson disease Hypertension Grandfather (Maternal) Myocardial infarction Hypertension Grandmother (Maternal) Myocardial infarction Dementia Grandmother (Paternal) Myocardial infarction Aunt Breast cancer Aunt Breast cancer Aunt Breast cancer Aunt Breast cancer Aunt Breast cancer Son Myocardial infarction, Onset Age: 52 Stroke Denies family history of Ovarian cancer Prostate cancer Past Surgical History Surgical History (Updated 05/31/23 @ 10:27 by Cheyanne Green PA-C) H/O oral surgery Gum surgery H/O total hysterectomy History of arthroscopy Left knee History of back surgery x2, removal of Schwannomas (1997 + 1998); pt states that with 1997 surgery " and was brought back with defibrillator." she states staff at hospital advised her it was due to a staff error, unsure of any available details/no available records. She states subsequent surgery 1998 went well. History of colonoscopy History of dilatation and curettage History of ear surgery "Water removed" from ear History of esophagogastroduodenoscopy (EGD) History of revision of total replacement of left knee joint (~01/11/21) LMA#4 igel + PNB. History of tonsillectomy and adenoidectomy History of tooth extraction Hx of cataract extraction Hx of total knee replacement (2001) Left Past Anesthesia History Other (jm-operative cardiac arrest(see above, per pt, staff advised it was due to an error); post-op confusion; perioperative renal failure; mother slow to wake) History of PONV No Hx of PONV and No Hx of Motion Sickness Social History Smoking Status: Never smoker Do You Dip or Chew Tobacco: No Hx Alcohol Use: No Hx Substance Use: No substance use type: does not use Review of Systems Patient denies chest pain, shortness of breath, dyspnea on exertion, snoring, witnessed apneas, fever, chills, cough, wheezing, dizziness, lightheadedness, presyncope including with exertion, or palpitations. Physical Exam Vital Signs Vitals BP 143/94 P 46 TEMP 97.8 SP02 97% on RA RESP 17 Physical Patient resting comfortably in chair in no acute distress, alert and oriented, responding appropriately throughout visit Full cervical extension range of motion without pain TMD 3.5 finger breadths Mallampati Score 2 Dentition: several caps and upper side implants, denies chipped or loose teeth, caps or bridges Lungs: normal respiratory effort. Good air movement, clear throughout to auscultation, no adventitious breath sounds Cardiac: bradycardiac rate, regular rhythm, no murmurs noted Carotid arteries: negative bruit bilat Lab Results Anesthesia Preop Results Results Anesthesia Widget: WBC 6.19 K/ul (4.8-10.8) 05/31/23 Hgb 14.3 g/dl (12.0-16.0) 05/31/23 Hct 42.6 % (37.0-47.0) 05/31/23 Plt 264 K/uL (130-400) 05/31/23 Na 138 mmol/L (136-145) 05/31/23 K 4.1 mmol/L (3.5-5.1) 05/31/23 Cl 105 mmol/L (98-107) 05/31/23 CO2 25 mmol/L (21-32) 05/31/23 BUN 42 mg/dl (6-23) H 05/31/23 Creat 1.37 mg/dl (0.6-1.2) H 05/31/23 Glucose Level 95 mg/dl (70-99(Fasting)) 05/31/23 Blood Type O Positive 05/31/23 Antibody Screen NEGATIVE 05/31/23 Testing Electrocardiogram Date: 05/31/23 Marked sinus bradycardia, rate 44 bpm Minimal voltage criteria for LVH, may be normal variant Junctional ST depression, probably normal No significant change vs 03/04/21 EKG Chest X-Ray Date: 05/31/23 Cardiomegaly with no active disease in the chest Echocardiogram Date: 03/19/23 EF 60-65% Mild cLVH No regional wall motion abnormalities Moderate to severe valvular aortic stenosis (CARRILLO 1 cm2, mean pressure gradient 17.6 mmHg) RVSP 40-50 mmHg Moderate tricuspid regurgitation Aortic stenosis may have progressed compared with 02/22/22 study Grade I diastolic dysfunction
[2023-06-26] MEDS ORDERED: ROPIVACAINE 0.5% HCL/PF 150 MG, BUPIVACAINE 0.75% MPF 20 ML, EPINEPHrine 0.15 MG, dexAM... INFIL SCH (06:00)
[2023-06-26] MEDS ORDERED: LR 60ML/HR IV SCH (06:00)
[2023-06-26] MEDS ORDERED: ceFAZolin 2000MG 2,000 MG/15 ML SYR IV SCH (06:00)
[2023-06-26] MEDS ORDERED: LR 15ML/HR IV SCH (06:00)
[2023-06-26] MEDS ORDERED: TRANEXAMIC ACID 1,000 MG **IV Pre-op IV SCH (06:00)
[2023-06-26] MEDS ORDERED: MIDAZOLAM HCL 1 MG/ML 2ML VIAL ONE (06:16)
[2023-06-26] MEDS ORDERED: PROPOFOL IV EMULSION 10 MG/ML 20 ML VIAL IV ONE (06:18)
[2023-06-26] MEDS ORDERED: GLYCOPYRROLATE 0.2 MG/ML VIAL ONE (06:18)
[2023-06-26] MEDS ORDERED: LIDOCAINE 2% 2 ML VIAL/AMP(20MG/ML) INFIL ONE (06:18)
[2023-06-26] MEDS ORDERED: ONDANSETRON INJ 2 MG/ML 2 ML VIAL ONE (06:18)
--- NOTE | 2023-06-26 06:23 | History & Physical Bridge Note ---
Date of Service June 26, 2023 History & Physical Bridge Note I have examined the patient, reviewed the History & Physical and in the interval since the performance of the History & Physical I have noted the following changes of clinical significance: consent and site verified.no changes noted
[2023-06-26 06:27] LABS: Partial Thromboplastin Ratio 1.1; Partial Thromboplastin Time 31.9 Seconds (21.0-31.0); Prothrombin Time 11.1 Seconds (9.0-12.0)
[2023-06-26] MEDS ORDERED: ROPIVACAINE 0.5% 5 MG/ML 30 ML VIAL ONE (06:31)
[2023-06-26] MEDS ORDERED: fentaNYL citrate PF 100 MCG/2 ML VIAL ONE ×2 (06:37→07:37)
[2023-06-26] MEDS ORDERED: KETAMINE 50 MG/5 ML SYRINGE ONE (06:39)
[2023-06-26] MEDS ORDERED: ePHEDrine sulfate 50 MG/ML AMP IV PRN (06:43)
[2023-06-26] MEDS ORDERED: ONDANSETRON INJ 2 MG/ML 2 ML VIAL IV PRN ×2 (06:43→10:39)
[2023-06-26] MEDS ORDERED: ATROPINE SULFATE 0.1 MG/ML 10ML SYR IV PRN (06:43)
[2023-06-26] MEDS ORDERED: VANCOMYCIN HCL 1000MG/20ML VIAL ONE (06:54)
[2023-06-26] MEDS ORDERED: ORTHO JOINT ANESTHETIC ONE (06:54)
--- NOTE | 2023-06-26 08:37 | Operative Report ---
Post Operative Report Pre & Post Diagnosis Operation Date: 06/26/23 07:00 Pre-Op Diagnosis: Right Knee Degenerative Joint Disease Post-Op Diagnosis: Right Knee Degenerative Joint Disease I identified the patient and participated in the time-out.: Yes Procedure Operation Date: 06/26/23 07:00 Actual Procedures p Right Total Knee Arthroplasty cemented (Right) - Yousif Licea MD Surgeon Yousif Licea MD Flattening Press Operator JUAN LUIS/Almaz Estimated Blood Loss 25 Findings Consistent with Post-Op Diagnosis Severe lateral compartment disease with osteonecrotic flap patellofemoral disease severe medial compartment relatively well-preserved Fluids See anesthesia report Specimens Bone pathology Drains None Complications None Indications Severe pain and swelling failed conservative management Description of Procedure After the patient was appropriate notified site verified consent verified antibiotics confirmed to be given the knee was examined revealing extension to - 5 flexion to 95 there was moderate swelling neurovascular check preop was normal skin was healthy. She was then prepped and draped in the usual fashion. Tourniquet inflated to 275 mmHg for exsanguination limb with a rubber band for total of 53 minutes. Midline exposure was utilized. Parapatellar arthrotomy was performed. Extensive synovectomy was required. Medial lateral appropriate releases performed. The knee was then flexed the defect could be seen on the distal femur laterally. There was a 2-1/2 cm x 1 and half centimeters the entire weightbearing surface. The patella was grade 4. The medial compartment is relatively well-preserved. Osteophytes were resected the distal femur was then entered and the cruciates resected tibia subluxated and the menisci resected. Distal femur was then resected 14 mm proximal tibia 4 mm the extension gap was excellent. Femur was sized between a 3 and a 2-1/2 it was measured 3 cut 2-1/2 no significant notching occurred. Flexion gap was then checked and was excellent. The box cut was then made to size 2 and half it well the tibia was then broached and reinforced for size 2-1/2. The 12-1/2 spacer was best. There was no flexion gap instability with this extension was good varus valgus stability was excellent the patella tracked well. Patella was then resected leaving a 14 mm. 35 button trial was then seated after drilling holes made. Everything tracked well. The Ortho mix was then injected all about the knee including posteriorly knee was then soaked in Betadine for 3 minutes and then after that irrigated and the permanent cemented in position tibia femur patella in that order a 12 minutes the tourniquet deflated at 14 minutes knee flexed no cement removal was required. Then the wound was irrigated 1 final time and then the vancomycin powder placed based on her risk factor from her other side. Was 1 g. Permanent spacer was then seated the knee reduced and closed at 40 degrees of flexion using #2 Vicryl 2-0 Vicryl and standstill clips. Summary of implants size 2 and half right femur posterior cruciate substituting size 2-1/2 tray rotating platform size 35 patella size 2 and half x12.5 rotating platform insert. Patella again was a 35 2 g Rx to be tube boxes of cement were utilized with gentamicin. EBL was 25 cc or less crystalloid per anesthesia DVT prophylaxis per protocol pathology pending on bone. I attest to the content of the Intraoperative Record and any orders documented therein. Any exceptions are noted below.
--- NOTE | 2023-06-26 08:37 | Post Operative Brief Note ---
Immediate Post Op Note v1 Date of Surgery June 26, 2023 Pre & Post Diagnosis Operation Date: 06/26/23 07:00 Pre-Op Diagnosis: Right Knee Degenerative Joint Disease Post-Op Diagnosis: Right Knee Degenerative Joint Disease I identified the patient and participated in the time-out.: Yes Procedure Operation Date: 06/26/23 07:00 Actual Procedures p Right Total Knee Arthroplasty(Right) - Yousif Licea MD Surgeon Yousif Licea MD Net Programmer JUAN LUIS/Almaz Estimated Blood Loss 25 Findings Consistent with Post-Op Diagnosis Severe lateral compartment disease with large osteonecrotic flap grade 4 patellofemoral joint medial compartment relatively well-preserved Fluids See anesthesia report Complications None
--- NOTE | 2023-06-26 08:44 | Orthopedic Progress Note ---
Date of Service June 26, 2023 Assessment & Plan (1) Status post right knee replacement: Plan Continue care pathway for total knee replacement. Orthopedic Progress Note Tolerated right total knee replacement. Woke up from anesthesia with no issues. No nausea vomiting chest pain shortness of breath fever chills. Vital signs are stable she is afebrile. Neurovascular check grossly normal. Wound dressing clean dry and intact. Assessment doing well status post right total knee replacement check x-rays in recovery room. DVT prophylaxis per protocol. was notified by phone.
--- NOTE | 2023-06-26 08:44 | Discharge Summary ---
Date of Service June 27, 2023 Admission HPI Per Admitting Provider Severe right knee pain failed conservative management Principal Diagnosis Osteoarthritis valgus knee right Discharge Data Allergies Allergy/AdvReac Type Severity Reaction Status Date / Time tramadol Allergy Severe Hallucinati Verified 06/26/23 05:28 ons amitriptyline AdvReac Severe Hallucinati Verified 06/26/23 05:28 ng cyclobenzaprine AdvReac Severe Hallucinati Verified 06/26/23 05:28 ons gabapentin AdvReac Severe Hallucinati Verified 06/26/23 05:28 ons hydrocodone AdvReac Severe Hallucinati Verified 06/26/23 05:28 ons NSAIDS (Non-Steroidal AdvReac Severe renal Verified 06/26/23 05:28 Anti-Inflamma failure donepezil AdvReac Intermediate depression Verified 06/26/23 05:28 perphenazine AdvReac Intermediate Hallucinati Verified 06/26/23 05:28 ng Vaccinations None Consultations None Procedures Performed Operation Date: 06/26/23 07:00 Actual Procedures p Right Total Knee Arthroplasty cemented (Right) - Yousif Licea MD Ordered Studies 06/26/23 05:00 US - OR guided needle placemen Routine Diabetes Follow up N/A Hospital Course (1) Status post right knee replacement: Plan Continue care pathway for total knee replacement. Total Time Total Time Spent Total Time Spent (In Minutes): 5 Discharge Plan Discharge Items Reason For Visit: Right Knee Degenerative Joint Disease Discharge Diagnosis: Right knee status post total knee replacement Condition on Discharge: Good Activity: Per Instructions section Lifting: Gradually increase as tolerated Bathing: Keep incision dry Sexual Activity: Wait until after follow-up appointment Exercise/Sports: Wait until after follow-up appointment Call non-emergency contact if: you have any medication questions, your pain is not controlled, your temperature is above 101.5, your wound has increased redness, your wound has increased drainage and your wound pain has increased Follow-up/Referrals: Mey Gruber DO [Primary Care Provider] - Addtl Attending Provider Instructions: New Medicine: * You will likely be taking one or more of these medications: 1. Percocet - Take, as directed, when you need it, every four to six hours to control your pain. 2. Iron Sulfate - Take three times each day for the month after surgery to help you replace the blood lost during surgery. 3. Eliquis - Thins your blood to lessen the chance of forming a blood clot. * The most common side effects of pain medicine and iron are nausea and constipation. If nausea or constipation is too much of a problem or if you have any questions about your new medicines or doses, call [facility] at . We will try to help you manage these issues. "VERY IMPORTANT TO READ AND REVIEW" Blood Clots and Blood Thinning Medicine: * You are given Eliquis during the immediate post-operative period to lessen the risk of blood clots forming in your legs and/or lungs. It is usually given for six weeks after surgery. Pain: * The immediate post-operative period after knee replacement surgery is often quite painful. * You are given a prescription for pain medicine. You should take it, as directed, when you need it, especially before physical therapy and before going to bed. Pain that interferes with sleep is very common and can last several months. * You will likely need pain medicine for the first four to six weeks. It will not stop all of the pain. The pain will lessen and as you feel better, you may change to milder pain medicine such as Tylenol. * The most common side effects of pain medicine are nausea and constipation, so don't take more than you need. Physical Therapy: * You will have physical therapy two or three times each week for four to six weeks after your surgery in order to regain your knee range of motion and to retrain your knee to work properly. * It is just as important to make sure you are getting your knee perfectly straight as it is to regain your knee bend. * Taking a pain pill an hour before therapy can help you have a more productive and comfortable therapy session if needed. Home Exercise: * You were shown a series of exercises (heel props, heel slides, etc.) in the hospital. Do these exercises three to four times each day including the exercises you were shown in physical therapy. Walking: * Get up and walk several times each day. For the first four weeks, try not to stand or walk for more than one hour at a time. If you do stand or walk for more than one hour, you will not hurt anything, but your knee and leg will likely swell. * As you feel comfortable, you may change from the walker or crutches to a cane and then to independent walking. SELF CARE INSTRUCTIONS AFTER TOTAL KNEE REPLACEMENT A. You may need to continue a physical therapy program after discharge from the hospital. There are several options available to you. Your doctor will assist you in selecting the best one for you. 1. An out-patient facility 2 to 3 times a week for therapy or home therapy. 2. Continue working on all exercises taught to you in the hospital. Your goals should be to increase bending of your knee to 90 degrees and beyond and to fully straighten your knee. B. You may progress at your own pace from walking with a walker or crutches to a cane; then to no assistive devices. C. Make walking a part of your daily routine. Be up as much as comfortable with rest periods throughout the day. Rest with leg elevation is very important. Use the ice wrap frequently for the first 3-4 weeks. D. There are no restrictions on activities. You may ride in a car, shop, participate in labor relations supervisor and all social activities. E. Wear the long elastic stockings (JESE hose) 20 hours a day for six weeks after surgery. They can be removed several times a day for laundering and for a shower. F. Do not place a pillow behind your knee when resting. A pillow at your ankle is okay. VERY IMPORTANT TO READ AND REVIEW A. Take Eliquis (blood thinning medication) as directed by your doctor. B. There are a few signs you need to watch for after you are home. Call [facility] if you notice any of the followin. Increased severe knee pain. Some pain is expected especially when you exercise. 2. Increased swelling in your leg or knee; pain or swelling of the calf muscle in either lower leg. 3. Any fluid drainage from the incision. 4. Shortness of breath or chest pain. C. Please call [facility] at if you have any concerns or questions about your operation or recovery. The doctor or his nurse will return your call promptly. D. You must take antibiotics before dental work, bladder, bowel or other surgery. Call the office to obtain a prescription at least 2 days prior to your appointment. * CALL IF INCREASED PAIN, REDNESS, DRAINAGE OR FEVER GREATER THAT 101. * Sutures should be removed 12-14 days after surgery unless you are on chronic steroids, then it will be 14-18 days after surgery. Call your doctor if: * Temperature above 101 degrees F. * Pain not relieved by pain medicine ordered. * Increased drainage or redness from incision. * Notify your doctor with any questions or concerns. Use your knee immobilizer when out of bed on and Saturday. It may be discontinued entirely on Saturday morning. Use your walker when ambulating Follow-up in the office in 2 weeks as scheduled for staple removal with Donnie Ice and elevate the knee frequently to reduce pain and swelling Pending Studies at Discharge: Yes (Bone pathology) Stand-Alone Forms: My [facility] Medications and DC Order Prescriptions: No Action amlodipine 5 mg tablet 5 mg PO BID Qty: 180 3RF fenofibrate 160 mg tablet 160 mg PO DAILY Qty: 90 2RF spironolactone 25 mg tablet 25 mg PO BID Qty: 180 3RF pravastatin 80 mg tablet 80 mg PO DAILY Qty: 90 3RF Patient Comments: TAKES HS diclofenac sodium 3 % gel 1 applic topical BID PRN (Reason: pain) Qty: 100 0RF hydrochlorothiazide 25 mg tablet 25 mg PO BID Qty: 180 1RF multivitamin [Multiple Vitamins] Tablet 1 tab PO DAILY Admission Data Admit Date/Time: 06/26/23 08:58 Attending Provider: Yousif Licea Admit Provider: Yousif Licea Primary Care Provider: Mey Gruber Other Providers: [facility],Home Health
--- NOTE | 2023-06-26 08:48 | Operative Report ---
Post Operative Report Pre & Post Diagnosis Operation Date: 06/26/23 07:00 Pre-Op Diagnosis: Right Knee Degenerative Joint Disease Post-Op Diagnosis: Right Knee Degenerative Joint Disease I identified the patient and participated in the time-out.: Yes Procedure Operation Date: 06/26/23 07:00 Actual Procedures p Right Total Knee Arthroplasty(Right) - Yousif Licea MD Surgeon Yousif Licea MD Public Speaker JUAN LUIS/Almaz Estimated Blood Loss 25 Findings Consistent with Post-Op Diagnosis Same as postop diagnosis. Specimens The removed tissue (bone, cartilage) was sent to pathology. Description of Procedure Please see detailed operative note. I attest to the content of the Intraoperative Record and any orders documented therein. Any exceptions are noted below.
--- NOTE | 2023-06-26 08:52 | Operative Report ---
Post Operative Report Pre & Post Diagnosis Operation Date: 06/26/23 07:00 Pre-Op Diagnosis: Right Knee Degenerative Joint Disease Post-Op Diagnosis: Right Knee Degenerative Joint Disease I identified the patient and participated in the time-out.: Yes Procedure Operation Date: 06/26/23 07:00 Actual Procedures p Right Total Knee Arthroplasty(Right) - Yousif Licea MD Surgeon RUBEN Licea MD Associate Dean JUAN LUIS/Almaz MCGOWAN Estimated Blood Loss 25 Findings Consistent with Post-Op Diagnosis see operative report Specimens see operative report Drains none Complications none Disposition Accompanied Patient To Recovery: Yes Indications This 77 year old female presented to the office with complaints of persisting right knee pain. Symptoms have been ongoing for years. She had tried conservative care measures without lasting improvement. She elected to proceed with surgical invention after being educated about potential risks and outcomes. Preoperative imaging was obtained. Description of Procedure The patient was administered a regional block and then taken to the operating room where she was given general anesthesia. She was prepped and draped in the usual sterile fashion. Please see Dr. Licea's operative report for specifics of the procedure. I was present for the entire case from initial patient positioning through final wound closure. Assistance was provided in tissue retraction, hemostasis, trial implant placement, final implant placement, and final wound closure. The patient was taken to the recovery room in satisfactory condition. I attest to the content of the Intraoperative Record and any orders documented therein. Any exceptions are noted below.
[2023-06-26] MEDS: fentaNYL citrate PF 100 MCG/2 ML VIAL IV PRN ×3 (09:00→09:15)
[2023-06-26] MEDS: HYDROmorphone INJ 1 MG/ML SYRINGE IV PRN ×5 (09:20→09:56)
--- NOTE | 2023-06-26 10:32 | XRay Report ---
XR knee RT 1 or 2V routine CLINICAL HISTORY: S/P R TKA TECHNIQUE: 2 views of the right knee were obtained. Comparison: Comparison is made to right knee radiographs 04/12/2023 FINDINGS: Patient is status post total knee arthroplasty with expected postsurgical changes including soft tiss ue swelling and subcutaneous emphysema. No periarticular lucency or hardware fracture is seen. IMPRESSION: Expected postoperative appearance status post placement of total knee arthroplasty. ACT 112: Negative or not required by law. Electronically signed by: Filipe Pederson M.D. 06/26/2023 10:31 AM
[2023-06-26] MEDS ORDERED: VANCOMYCIN CONSULT ACTIVE PRN (10:39)
[2023-06-26] MEDS ORDERED: METOCLOPRAMIDE HCL INJ 5 MG/ML 2 ML VIAL IV PRN (10:39)
[2023-06-26] MEDS ORDERED: ALUMINUM/MAGNESIUM SUSP 30 ML UDC PO PRN (10:39)
[2023-06-26] MEDS ORDERED: SODIUM CHLORIDE 0.9% 1,000 ML IV SCH (10:39)
[2023-06-26] MEDS ORDERED: bisacodyL 10 MG SUPP PR PRN (10:39)
[2023-06-26] MEDS ORDERED: diphenhydrAMINE 50 MG/ML VIAL IV PRN (10:39)
[2023-06-26] MEDS ORDERED: MAGNESIUM HYDROXIDE SUSP 30 ML UDC PO PRN (10:39)
[2023-06-26] MEDS ORDERED: NALOXONE HCL 0.4 MG/1 ML VIAL/CARP IV PRN (10:39)
[2023-06-26] MEDS ORDERED: HYDROmorphone INJ 0.5 MG/0.5 ML SYR IV PRN (10:39)
--- NOTE | 2023-06-26 10:49 | Anesthesiology Progress Note ---
Date of Service June 26, 2023 Anesthesia Post Procedure Vital Signs Vital Signs: Temp Pulse Pulse Resp BP Pulse Ox O2 Del Method 06/26/23 10:05 36.4 C L 62 18 143/79 H 96 Nasal Cannula 06/26/23 09:55 66 23 151/68 H 94 Nasal Cannula 06/26/23 09:45 70 22 162/91 H 95 Nasal Cannula 06/26/23 09:35 70 20 154/80 H 96 Nasal Cannula 06/26/23 09:25 60 18 165/89 H 97 Oxymask 06/26/23 09:15 58 L 20 158/78 H 97 Oxymask 06/26/23 09:05 64 18 147/82 H 99 Oxymask 06/26/23 08:55 66 15 146/80 H 97 Oxymask 06/26/23 08:44 36.2 C L 82 14 167/92 H 95 Oxymask 06/26/23 05:35 36.5 C 53 L 20 150/78 H 98 Room Air O2 Flow Rate 06/26/23 10:05 2 06/26/23 09:55 2 06/26/23 09:45 2 06/26/23 09:35 2 06/26/23 09:25 4 06/26/23 09:15 6 06/26/23 09:05 6 06/26/23 08:55 6 06/26/23 08:44 6 06/26/23 05:35 Pain Intensity Right Knee: Pain Intensity: 5 Transfer of Care Handoff Completed per policy Notes Mental Status: alert / awake / arousable and participated in evaluation Patient Amnestic to Procedure: Yes Nausea / Vomiting: adequately controlled Pain: adequately controlled Airway Patency, RR, SpO2: stable & adequate BP & HR: stable & adequate Hydration State: stable & adequate Anesthetic Complications: no major complications apparent and Pt Satisfied with anesthetic care
[2023-06-26] MEDS: FENOFIBRATE NANOCRYSTALLIZED 145 MG TABLET PO SCH (11:22)
[2023-06-26] MEDS: hydroCHLOROthiazide 25 MG TAB PO SCH ×2 (11:22→20:18)
[2023-06-26] MEDS: PRAVASTATIN SOD 40 MG TAB PO SCH (11:22)
[2023-06-26] MEDS: SPIRONOLACTONE 25 MG TAB PO SCH ×2 (12:52→20:19)
[2023-06-26] MEDS: MULTIVITAMIN TAB PO SCH (12:52)
[2023-06-26] MEDS: DOCUSATE SODIUM 100 MG CAP PO SCH ×2 (12:52→20:19)
[2023-06-26] MEDS: amLODIPine BESYLATE 5 MG TAB PO SCH ×2 (12:52→20:19)
[2023-06-26] MEDS ORDERED: VANCOMYCIN HCL 1,250 MG in SODIUM CHLORIDE 0.9% 250 ML IV ONE (13:30)
--- NOTE | 2023-06-26 14:52 | Orthopedic Progress Note ---
Date of Service June 26, 2023 Assessment & Plan Admission and Anticipated Discharge Date Admission Date: June 26, 2023 Orthopedic Progress Note Sitting up in bed comfortably denies chest pain shortness of breath fever chills nausea vomiting or headache. Vital signs are stable she is afebrile. Neurovascular check femoral sciatic nerve is normal. Can do a straight leg raise. Advised her to start doing heel slides which he gets to about 50 or 60 degrees. Actively dorsi and plantar flexes her toes and ankle. Calves are nontender. Wound dressing clean dry and intact. INR within normal limits. Assessment doing well. Needs to get up out of bed needs to get in the chair needs to ambulate. Saline lock IV. Encourage p.o. Encourage range of motion exercises. Plan is to discharge home tomorrow after PT OT. Case management needs to get involved.
[2023-06-26] MEDS ORDERED: TRANEXAMIC ACID / 0.7% NACL 1,000 MG/100 ML BAG IV SCH (15:00)
[2023-06-26] MEDS: ACETAMINOPHEN 500 MG TAB PO SCH ×2 (15:05→22:17)
[2023-06-26] MEDS: ceFAZolin 2000MG 2,000 MG/15 ML SYR IV SCH ×2 (15:40→22:17)
[2023-06-26] MEDS: oxyCODONE HCL IR 5 MG TAB (IMMEDIATE RELEASE) PO PRN ×2 (16:08→20:18)
[2023-06-26] MEDS: FERROUS GLUCONATE 324 MG TAB PO SCH (16:09)
[2023-06-26] MEDS: ASCORBIC ACID 500 MG TAB PO SCH (16:09)
[2023-06-26] MEDS ORDERED: SENNA 8.6 MG TAB PO SCH (21:00)
[2023-06-27] MEDS: oxyCODONE HCL IR 5 MG TAB (IMMEDIATE RELEASE) PO PRN ×3 (03:31→11:11)
[2023-06-27] MEDS: ACETAMINOPHEN 500 MG TAB PO SCH (05:41)
--- NOTE | 2023-06-27 06:14 | Orthopedic Progress Note ---
Date of Service June 27, 2023 Assessment & Plan Admission and Anticipated Discharge Date Admission Date: June 26, 2023 Orthopedic Progress Note Postop day #1 status post right total knee replacement. Patient did not sleep well otherwise not having any real issues. For some reason her knee immobilizer is on. I told her she does not need to have that on when she is in bed. That is been described to the nursing in past but for what ever reason to keep putting it back on. It is only necessary when she is walking. Vital signs are stable she is afebrile. Neurovascular check from the sciatic nerve is intact. Calves are nontender. Wound dressing clean dry and intact. Range of motion 0 35 to 40 degrees. However she has been in the knee immobilizer all night. Vital signs are stable at this point time doing well will discharge home today after PT OT. Begin Postop anticoagulation this morning at 9:00. Case management to finalize home needs. Follow-up in 2 weeks.
[2023-06-27 07:20] LABS: Hematocrit (blood only) 36.1 % (37.0-47.0); Hemoglobin 12.1 g/dl (12.0-16.0); Mean Corpuscular Hemoglobin 30.5 pg (25.0-34.0); Mean Corpuscular Hgb Conc 33.5 g/dL (32.0-36.0); Mean Corpuscular Volume 90.9 fL (80.0-100.0); Mean Platelet Volume 9.3 fL (9.4-12.4); Platelet Count 227 K/uL (130-400); RDW Coefficient of Variation 12.9 % (11.5-14.5); RDW Standard Deviation 43.2 fL (36.4-46.3); Red Blood Count 3.97 M/uL (4.20-5.40); White Blood Count 10.74 K/ul (4.8-10.8)
[2023-06-27] MEDS: ASCORBIC ACID 500 MG TAB PO SCH (07:31)
[2023-06-27] MEDS: DOCUSATE SODIUM 100 MG CAP PO SCH (07:32)
[2023-06-27] MEDS: SPIRONOLACTONE 25 MG TAB PO SCH (07:32)
[2023-06-27] MEDS: amLODIPine BESYLATE 5 MG TAB PO SCH (07:33)
[2023-06-27] MEDS: MULTIVITAMIN TAB PO SCH (07:33)
[2023-06-27] MEDS: hydroCHLOROthiazide 25 MG TAB PO SCH (07:33)
[2023-06-27] MEDS: FENOFIBRATE NANOCRYSTALLIZED 145 MG TABLET PO SCH (07:34)
[2023-06-27] MEDS: FERROUS GLUCONATE 324 MG TAB PO SCH (07:34)
[2023-06-27] MEDS: PRAVASTATIN SOD 40 MG TAB PO SCH (07:36)
[2023-06-27 07:37] LABS: Calcium 9.1 mg/dl (8.6-10.3); Creatinine Clr Calc Pharmacy 41.7 ml/min; Est GFR (African American) 49.6 ml/min; Est GFR (Non-African American) 42.8 ml/min; Potassium 3.7 mmol/L (3.5-5.1)
[2023-06-27] MEDS ORDERED: dexAMETHasone 10 MG in SYRINGE 0 ML IV SCH (08:00)
[2023-06-27] MEDS ORDERED: APIXABAN 2.5 MG TAB PO SCH (09:00)
--- NOTE | 2023-06-27 09:10 | Orthopedic Progress Note ---
Date of Service June 27, 2023 Assessment & Plan (1) Status post right knee replacement: Plan: The patient was educated regarding today's findings. Her postsurgical dressings were changed by me. A new pressure dressing was applied along with her JESE hose. She may leave this in place over the weekend. It can be checked by home health nursing on Saturday and changed as needed for soiling. It can also be left in place until she is seen in the office in 2 weeks if it remains clean. Use the knee immobilizer when out of bed today and tomorrow. It can be discontinued entirely on Saturday. Discharge to home today with home health services after PT and OT this morning. Prescriptions for Percocet and Eliquis were sent to her [facility] pharmacy. Written discharge instructions were provided. Follow-up in the office in 2 weeks with me as scheduled for staple removal. Call the office with any other concerns. Admission and Anticipated Discharge Date Admission Date: June 26, 2023 Subjective This 77-year-old female is seen today in her room. She is 1 day status post right total knee arthroplasty. She states she did not sleep well last evening. She did have some pain overnight as well as this morning. It was relieved with 2 tablets of Percocet. She states she has not become dizzy, goofy, or nauseated with the Percocet. She thinks it will work just fine for postoperative management. She feels ready to go home and get in her own bed. She did finish her breakfast this morning. She has not participated with therapy yet. Patient states she had her knee immobilizer on all evening while in bed. This is despite the clear order stating it is to be on when out of bed. She denies any chest pain, shortness of breath, nausea, vomiting, or abdominal pain. Review of Systems Review of Systems: Unchanged from yesterday. Physical Exam Physical Exam: General: Well-developed, well-nourished, elderly female, in no acute distress. Sitting in bed. Alert and oriented. Conversive. Skin: Warm and dry with good turgor. No rashes. Postsurgical dressing is in place on the right leg. Upon removal, she has scant dried blood on the most inner dressings. No active bleeding. Surgical incision is closed with usama. Minimal edema. No ecchymosis yet. No active bleeding. Musculoskeletal: Right knee evaluation reveals the above-stated surgical incision. She is able to extend her quad and perform a straight leg raise. She has full terminal extension. Flexion to around 45 degrees this morning. She has intact motor function to the ankle and toes. No discomfort with palpation of her calf. She complains of discomfort with palpation over her proximal thigh in the area of the surgical tourniquet. She also describes soreness around her knee. Neurologic: Gross sensation is intact across the right leg by soft touch. Peripheral pulses are 2+. Results & Data Vital Signs (Past 12 Hours) Vital Signs Temp Pulse Resp BP Pulse Ox O2 Del Method 06/27/23 07:23 36.6 C 50 L 16 143/74 H 94 Room Air 06/27/23 03:28 36.4 C L 59 L 18 164/80 H 94 Room Air 06/26/23 23:09 36.3 C L 54 L 17 168/74 H 94 Room Air Laboratory Results CBC obtained this morning shows a white count of 10.74. H&H of 12.1 and 36.1. Platelets 227,000. PRP shows a sodium of 135, potassium 3.7, chloride 105, CO2 23, anion gap of 7. BUN 29 and creatinine 1.21. These are consistent and slightly improved from her normal baseline. Glucose 104. Calcium normal at 9.1.
--- OUTSIDE RECORDS SUMMARY | 2023-06-28 00:38 | External Medical Summary | Continuity of Care Document ---
Author Name Unknown Organization [id number] Address [address] [place] [phone] Care Team Providers Care Criminal Profiler Name Role Phone Michaelciara Mey Mae Primary Care Physician [phone] Encounter [facility] [id number] Date(s): 04/12/23 - 04/12/23 [facility] [address] [place] [id number] [facility] [address] [place] [id number] Encounter Diagnosis Right knee DJD(Discharge Diagnosis) - 04/12/23 Spondylolisthesis, lumbar region(Discharge Diagnosis) - 04/12/23 Discharge Disposition: Home or Self Care Attending Physician: JUAN M Muse, Donnie Mejia Referring Physician: DO Galicia Kevin Allergies, Adverse Reactions, Alerts Substance Reaction Severity Status gabapentin Shaking Active Flexeril Hallucinations Active Triavil Hallucinations Active HYDROcodone Nausea Shaking Active Immunizations Given and Recorded Vaccine Date Status Refusal Reason zoster vaccine, inactivated 04/13/18 Recorded Medications amLODIPine 5 mg oral tablet Start: 04/12/23 8:55:00 EDT, 1 tab, PO, Daily Start Date: 04/12/23 Status: Ordered atenolol 50 mg oral tablet Start: 08/31/19 7:38:47 EST, See Instructions, Disp# 90, Refills: 3, take 1 tablet by mouth once daily, Pharmacy: [facility]. Start Date: 08/31/19 Status: Ordered escitalopram 5 mg oral tablet Start: 01/22/20 15:02:00 EDT, 1 tab, PO, Daily, Disp# 30 tab, Refills: 2, Pharmacy: [facility]. Start Date: 01/22/20 Status: Ordered famotidine 20 mg oral tablet Start: 01/22/20 15:00:00 EDT, 1 tab, PO, qhs, Disp# 30 tab, Refills: 3, Pharmacy: [facility]. Start Date: 01/22/20 Status: Ordered fenofibrate 160 mg oral tablet Start: 04/12/23 8:56:00 EDT, 1 tab, PO, Daily Start Date: 04/12/23 Status: Ordered fenofibrate 160 mg oral tablet Start: 04/12/23 8:57:00 EDT, 1 tab, PO, Daily Start Date: 04/12/23 Status: Ordered Flax Seed Oil Start: 04/12/23 8:57:00 EDT Start Date: 04/12/23 Status: Ordered Glucosamine Chondroitin Start: 04/12/23 8:56:00 EDT Start Date: 04/12/23 Status: Ordered Hair, Skin & Nails Start: 04/12/23 8:57:00 EDT Start Date: 04/12/23 Status: Ordered hydroCHLOROthiazide 25 mg oral tablet Start: 01/07/20 12:53:00 EDT, See Instructions, Disp# 90 tab, Refills: 3, take 1 tablet by mouth once daily, Pharmacy: [facility]. Start Date: 01/07/20 Status: Ordered ketorolac 10 mg oral tablet Start: 01/18/20 12:03:00 EDT, 1 tab, PO, tid, Disp# 15 tab, Refills: 0, PRN: as needed for pain, Pharmacy: [facility]. Start Date: 01/18/20 Stop Date: 01/23/20 Status: Ordered lysine Start: 04/12/23 8:57:00 EDT Start Date: 04/12/23 Status: Ordered multivitamin Start: 04/12/23 8:57:00 EDT, 1 tab, PO, Daily Start Date: 04/12/23 Status: Ordered Percocet 5 mg-325 mg oral tablet Start: 01/15/20 15:00:00 EDT, 1 tab, PO, q12h, Disp# 20 tab, Refills: 0, PRN: as needed for pain, Pharmacy: [facility]. Start Date: 01/15/20 Status: Ordered pravastatin 80 mg oral tablet Start: 04/12/23 8:56:00 EDT, 1 tab, PO, Daily Start Date: 04/12/23 Status: Ordered [place] Oil Start: 04/12/23 8:57:00 EDT Start Date: 04/12/23 Status: Ordered Shingrix intramuscular injection Start: 01/10/18 16:40:00 EDT, 0.5 mL, IM, ONCE, Disp# 1 each, Refills: 1 Start Date: 01/10/18 Status: Ordered spironolactone 25 mg oral tablet Start: 04/12/23 8:55:00 EDT, 1 tab, PO, Daily Start Date: 04/12/23 Status: Ordered Vitamin C Start: 04/12/23 8:57:00 EDT Start Date: 04/12/23 Status: Ordered vitamin E Start: 04/12/23 8:57:00 EDT Start Date: 04/12/23 Status: Ordered Mental Status 04/12/23 Barriers to Learning one year None evide nt Mandatory Health Literacy Documentation Yes Health Literacy Communication Barriers N ever Primary Language Solomon Islander Problem List Condition Confirmation Course Effective Dates Status H ealth Status Informant Acute back pain with sciatica Confirmed Active Acute cystitis Confirmed Active Acute cystitis Confirmed Active Acute upper respiratory infection Confirmed Active Alopecia Confirmed Active Anxiety Confirmed Active Benign essential HTN Confirmed Active Encounter for screening mammogram for breast cancer. Confirmed Active Chest heaviness Confirmed Active Chronic constipation Confirmed Active Chronic pain disorder Confirmed Active Dazed state Confirmed Active Dyspnea Confirmed Active Excessive weight gain Confirmed Active Hematuria, gross Confirmed Active GERD (gastroesophageal reflux disease) Confirmed Active Status post fall Confirmed Active HTN (hypertension) Confirmed Active Adult hypothyroidism Confirmed Active Insomnia Confirmed Active Low back pain Confirmed Active Right lumbar radiculopathy Confirmed Active Schwannomatosis Confirmed Active Overweight Confirmed Active Breast pain, right Confirmed Active Breast pain, left Confirmed Active Breast cancer screening Confirmed Active Facial tingling sensation Confirmed Active Suprapubic pain Confirmed Active Diagnosis Diagnosis Type Effective Dates Health Status Cl inical Service Informant Right knee DJD Discharge Diagnosis 04/12/23 Spondylolisthesi s, lumbar region Discharge Diagnosis 04/12/23 Procedures Procedure Date Related Diagnosis Body Site Status Mammogram 1 03/25/20 Completed MRI of knee 2 03/04/20 Completed Colonoscopy 3 09/04/19 Completed X-ray tomography of lumbar spine 4 08/14/19 Completed Mammogram 5 03/20/19 Completed Mammogram 6, 7 03/05/18 Completed ULTRASOUND BREAST LIMITED 8 04/01/17 Completed Bilateral mammography 9 12/04/16 C ompleted MRI of thoracic spine 10 11/06/16 Completed MRI of lumbar spine 11 11/01/16 Co mpleted EGD US EXAM DUODENUM/JEJUNUM 12 03/16/16 Completed Colonoscopy 13 11/07/09 Completed History of left knee replacement 2001 Completed History of back surgery 14 1998 Completed History of back surgery 15 1997 Completed H/O: hysterectomy 1989 Complet ed X-ray of both knees 16 Co mpleted 1No mammographic evidence of malignancy. 1 year screening is recommended. 2RIGHT KNEE Partial tear of mid to upper anterior curciate ligament. Partial tear of lower portion of posterior cruciate ligament. 3Diverticulosis. Screening colonoscopy in 5 years would be recommended in view of the family history, sooner if symptoms warrant. 4No acute fracture Multilevel disc space narrowing with spondylitic spurring and facet arthosis as detailed above. Levoscoliosis 5IMPRESSION: ACR BI-RADS CATEGORY 2: BENIGN There is no mammogrpahic evidence of malignancy. A 1 year screening mammogram is recommended(03/20/2020). The patient will receive written notification of the results. 6Ammended: Prior outside mammograms from [facility] dated 11/17/2004, 03/10/2009, 03/23/2010, 03/24/2011, 06/10/2012, 01/11/2014, 12/12/2015 became available for review. There is stable asymmetry in the posterior right breast along the prosterior nipple line on the cc view. No new suspicious masses,asynnetries, areas of architectural distortion or suspicious calcifications identified bilaterally.Recommended routine screening mammography in 1 year. 7There is no mammographic evidence of malignancy. Prior outside mammograms are currently being requested and if obtained they will be reviewed, compareed to the current exam to assess for any more subtle changes. 8normal 9normal, breast density category B (scattered fibroglandular) 10prior T11 & T12 partial laminectomies B; enhancing lesion (9 X 8 mm) in L ant. spinal canal @T12; consistent with residual/recurrent schwannoma; larger than in 2009, similar to 2013; T7/8 2mm R paracentral disc protrusion partially effaces subarachnoid space; T8/9 2mm L paracentral disc protrusion partially effaces subarachnoid space; T9/10 3mm broad-based midline disc protrusion cuases sl. fl attening of cord; T 10/11 4 mm disc protrusion centered to L of midline, causes sl flattening of cord; T11/12 2mm midline disc protrusion partially effaces ventral subarachnoid space; most of above disc problems are unchanged 11prior partial laminectomies T11 & T12; no significant change in enhancing lesion in L ant. spinal canal at T12, touches, but does not flatten cord; L2/3 annular bulge & facet OA w/mild canal stenosis, mod R & mild L foraminal stenosis; L3/4 annular bulge & facet OA w/mod. spinal canal stenosis, severe R foraminal stenosis; L4/5 anterolisthesis & facet ds., severe canal stenosis, severe L & mod. R foraminal stenosis; L5/S1 annular bulge w/ mild flattening of thecal sac, severe L & mild R foraminal stenosis, findings are similar to previous MRI 12multiple fundic glands polyps, prepyloric antral gastritis 13Essentially normal colonoscopy 14Remove tumor 15Remove tumor 16UOC 1. Right knee: Mild narrowing medial compartment small osteophytes medial compartment no fracture no other bony or osseous abnormality 2. Lucency at the tibial impant interface on AP view no significant lucency on the lateral view concern for tibial loosening no fracture noted. Vital Signs Most recent to oldest [Reference Range]: 1 Height 170 cm (04/12/23 8:53 AM) Patient Weight 84 kg (04/12/23 8:53 AM) Body Mass Index 29.07 kg/m2 (04/12/23 8:53 AM) Social History Social History Type Response Smoking Status Never smoked cigaret angelica Sex Female Patient Care team information Care Team Personnel Name: JUAN M Plascencia Lynn Position: Physician Commercial Manager Exempt - Vasc Surg Member Role: Lifetime Relationship Address: Address: [address] [place] [id number] Name: MD Yasmani, Mey Mae Position: Referring DIRECT Member Role: Primary Care Provider Address: Address: [address] [place] [address] [place] Care Team Related Persons Name: OCHOA MEZA Address: home [address] [place] [phone]
--- OUTSIDE RECORDS SUMMARY | 2023-06-28 00:38 | External Medical Summary | Continuity of Care Document ---
Author Name Unknown Organization [facility] [id number] Address [address] [place] [phone] Care Team Providers Care Consultant In Ergonomics And Safety Name Role Phone Mey Gruber Primary Care Physician [phone] Encounter [facility] [id number] Date(s): 05/13/23 - 05/13/23 [facility] [address] [place] [id number] [facility] Medicine [address] [place] [id number] Encounter Diagnosis Osteoarthritis of right knee(Discharge Diagnosis) - 05/13/23 Discharge Disposition: Home or Self Care Attending Physician: MD Vinayak, Yousif Cordova Allergies, Adverse Reactions, Alerts Substance Reaction Severity [...] 1 tablet by mouth once daily, Pharmacy: [facility]. Start Date: 08/31/19 Status: Ordered escitalopram 5 mg oral tablet Start: 01/22/20 15:02:00 EDT, 1 tab, PO, Daily, Disp# 30 tab, Refills: 2, Pharmacy: [facility]. Start Date: 01/22/20 Status: Ordered famotidine 20 mg oral tablet Start: 01/22/20 15:00:00 EDT, 1 tab, PO, qhs, Disp# 30 tab, Refills: 3, Pharmacy: [facility]. Start Date: 01/22/20 Status: Ordered fenofibrate 160 [...] 1 tablet by mouth once daily, [facility] Start Date: 01/07/20 Status: Ordered lysine Start: 04/12/23 8:57:00 EDT Start Date: 04/12/23 Status: Ordered multivitamin Start: 04/12/23 8:57:00 EDT, 1 tab, PO, Daily Start Date: 04/12/23 Status: Ordered Percocet 5 mg-325 mg oral tablet Start: 01/15/20 15:00:00 EDT, 1 tab, PO, q12h, Disp# 20 tab, Refills: 0, PRN: as needed for pain, [facility] Start Date: 01/15/20 Status: Ordered pravastatin 80 mg oral tablet Start: 04/12/23 8:56:00 EDT, 1 tab, PO, Daily Start Date: 04/12/23 Status: Ordered [place] Oil Start: 04/12/23 8:57:00 EDT Start Date: [...] Start Date: 04/12/23 Status: Ordered Mental Status 05/13/23 Barriers to Learning one year None evide nt Mandatory Health Literacy Documentation Yes Health Literacy Communication Barriers N ever Primary Language Romansh Problem List Condition Confirmation Course Effective Dates [...] lumbar radiculopathy Confirmed Active Schwannomatosis Confirmed Active Osteoarthritis of right knee Confirmed Active Overweight Confirmed Active Breast pain, right Confirmed Active Breast pain, left Confirmed Active Breast cancer screening Confirmed Active Facial tingling sensation Confirmed Active Suprapubic pain Confirmed Active Diagnosis Diagnosis Type Effective Dates Health Status Clinical Service Informant Osteoarthritis of right knee Discharge Diagnosis 05/13/23 Procedures Procedure Date Related Diagnosis Body Site [...] 14 1998 Completed History of back surgery 1997 Completed H/O: hysterectomy 1989 Complet ed [...] the results. 6Ammended: Prior outside mammograms from [facility] dated 11/17/2004, 03/10/2009, 03/23/2010, 03/24/2011, 06/10/2012, [...] consistent with residual/recurrent schwannoma; larger than in 2008, similar to 2012; T7/8 2mm R paracentral disc protrusion partially [...] concern for tibial loosening no fracture noted. Social History Social History Type Response Smoking Status Never smoked cigaret angelica Sex Female Ortho Outpt Note * Marah Soto: PERFORM, MODIFY Event Display: Ortho Outpt Note Authored Date: [id number] Name:OMI MEZA Patient Number:[id number] :1945 Date of Service:05/13/2023 CHIEF COMPLAINT: Evaluation right knee pain discuss TKA HPI: Yovana Rosas presents today forevaluation of right knee pain. Patient reports she has constant swelling and pain in her right knee. She is using topical Voltaren gel for pain which does improve her symptoms but does completely resolve. Surgical history included left TKAin [address]angelo and Revision in [address] Neumann. She would like to proceedwith right TKA. PHYSICAL EXAM: Focus on the right lower extremity Femoral and sciatic nerve function intact. Right ROM: - 5 to 95 Left ROM: 0 to 120 Ligaments stable IMPRESSION: Right knee osteoarthritis PLAN: After a lengthy discussion with the patient today regarding my above clinical findings, as well as reviewing their imaging with them, their treatment options of conservative management versus surgical intervention were discussed. - The risks, benefits, and alternatives to surgical intervention were discussed with patient. Allergies reviewed. All questions were answered. Surgery scheduling sheet provided for right total knee arthroplasty. - They will follow-up as needed to have a pre-operative history and physical examination performed. ATTESTATION: Marah Palencia, scribing for and in the presence of, Yousif Licea, on this date,05/13/2023 10:12:49. Electronic Signature on File Electronically Reviewed/Signed by: Marah Soto Author Signature Dt/Tm:05/13/2023 10:17 AM Electronically Reviewed/Signed by: Yousif Licea MD Cosigner Signature Dt/Tm: 05/13/2023 10:56 AM Agricultural Extension Agent for Clinical Affairs, [facility] Professor in Orthopaedics Mushroom Farmer, [facility] Medicine Patient Care team information Care Team Personnel Name: JUAN M Plascencia Lynn Position: Physician Graphics Coordinator Exempt - Vasc Surg Member Role: Lifetime Relationship Address: Address: [address] [place], [place] [id number] Name: MD Gruber Cara M Position: Referring DIRECT Member Role: Primary Care Provider Address: Address: [address] [place] [address] Care Team Related Persons Name: OCHOA MEZA Address: home [address] [place] [phone]
--- OUTSIDE RECORDS SUMMARY | 2023-06-28 00:38 | External Medical Summary | Continuity of Care Document ---
Author Name Unknown Organization [facility] [place] [id number] Address [address] [place] [address] [id number] Care Team Providers Care Professional Advisor Name Role Phone Michaelciara Mey Tu Primary Care Physician [phone] Encounter [facility] [id number] Date(s): 05/31/23 - 05/31/23 [facility] [address] [id number] [facility] [address] [place] [id number] Encounter Diagnosis Right knee DJD(Discharge Diagnosis) - 05/31/23 Discharge Disposition: Home or Self Care Attending Physician: JUAN M Muse, Donnie Mejia Referring Physician: MD Vinayak, Yousif Cordova Allergies, Adverse Reactions, Alerts Substance Reaction Severity Status gabapentin Shaking Active Flexeril Hallucinations Active Triavil Hallucinations Active HYDROcodone Nausea Shaking Active Immunizations Given and Recorded Vaccine Date Status Refusal Reason zoster vaccine, inactivated 04/13/18 Recorded Medications amLODIPine 5 mg oral tablet Start: 04/12/23 8:55:00 EDT, 2 tab, PO, Daily Start Date: 04/12/23 Status: Ordered atenolol 50 mg oral tablet Start: 08/31/19 7:38:47 EST, See Instructions, Disp# 90, Refills: 3, take 1 tablet by mouth once daily, Pharmacy: [facility]. Start Date: 08/31/19 Status: Ordered calcium with vitamin D 500 mg Start: 05/31/23 9:08:00 EDT Start Date: 05/31/23 Status: Ordered escitalopram 5 mg oral tablet Start: 01/22/20 15:02:00 EDT, 1 tab, PO, Daily, Disp# 30 tab, Refills: 2, Pharmacy: [facility]. Start Date: 01/22/20 Status: Ordered famotidine 20 mg oral tablet Start: 01/22/20 15:00:00 EDT, 1 tab, PO, qhs, Disp# 30 tab, Refills: 3, [facility] Start Date: 01/22/20 Status: Ordered fenofibrate 160 [...] 1 tablet by mouth once daily, [facility] Start Date: 01/07/20 Status: Ordered lysine Start: 04/12/23 8:57:00 EDT Start Date: 04/12/23 Status: Ordered multivitamin Start: 04/12/23 8:57:00 EDT, 1 tab, PO, Daily Start Date: 04/12/23 Status: Ordered Percocet 5 mg-325 mg oral tablet Start: 01/15/20 15:00:00 EDT, 1 tab, PO, q12h, Disp# 20 tab, Refills: 0, PRN: as needed for pain, Pharmacy: [facility] [employer] [facility] Start Date: 01/15/20 Status: Ordered pravastatin 80 mg oral tablet Start: 04/12/23 8:56:00 EDT, 1 tab, PO, Daily Start Date: 04/12/23 Status: Ordered Loma Mar Oil oral capsule Start: 05/31/23 9:08:00 EDT Start Date: 05/31/23 Status: Ordered Shingrix intramuscular injection Start: 01/10/18 16:40:00 EDT, 0.5 mL, IM, ONCE, Disp# 1 each, Refills: 1 Start Date: 01/10/18 Status: Ordered spironolactone 25 mg oral tablet Start: 04/12/23 8:55:00 EDT, 2 tab, PO, Daily Start Date: 04/12/23 Status: Ordered Vitamin C Start: 04/12/23 8:57:00 EDT Start Date: 04/12/23 Status: Ordered vitamin E Start: 04/12/23 8:57:00 EDT Start Date: 04/12/23 Status: Ordered Mental Status 05/31/23 Barriers to Learning one year None evide nt Mandatory Health Literacy Documentation Yes Health Literacy Communication Barriers N ever Primary Language Bahamian Problem List Condition Confirmation Course Effective Dates [...] Service Informant Right knee DJD Discharge Diagnosis 05/31/23 Non-Specified Procedures Procedure Date Related Diagnosis Body Site [...] the results. 6Ammended: Prior outside mammograms from [facility] dated 11/17/2004, 03/10/2009, 03/23/2010, 03/24/2011, 06/10/2012, 01/11/2014, [...] schwannoma; larger than in 2008, similar to 2013; T7/8 2mm R paracentral [...] oldest [Reference Range]: 1 Height 170 cm (05/31/23 9:03 AM) Patient Weight 84 kg (05/31/23 9:03 AM) Body Mass Index 29.07 kg/m2 (05/31/23 9:03 AM) Temperature [36.5-37.9 DegC] 36.0 DegC *LOW* (05/31/23 9:03 AM) Heart Rate 48 bpm (05/31/23 9:03 AM) Blood Pressure 132/64mmHg (05/31/23 9:03 AM) Cuff Pulse Pressure 68 mmHg (05/31/23 9:03 AM) Social History Social History Type Response Smoking Status Never smoked cigaret angelica Sex Female Pre-OP H & P * JUAN M Muse Cory D: PERFORM, MODIFY, MODIFY, MODIFY, MODIFY Event Display: Pre-OP H & P Authored Date: [id number] PRE-OPERATIVE HISTORY AND PHYSICAL Name: OMI MEZA Patient Number: [id number] : 1945 Date of Service: 05/31/2023 PRE-OP Diagnosis: Right knee DJD Planned Procedure: Right knee total knee arthroplasty Chief Complaint: Right knee pain History of Present Illness (including history relevant to procedure): This 77-year-old female presents today for her preoperative history and physical. She is scheduled to undergo a right knee total knee arthroplasty on 06/26/2023. She has a longstanding history of right knee pain. Symptoms have been ongoing for several years. Pain has become worse over the last 6 months. It is primarily lateral.She notes a deviation of her leg, making her "knock kneed". It is now affecting her ADLs. Pain is worse with weightbearing. She has tried conservative care measures including activity modification, oral medications, and injection therapy, without improvement. She elects to proceed with surgical intervention after being educated about potential risks and outcomes. Preoperative imaging has been obtained. No numbness or tingling. She denies any catching or locking. She is unsure if the right knee has become swollen. There is frequent night pain. Review Of Systems: A total of 10 systems were reviewed and are significant for below stated conditions Social history: Patient is retired. No tobacco use, no EtOH use. . Family history: Significant for hypertension, cancer, Parkinson's disease, and heart disease. Parents are . Past Medical History: Problems: Osteoarthritis of right knee HTN (hypertension) GERD (gastroesophageal reflux disease) Acute back pain with sciatica Chronic constipation Right lumbar radiculopathy Low back pain Acute upper respiratory infection Breast cancer screening Excessive weight gain Hematuria, gross Acute cystitis Overweight Alopecia Dyspnea Insomnia Chronic pain disorder Anxiety Adult hypothyroidism Schwannomatosis History of cardiac arrest after back surgery 1998 TIA History of acute renal failure. Procedure History Procedure Procedure Date Comments X-ray of both knees - UOC1. Right knee: Mild narrowing medial compartment small osteophytes medial compartment no fracture no other bony or osseous abnormality2. Lucency at the tibial impant interface on AP view no significant lucency on the lateral view concern for tibial loosening no fracture noted. Mammogram 03/25/2020 - No mammographic evidence of malignancy. 1 year screening is recommended. MRI of knee 03/04/2020 - RIGHT KNEEPartial tear of mid to upper anterior curciate ligament.Partial tear of lower portion of posterior cruciate ligament. Colonoscopy 09/04/2019 - Diverticulosis. Screening colonoscopy in 5 years would be recommended in view of the family history, sooner if symptoms warrant. X-ray tomography of lumbar spine 08/14/2019 - No acute fractureMultilevel disc space narrowing with spondylitic spurring and facet arthosis as detailed above.Levoscoliosis Mammogram 03/20/2019 - IMPRESSION: ACR BI-RADS CATEGORY 2: BENIGNThere is no mammogrpahic evidence of malignancy. A 1 year screening mammogram is recommended(03/20/2020). The patient will receive written notification of the results. Mammogram 03/05/2018 - Ammended: Prior outside mammograms from [facility] dated 11/17/2004, 03/10/2009, 03/23/2010,03/24/2011, 06/10/2012, 01/11/2014, 12/12/2015 became available for review. There is stable asymmetry inthe posterior right breast along the prosterior nipple line on the cc view. No new suspicious masses, asynnetries, areas of architectural distortion or suspicious calcifications identified bilaterally. Recommended routine screening mammography in 1 year. - There is no mammographic evidence of malignancy. Prior outside mammograms are currently being requested and if obtained they will be reviewed, compareed to the current exam to assess for any more subtle changes. ULTRASOUND BREAST LIMITED 04/01/2017 - normal Bilateral mammography 12/04/2016 - normal, breast density category B (scattered fibroglandular) MRI of thoracic spine 11/06/2016 - prior T11 & T12 partial laminectomies B; enhancing lesion (9 X 8 mm) in L ant. spinal canal @T12; consistent with residual/recurrent schwannoma; larger than in 2008, similar to 2012; T7/8 2mm Rparacentral disc protrusion partially effaces subarachnoid space; T8/9 2mm L paracentral disc protrusion partially effaces subarachnoid space; T9/10 3mm broad-based midline disc protrusion cuases sl. flattening of cord; T 10/11 4 mm disc protrusion centered to L of midline, causes sl flattening of cord; T11/12 2mm midline disc protrusion partially effaces ventral subarachnoid space; most of abovedisc problems are unchanged MRI of lumbar spine 11/01/2016 - prior partial laminectomies T11 & T12; no significant [...] annular bulge w/ mild flattening of thecal sac,severe L & mild R foraminal stenosis, findings are similar to previous MRI EGD US EXAM DUODENUM/JEJUNUM 03/16/2016 - multiple fundic glands polyps, prepyloric antral gastritis Colonoscopy 11/07/2009 - Essentially normal colonoscopy History of left knee replacement Revision left total knee arthroplasty 2001 2020 History of back surgery 1998 - Remove tumor History of back surgery 1997 - Remove tumor H/O: hysterectomy 1989 Allergies and Sensitivities: HYDROcodone(Shaking) HYDROcodone(Nausea) Flexeril(Hallucinations) Triavil(Hallucinations) gabapentin(Shaking) Does not take NSAIDs due to history of renal failure. Current Home Meds: (Last Updated 05/31 09:09) acetaminophen-oxyCODONE (Percocet 5 mg-325 mg oral tablet) 1 tab PO q12h PRN: as needed for pain amLODIPine (amLODIPine 5 mg oral tablet) 10 mg PO Daily ascorbic acid/chondroitin/glucosa/tamra (Glucosamine Chondroitin) ascorbic acid (Vitamin C) atenolol (atenolol 50 mg oral tablet) take 1 tablet by mouth once daily biotin (Hair, Skin & Nails) calcium-vitamin D (calcium with vitamin D 500 mg) escitalopram (escitalopram 5 mg oral tablet) 5 mg PO Daily evening primrose ([place]oma [place] Oil oral capsule) famotidine (famotidine 20 mg oral tablet) 20 mg PO qhs fenofibrate (fenofibrate 160 mg oral tablet) 160 mg PO Daily flax (Flax Seed Oil) hydroCHLOROthiazide (hydroCHLOROthiazide 25 mg oral tablet) take 1 tablet by mouth once daily lysine multivitamin 1 tab PO Daily pravastatin (pravastatin 80 mg oral tablet) 80 mg PO Daily spironolactone (spironolactone 25 mg oral tablet) 50 mg PO Daily vitamin E zoster vaccine, inactivated (Shingrix intramuscular injection) 0.5 mL IM ONCE Vitals: Last Updated 05/31/23 09:03 Weights: Last Updated 05/31/23 09:03 Date Temp Pulse BP RR SpO2 FIO2 Date Wt(kg) Wt(lb) 05/31 09:03 36.0 48 132/64 97 05/31 09:03 84.0 185 05/31 09:03 84.0 185 24 Hr Tmax: 36.0 at 05/31 09:03 Initial Wt: 05/31 84.0 kg 185 lb Physical Exam: (relevant to the procedure, including heart and lung evaluation) General: Well-developed, well-nourished, elderly female, in no acute distress. Sitting in a chair. Alert and oriented. HEENT: Normocephalic, atraumatic. Eyes PERRLA, EOMI. Nares patent bilaterally without nasal drainage. Oropharynx without erythema. Oral mucosa moist. Fair dentition. Neck: No JVD_ Cardiac: RRR, 3/6 systolic ejection murmur noted. No gallops or rubs. Peripheral pulses are 2+. Lungs: Clear to auscultation bilaterally. No crackles, rhonchi, or wheezing. Good air movement. Abdomen: Mildly obese. Bowel sounds present x4. Soft nontender. No organomegaly. No masses. Extremities: Obvious valgus positioning of the right knee. She has full terminal extension. Flexionto greater than 90 degrees. Strength is 5/5 with fair quad tone. She has focal discomfort with palpation over the lateral joint line. There is also some mild medial joint line discomfort. She has peripatellar pain with palpation. No defect in the patellar tendon or quadriceps tendon. Ambulating today with an antalgic gait. Neuro: Gross sensation is intact across both lower extremities by soft touch. Skin: Warm dry with good turgor. No rashes. No ecchymosis or erythema at the right knee. No intra-articular effusion. Well-healed surgical scar is present on the left knee. Studies of radiology results (relevant to the procedure): Radiographic imaging previously obtained of the right knee shows end-stage DJD of the knee with significant joint space narrowing of the medial lateral compartments, periarticular osteophytes, and sclerosis. ASSESSMENT: Right knee DJD Plan: Approximate 30 minutes was spent with the patient reviewing operative procedure, postoperative recovery, physical therapy requirements, and medication use. Postoperative prescriptions for low-dose narcotic and warfarin or Eliquis will be sent at discharge from the hospital. She is aware that she will be staying 1 night. Preoperative lab work, EKG, and chest x-ray will be obtained today at [facility]. She has an appointment to see her PCP next week. She will also obtain clearance from her molding line operator Dr. Callahan. PDMP was checked and there are no concerning findings. She currently is asymptomatic of any COVID-19 symptoms. She does not have a walker. Prescription was provided. She would like tohave home health for 2 weeks and then attend outpatient PT in [place]. Postop follow-up appointment has been made with me for July 11. This dictation has been completed using [employer] text voice recognition software. Grammatical errors, omissions, insertions, and misspellings may be present due to the limitations of the software. Electronic Signature on File Electronically Reviewed/Signed by: Donnie Muse PA-C Author Signature Dt/Tm:05/31/2023 04:58 PM Division of Sports Medicine Electronically Reviewed/Signed by: Donnie Muse PA-C Cosigner Signature Dt/Tm: 05/31/2023 04:59PM Division of Sports Medicine Electronically Reviewed/Signed by: Yousif Licea MD Cosigner Signature Dt/Tm: 05/31/2023 07:04 PM Drop Clipper for Clinical Affairs, [facility] Amada Professor in Orthopaedics Kier Drier, [facility] CDS Patient Care team information Care Team Personnel Name: JUAN M Plascencia Lynn Position: Physician [employer] Insulator Helper Exempt - Vasc Surg Member Role: Lifetime Relationship Address: Address: [address] [place] [address] [place] Name: MD Gruber Cara M Position: Referring DIRECT Member Role: Primary Care Provider Address: Address: [facility] [place] [address] Care Team Related Persons Name: OCHOA MEZA Address: home [address] [place] [phone]
== END 2023-06-27 11:49 | disposition home health service (06) ==
LOC: ASU 05:03 → 3E 05:03